=== PATIENT | male | born 1950 | race Caucasian/White ===

== ENCOUNTER 2017-08-08 16:45 | Inpatient (IN) | payer OTHER, MEDICARE ==
[~2017-08-08] VITALS: Ht 172.7 cm; Wt 58.0 kg
[2017-08-08 16:51] VITALS: BP 111/60; PULSE 80; RESP 16; TEMP 99.2; O2SAT 93
[2017-08-08 17:34] LABS: BASOPHIL # 0.2 TH/MM3 (0-0.2); BASOPHIL % 0.8 % (0.0-2.0); EOSINOPHIL # 0.1 TH/MM3 (0-0.4); EOSINOPHIL % 0.4 % (0.0-4.0); HEMATOCRIT 34.2 % (39.0-51.0); HEMOGLOBIN 11.6 GM/DL (13.0-17.0); LYMPHOCYTE # 1.8 TH/MM3 (1.0-4.8); MEAN CELL VOLUME 87.3 FL (80.0-100.0); MEAN CORPUSCULAR HEMOGLOBIN 29.6 PG (27.0-34.0); MEAN CORPUSCULAR HGB CONC 33.9 % (32.0-36.0); MEAN PLATELET VOLUME 7.7 FL (7.0-11.0); MONO % 4.5 % (0.0-8.0); MONOCYTE # 1.3 TH/MM3 (0-0.9); NEUT % 88.3 % (16.0-70.0); PLATELET COUNT 831 TH/MM3 (150-450); RED BLOOD COUNT 3.92 MIL/MM3 (4.50-5.90); WHITE BLOOD COUNT 29.5 TH/MM3 (4.0-11.0)
--- NOTE | 2017-08-08 17:42 | RADRPT ---
EXAM DATE: 08/08/2017 5:24 PM EDT AGE/SEX: 66 years / Male INDICATIONS: Cough, shortness of breath and right sided chest pain. CLINICAL DATA: This is the patient's initial encounter. Patient reports that signs and symptoms have been present for 2 weeks and indicates a pain score of 6/10. MEDICAL/SURGICAL HISTORY: Chronic obstructive pulmonary disease. . Stents. COMPARISON: No prior [place] exams available for comparison. FINDINGS: PA and lateral views of the chest demonstrate the lungs to be symmetrically aerated with a moderate s ize left pleural effusion. Cardiomediastinal contours are unremarkable. Osseous structures are intact . Clips at the GE junction CONCLUSION: Moderate size right pleural effusion Electronically signed by: Bahman Wright MD 08/08/2017 5:40 PM EDT
[2017-08-08 17:50] LABS: ALBUMIN 2.3 GM/DL (3.4-5.0); AST (GOT) 32 U/L (15-37); BICARBONATE 23.6 MEQ/L (21.0-32.0); BLOOD UREA NITROGEN 13 MG/DL (7-18); CALCIUM 8.9 MG/DL (8.5-10.1); CHLORIDE 94 MEQ/L (98-107); CREATININE 0.69 MG/DL (0.60-1.30); GLOMERULAR FILTRATION RATE 115 ML/MIN (>89); GLUCOSE,RANDOM 98 MG/DL (74-106); SODIUM (NA) 128 MEQ/L (136-145)
[2017-08-08 17:52] LABS: ALT (GPT) 24 U/L (12-78)
[2017-08-08 17:55] LABS: ALKALINE PHOSPHATASE 170 U/L (45-117); TOTAL BILIRUBIN ADULT 0.5 MG/DL (0.2-1.0); TOTAL PROTEIN 7.6 GM/DL (6.4-8.2)
[2017-08-08] MEDS ORDERED: cefTRIAXone INJ 2,000 MG in SODIUM CHLORIDE 0.9% INJ 100 ML IV STA (18:25)
[2017-08-08] MEDS ORDERED: AZITHROMYCIN INJ 500 MG in SODIUM CHLOR 0.9% 250 ML INJ 250 ML IV STA (18:25)
--- NOTE | 2017-08-08 18:27 | PD ---
HPI Chief Complaint: Abnormal Results Time Seen by Provider: 18:25 Travel History International Travel<30 days: No Contact w/Intl Traveler<30days: No Traveled to known affect area: No History of Present Illness HPI 66-year-old male with history of CAD, COPD, tobacco dependency, presents emergency department for evaluation. Patient tells me he has been experiencing worsening weakness over the last 3 months. [facility]. He was told that his white count is 29 and he needed to come to the emergency department. He has had significant weight loss. He has had worsening shortness of breath and states that it is difficult to do any significant activity because he becomes short of breath. Patient states he has lost his appetite. He denies any fevers or chills. He does report continuing to smoke tobacco cigarettes. He has no other symptoms to report at this time. [facility] Past Medical History Cardiovascular Problems: Yes COPD: Yes Social History Tobacco Use: Yes Allergies-Medications (Allergen,Severity, Reaction): Coded Allergies: No Known Allergies (Unverified , 08/08/17) Reported Meds & Prescriptions Reported Meds & Active Scripts Active Reported Suboxone Sublingual Film (Buprenorphine-Naloxone Sublingual Film) 8-2 Mg Film 1 Film SL BID Unique ID number required: Omeprazole 40 Mg Cap 40 Mg BID Review of Systems Except as stated in HPI: all other systems reviewed are Neg Physical Exam Narrative GENERAL: Thin, chronically ill appearing patient, in no acute distress w SKIN: Focused skin assessment warm/dry. HEAD: Atraumatic. Normocephalic. EYES: Pupils equal and round. No scleral icterus. No injection or drainage. ENT: No nasal bleeding or discharge. Mucous membranes pink and moist. NECK: Trachea midline. No JVD. CARDIOVASCULAR: Regular rate and rhythm. RESPIRATORY: No accessory muscle use. Diminished, coarse to auscultation. Breath sounds equal bilaterally. GASTROINTESTINAL: Abdomen soft, non-tender, nondistended. Hepatic and splenic margins not palpable. MUSCULOSKELETAL: No obvious deformities. No clubbing. No cyanosis. No edema. NEUROLOGICAL: Awake and alert. No obvious cranial nerve deficits. Motor grossly within normal limits. Normal speech. PSYCHIATRIC: Appropriate mood and affect; insight and judgment normal. Data Data Last Documented VS Vital Signs Date Time Temp Pulse Resp B/P (MAP) Pulse Ox O2 Delivery O2 Flow Rate FiO2 08/08/17 18:37 98.1 66 19 127/61 (83) 95 Room Air Orders Orders Sepsis Workup Initiated (08/08/17 ) Complete Blood Count With Diff (08/08/17 16:53) Comprehensive Metabolic Panel (08/08/17 16:53) Lactic Acid Sepsis Protocol (08/08/17 16:53) Blood Culture (08/08/17 16:53) Iv Access Insert/Monitor (08/08/17 16:53) Oxygen Administration (08/08/17 16:53) Oximetry (08/08/17 16:53) Blood Glucose (08/08/17 16:53) Chest, Pa & Lat (08/08/17 ) Sodium Chlor 0.9% 1000 Ml Inj (Ns 1000 M (08/08/17 18:30) Ct Thorax/ Chest W Iv Contrast (08/08/17 ) Ceftriaxone Inj (Rocephin Inj) (08/08/17 18:25) Azithromycin Inj (Zithromax Inj) (08/08/17 18:25) Iohexol 350 Inj (Omnipaque 350 Inj) (08/08/17 19:05) Labs Laboratory Tests Test 08/08/17 17:05 08/08/17 17:10 White Blood Count 29.5 TH/MM3 Red Blood Count 3.92 MIL/MM3 Hemoglobin 11.6 GM/DL Hematocrit 34.2 % Mean Corpuscular Volume 87.3 FL Mean Corpuscular Hemoglobin 29.6 PG Mean Corpuscular Hemoglobin Concent 33.9 % Red Cell Distribution Width 15.0 % Platelet Count 831 TH/MM3 Mean Platelet Volume 7.7 FL Neutrophils (%) (Auto) 88.3 % Lymphocytes (%) (Auto) 6.0 % Monocytes (%) (Auto) 4.5 % Eosinophils (%) (Auto) 0.4 % Basophils (%) (Auto) 0.8 % Neutrophils # (Auto) 26.0 TH/MM3 Lymphocytes # (Auto) 1.8 TH/MM3 Monocytes # (Auto) 1.3 TH/MM3 Eosinophils # (Auto) 0.1 TH/MM3 Basophils # (Auto) 0.2 TH/MM3 CBC Comment AUTO DIFF Differential Comment AUTO DIFF CONFIRMED Platelet Estimate HIGH Platelet Morphology Comment NORMAL Blood Urea Nitrogen 13 MG/DL Creatinine 0.69 MG/DL Random Glucose 98 MG/DL Total Protein 7.6 GM/DL Albumin 2.3 GM/DL Calcium Level 8.9 MG/DL Alkaline Phosphatase 170 U/L Aspartate Amino Transf (AST/SGOT) 32 U/L Alanine Aminotransferase (ALT/SGPT) 24 U/L Total Bilirubin 0.5 MG/DL Sodium Level 128 MEQ/L Potassium Level 4.0 MEQ/L Chloride Level 94 MEQ/L Carbon Dioxide Level 23.6 MEQ/L Anion Gap 10 MEQ/L Estimat Glomerular Filtration Rate 115 ML/MIN Lactic Acid Level 1.2 mmol/L MDM Medical Decision Making Medical Screen Exam Complete: Yes Emergency Medical Condition: Yes Medical Record Reviewed: Yes Differential Diagnosis Pneumonia versus COPD exacerbation versus electrolyte abnormality versus neoplasm versus sepsis Narrative Course 66-year-old male presents emergency department for evaluation. Patient appears chronically ill. He is then. He has diminished and coarse breath sounds throughout. Sepsis workup was initiated in triage. Laboratory Tests Test 08/08/17 17:05 08/08/17 17:10 White Blood Count 29.5 TH/MM3 Red Blood Count 3.92 MIL/MM3 Hemoglobin 11.6 GM/DL Hematocrit 34.2 % Mean Corpuscular Volume 87.3 FL Mean Corpuscular Hemoglobin 29.6 PG Mean Corpuscular Hemoglobin Concent 33.9 % Red Cell Distribution Width 15.0 % Platelet Count 831 TH/MM3 Mean Platelet Volume 7.7 FL Neutrophils (%) (Auto) 88.3 % Lymphocytes (%) (Auto) 6.0 % Monocytes (%) (Auto) 4.5 % Eosinophils (%) (Auto) 0.4 % Basophils (%) (Auto) 0.8 % Neutrophils # (Auto) 26.0 TH/MM3 Lymphocytes # (Auto) 1.8 TH/MM3 Monocytes # (Auto) 1.3 TH/MM3 Eosinophils # (Auto) 0.1 TH/MM3 Basophils # (Auto) 0.2 TH/MM3 CBC Comment AUTO DIFF Differential Comment AUTO DIFF CONFIRMED Platelet Estimate HIGH Platelet Morphology Comment NORMAL Blood Urea Nitrogen 13 MG/DL Creatinine 0.69 MG/DL Random Glucose 98 MG/DL Total Protein 7.6 GM/DL Albumin 2.3 GM/DL Calcium Level 8.9 MG/DL Alkaline Phosphatase 170 U/L Aspartate Amino Transf (AST/SGOT) 32 U/L Alanine Aminotransferase (ALT/SGPT) 24 U/L Total Bilirubin 0.5 MG/DL Sodium Level 128 MEQ/L Potassium Level 4.0 MEQ/L Chloride Level 94 MEQ/L Carbon Dioxide Level 23.6 MEQ/L Anion Gap 10 MEQ/L Estimat Glomerular Filtration Rate 115 ML/MIN Lactic Acid Level 1.2 mmol/L Last Impressions Chest X-Ray 08/08/17 0000 Signed Impressions: CONCLUSION: Moderate size right pleural effusion Chest CT 08/08/17 0000 Signed Impressions: CONCLUSION: 1. Large right effusion and consolidation. 2. Granulomatous disease is noted as above. Patient has a leukocytosis of 29.5 with a neutrophilia of 26. Chemistry is with mild hyponatremia. Lactic acid is within normal limits of 1.2. Chest x- ray shows a moderate right sized pleural effusion. CT imaging shows large right effusion and consolidation. Granulomatous disease is noted. Patient was given azithromycin and Rocephin. I discussed the patient my attending physician who has reviewed the findings and assessed the patient. he will be admitted to hospitalist service. Plan is discussed with the patient and his at bedside. They are in agreement with this plan of care. Diagnosis Primary Impression: Pleural effusion Additional Impression: Leukocytosis Qualified Codes: D72.829 - Elevated white blood cell count, unspecified Admitting Information Admitting Physician Requests: Admit Condition: Stable ClaytonLupe bartlettstefani MARAVILLA Aug 08, 2017 18:27
[2017-08-08] MEDS ORDERED: OMEP40CA2 PO (18:28)
[2017-08-08] MEDS ORDERED: SUBO8MIS SL (18:28)
[2017-08-08] MEDS ORDERED: SODIUM CHLOR 0.9% 1000 ML INJ 1,000 ML IV ONE (18:30)
[2017-08-08 18:37] VITALS: BP 127/61; PULSE 65; PULSE 66; RESP 19; TEMP 98.1; TEMP 98.5; O2SAT 95
[2017-08-08] MEDS ORDERED: IOHEXOL 350 MG/ML 10 ML VIAL (for RAD DIAG) IVCONTRAST ONE (19:05)
--- NOTE | 2017-08-08 19:39 | RADRPT ---
EXAM DATE: 08/08/2017 7:02 PM EDT AGE/SEX: 66 years / Male INDICATIONS: Short of breath. CLINICAL DATA: This is the patient's initial encounter. Patient reports that signs and symptoms have been present for 1 day and indicates a pain score of 5/10. MEDICAL/SURGICAL HISTORY: None. None. RADIATION DOSE: 6.7 CTDI (mGy) COMPARISON: No prior [place] exams available for comparison. TECHNIQUE: Multiple contiguous axial images were obtained through the chest during bolus infusion of 100 ml Omnipaque 350 (iohexol) nonionic water-soluble contrast as a single exam dose. Images were obtained in suspended respiration using multiple row detector helical technique. Using automated ex posure control and adjustment of the mA and/or kV according to patient size, radiation dose was kept as low as reasonably achievable to obtain optimal diagnostic quality images. FINDINGS: There is calcified mediastinal adenopathy with multiple enlarged partially calcified lymph nodes thro ughout the mediastinum. There are calcified granulomas in the spleen. A large right-sided pleural eff usion is noted, calcified bilateral hilar lymph nodes, and there is consolidation in the right lower lobe. There are scattered calcified granulomas present. Review of lung windows demonstrate a 1.7 cm n odular focus in the left lower lobe likely related to atelectasis. CONCLUSION: 1. Large right effusion and consolidation. 2. Granulomatous disease is noted as above. Electronically signed by: Elvis Shahid MD 08/08/2017 7:38 PM EDT
[2017-08-08] MEDS ORDERED: SENNOSIDES 8.6 MG TAB PO PRN (22:30)
[2017-08-08] MEDS ORDERED: BISACODYL 10 MG SUPP RECTAL PRN (22:30)
[2017-08-08] MEDS ORDERED: RESP: ALBUTEROL 2.5 MG/IPRATROPIUM 0.5 MG NEB (PRN) NEB (22:30)
[2017-08-08] MEDS ORDERED: LACTULOSE SYRUP 20 GM/30 ML CUP PO PRN (22:30)
[2017-08-08] MEDS ORDERED: SODIUM CHLORIDE 0.9% FLUSH 10 ML FLUSH IV FLUSH PRN (22:30)
[2017-08-08] MEDS ORDERED: ACETAMINOPHEN 325 MG TAB PO PRN (22:30)
[2017-08-08] MEDS ORDERED: MAGNESIUM HYDROXIDE SUSP 30 ML CUP PO PRN (22:30)
[2017-08-08] MEDS ORDERED: NALOXONE HCL 0.4 MG/ML AMP IV PUSH PRN (22:30)
[2017-08-08] MEDS ORDERED: MORPHINE SULFATE 4 MG/ML INJ IV PUSH PRN (22:30)
--- NOTE | 2017-08-08 22:41 | HHI.HP ---
HPI Service [facility] Primary Care Physician [facility] Admission Diagnosis Sepsis; PNA Diagnoses: Travel History International Travel<30 Days: No Contact w/Intl Traveler <30 Da: No Traveled to Known Affected Are: No History of Present Illness 66-year-old male with a past medical history significant for hyperlipidemia, coronary artery disease, hepatitis C, fibromyalgia and chronic pain presents to the emergency department for evaluation of shortness of breath. The patient reports she has been short of breath 1 month. He reports he has had subjective fevers/chills and a productive cough for several weeks. He also complains of a 15-20 pound weight loss over the past month secondary to anorexia. He has a complicated past medical history involving a vagotomy and unknown stomach reconstruction/bypass. The patient is a poor historian and cannot tell me further details of his procedures or past medical history. He denies any chest pain. Reports anorexia and nausea. Denies abdominal pain/ diarrhea/vomiting. No lateralizing signs/symptoms. Review of Systems Except as stated in HPI: all other systems reviewed are Neg Past Family Social History Past Medical History Hyperlipidemia Coronary artery disease Hepatitis C Chronic pain Fibromyalgia Past Surgical History Cardiac cath with stent placement 1 Neck fusion Low back surgery Vagotomy Unspecified gastric surgery/bypass Reported Medications Reported Meds & Active Scripts Active Reported Suboxone Sublingual Film (Buprenorphine-Naloxone Sublingual Film) 8-2 Mg Film 1 Film SL BID Unique ID number required: Omeprazole 40 Mg Cap 40 Mg BID Allergies: Coded Allergies: No Known Allergies (Unverified , 08/08/17) Family History Father with CAD Social History Smokes approximately 1 pack per day. Denies alcohol and illicit drugs. Physical Exam Vital Signs Vital Signs Date Time Temp Pulse Resp B/P (MAP) Pulse Ox O2 Delivery O2 Flow Rate FiO2 08/08/17 18:37 98.1 66 19 127/61 (83) 95 Room Air 08/08/17 18:37 98.5 65 19 127/61 (83) 95 Room Air 08/08/17 18:30 Room Air 08/08/17 18:28 19 Room Air 08/08/17 16:51 99.2 80 16 111/60 (96) 93 Physical Exam GENERAL: Thin, male lying in bed SKIN: No rashes, ecchymoses or lesions. Cool and dry. HEAD: Atraumatic. Normocephalic. No temporal or scalp tenderness. EYES: Pupils equal round and reactive. Extraocular motions intact. No scleral icterus. No injection or drainage. ENT: Nose without bleeding, purulent drainage or septal hematoma. Throat without erythema, tonsillar hypertrophy or exudate. Uvula midline. Airway patent. NECK: Trachea midline. No JVD or lymphadenopathy. Supple, nontender, no meningeal signs. CARDIOVASCULAR: Regular rate and rhythm without murmurs, gallops, or rubs. RESPIRATORY: Crackles and decreased breath sounds on the right GASTROINTESTINAL: Abdomen soft, non-tender, nondistended. No hepato-splenomegaly , or palpable masses. No guarding. MUSCULOSKELETAL: Extremities without clubbing, cyanosis, or edema. No joint tenderness, effusion, or edema noted. No calf tenderness. NEUROLOGICAL: Awake and alert. Cranial nerves II through XII intact. Motor and sensory grossly within normal limits. Normal speech. Laboratory Laboratory Tests Test 08/08/17 17:05 08/08/17 17:10 White Blood Count 29.5 Red Blood Count 3.92 Hemoglobin 11.6 Hematocrit 34.2 Mean Corpuscular Volume 87.3 Mean Corpuscular Hemoglobin 29.6 Mean Corpuscular Hemoglobin Concent 33.9 Red Cell Distribution Width 15.0 Platelet Count 831 Mean Platelet Volume 7.7 Neutrophils (%) (Auto) 88.3 Lymphocytes (%) (Auto) 6.0 Monocytes (%) (Auto) 4.5 Eosinophils (%) (Auto) 0.4 Basophils (%) (Auto) 0.8 Neutrophils # (Auto) 26.0 Lymphocytes # (Auto) 1.8 Monocytes # (Auto) 1.3 Eosinophils # (Auto) 0.1 Basophils # (Auto) 0.2 CBC Comment AUTO DIFF Differential Comment AUTO DIFF CONFIRMED Platelet Estimate HIGH Platelet Morphology Comment NORMAL Blood Urea Nitrogen 13 Creatinine 0.69 Random Glucose 98 Total Protein 7.6 Albumin 2.3 Calcium Level 8.9 Alkaline Phosphatase 170 Aspartate Amino Transf (AST/SGOT) 32 Alanine Aminotransferase (ALT/SGPT) 24 Total Bilirubin 0.5 Sodium Level 128 Potassium Level 4.0 Chloride Level 94 Carbon Dioxide Level 23.6 Anion Gap 10 Estimat Glomerular Filtration Rate 115 Lactic Acid Level 1.2 Date/Time Source Procedure Growth Status 08/08/17 18:38 Blood Peripheral Aerobic Blood Culture Pending Received 08/08/17 18:38 Blood Peripheral Anaerobic Blood Culture Pending Received Result Diagram: 08/08/17 1705 08/08/17 1710 [place] VTE Risk Assessment Caprini VTE Risk Assessment: Mod/High Risk (score >= 2) Caprini Risk Assessment Model Point Value = 1 Point Value = 2 Point Value = 3 Point Value = 5 Age 41-60 Minor surgery BMI > 25 kg/m2 Swollen legs Varicose veins or History of unexplained or recurrent spontaneous Oral contraceptives or hormone replacement Sepsis (< 1 month) Serious lung disease, including pneumonia (< 1 month) Abnormal pulmonary function Acute myocardial infarction Congestive heart failure (< 1 month) History of inflammatory bowel disease Medical patient at bed rest Age 61-74 Arthroscopic surgery Major open surgery (> 45 min) Laparoscopic surgery (> 45 min) Malignancy Confined to bed (> 72 hours) Immobilizing plaster cast Central venous access Age >= 75 History of VTE Family history of VTE Factor V Leiden Prothrombin [id number] Lupus anticoagulant Anticardiolipin antibodies Elevated serum homocysteine Heparin-induced thrombocytopenia Other congenital or acquired thrombophilia Stroke (< 1 month) Elective arthroplasty Hip, pelvis, or leg fracture Acute spinal cord injury (< 1 month) Prophylaxis Regimen Total Risk Factor Score Risk Level Prophylaxis Regimen 0-1 Low Early ambulation 2 Moderate Order ONE of the following: *Sequential Compression Device (SCD) *Heparin 5000 units SQ BID 3-4 Higher Order ONE of the following medications: *Heparin 5000 units SQ TID *Enoxaparin/Lovenox 40 mg SQ daily (WT < 150 kg, CrCl > 30 mL/min) *Enoxaparin/Lovenox 30 mg SQ daily (WT < 150 kg, CrCl > 10-29 mL/min) *Enoxaparin/Lovenox 30 mg SQ BID (WT < 150 kg, CrCl > 30 mL/min) AND/OR *Sequential Compression Device (SCD) 5 or more Highest Order ONE of the following medications: *Heparin 5000 units SQ TID (Preferred with Epidurals) *Enoxaparin/Lovenox 40 mg SQ daily (WT < 150 kg, CrCl > 30 mL/min) *Enoxaparin/Lovenox 30 mg SQ daily (WT < 150 kg, CrCl > 10-29 mL/min) *Enoxaparin/Lovenox 30 mg SQ BID (WT < 150 kg, CrCl > 30 mL/min) AND *Sequential Compression Device (SCD) Assessment and Plan Assessment and Plan Assessment/plan: 1. Pneumonia/pleural effusion Patient with large right pleural effusion and consolidation on chest x-ray and chest CT, personally reviewed Rocephin/azithromycin Interventional radiology consulted for thoracentesis Given patient's recent weight loss and significant smoking history, cytology ordered 2. Anorexia/weight loss Unclear etiology Patient with complicated abdominal surgeries for unclear reasons as he is a poor historian, medical records requested from the [place] CT of the abdomen/pelvis pending 3. Hyperlipidemia/coronary artery disease Resume home medications once reconciled 4. Hepatitis C Follow-up as an outpatient 5. Chronic pain On Suboxone at home Morphine for pain FEN N.p.o. Electrolytes: Monitor and replete as needed NS at 70 cc/hour Holding pharmacologic anticoagulation for possible thoracentesis Physician Certification 2 Midnight Certification Type: Admission for Inpatient Services Order for Inpatient Services The services are ordered in accordance with Medicare regulations or non- Medicare payer requirements, as applicable. In the case of services not specified as inpatient-only, they are appropriately provided as inpatient services in accordance with the 2-midnight benchmark. Estimated LOS (days): 2 2 days is the estimated time the patient will need to remain in the hospital, assuming treatment plan goals are met and no additional complications. Post-Hospital Plan: Not yet determined Felicia Madden MD Aug 08, 2017 22:41
[2017-08-08 23:23] VITALS: BP 118/62; PULSE 62; RESP 19; TEMP 97.9; O2SAT 93
[2017-08-08] MEDS ORDERED: OMEP20CA2 PO (23:39)
[2017-08-09] VITALS (13 sets, daily range): BP systolic 104–134; BP diastolic 51–80; PULSE 47–99; RESP 16–18; TEMP 97.4–99.2; O2SAT 91–98
[2017-08-09] MEDS ORDERED: FAMOTIDINE 20 MG TAB PO ONE
[2017-08-09] MEDS: ONDANSETRON ODT 4 MG TAB PO PRN ×2 (00:02→11:03)
[2017-08-09] MEDS: SODIUM CHLOR 0.9% 1000 ML INJ 1,000 ML IV SCH ×2 (00:02→12:21)
[2017-08-09] MEDS: HEPARIN SODIUM - SQ 10,000 UNITS/ML VIAL SQ SCH ×3 (00:02→23:00)
[2017-08-09 00:44] LABS: INTERNATIONAL NORMALIZED RATIO 1.4 RATIO; PROTHROMBIN TIME - PATIENT 14.5 SEC (9.8-11.6)
[2017-08-09 06:25] LABS: AUTOMATED NEUTROPHIL # 16.5 TH/MM3 (1.8-7.7); BASOPHIL # 0.7 TH/MM3 (0-0.2); BASOPHIL % 3.2 % (0.0-2.0); EOSINOPHIL # 0.3 TH/MM3 (0-0.4); EOSINOPHIL % 1.4 % (0.0-4.0); HEMATOCRIT 29.9 % (39.0-51.0); HEMOGLOBIN 9.9 GM/DL (13.0-17.0); LYMPH % 6.9 % (9.0-44.0); LYMPHOCYTE # 1.4 TH/MM3 (1.0-4.8); MEAN CELL VOLUME 88.5 FL (80.0-100.0); MEAN CORPUSCULAR HEMOGLOBIN 29.2 PG (27.0-34.0); MEAN CORPUSCULAR HGB CONC 33.1 % (32.0-36.0); MEAN PLATELET VOLUME 7.8 FL (7.0-11.0); MONO % 6.8 % (0.0-8.0); MONOCYTE # 1.4 TH/MM3 (0-0.9); NEUT % 81.7 % (16.0-70.0); PLATELET COUNT 705 TH/MM3 (150-450); RED BLOOD COUNT 3.38 MIL/MM3 (4.50-5.90); RED CELL DISTRIBUTION WIDTH 14.7 % (11.6-17.2); WHITE BLOOD COUNT 20.2 TH/MM3 (4.0-11.0)
[2017-08-09 07:04] LABS: BICARBONATE 23.9 MEQ/L (21.0-32.0); CALCIUM 7.8 MG/DL (8.5-10.1); CREATININE 0.55 MG/DL (0.60-1.30)
[2017-08-09] MEDS: SODIUM CHLORIDE 0.9% FLUSH 10 ML FLUSH IV FLUSH SCH ×2 (09:00→21:00)
[2017-08-09] MEDS: DOCUSATE SODIUM 50 MG/SENNA 8.6 MG TAB PO SCH ×2 (09:00→21:00)
[2017-08-09] MEDS ORDERED: LIDOCAINE HCL 1% 20 ML VIAL ONE (10:16)
--- NOTE | 2017-08-09 10:30 | RADRPT ---
EXAM DATE: 08/09/2017 10:19 AM EDT AGE/SEX: 66 years / Male INDICATIONS: Post right thoracentesis. CLINICAL DATA: This is the patient's subsequent encounter. Patient reports that signs and symptoms h ave been present for 2 days and indicates a pain score of 2/10. MEDICAL/SURGICAL HISTORY: Cardiovascular disease. Hypercholesterolemia. Coronary artery stent. Cardiac cath. COPD COMPARISON: [facility] – [place], CHEST PA & LAT, 08/08/2017. . FINDINGS: Portable upright expiratory view of the chest demonstrates a normal-sized cardiac silhouette. There i s a persistent right basilar pleural-parenchymal opacity. It has not significantly changed in size fr om yesterday's examination. No pneumothorax is identified following thoracentesis. Bones demonstrate no acute abnormality. CONCLUSION: No pneumothorax following recent right thoracentesis. The complex right effusion and right lower lobe airspace consolidation is stable. Electronically signed by: Haresh Schaffer MD 08/09/2017 10:28 AM EDT
--- NOTE | 2017-08-09 10:37 | PD.RAD ---
Post US Procedure Prog Note Pre Procedure Diagnosis: (1) Pleural effusion Post Procedure Diagnosis: (1) Pleural effusion Procedure Date: Aug 09, 2017 Supervising Radiologist: Haresh Schaffer Anesthesia: Local Plan of Activity Patient to Unit: ROPU Patient Condition: Good See PACS Report for procedural detail/treatment Drainage Procedure Procedure 1 Imaging Guidance: Ultrasound Side: Right Procedure Type: Thoracentesis Drainage: Suction Fluid Removal (CCs): 120 Fluid Description: Cloudy, Yellow Findings: pleural effusion has multiple septations therefore cannot be completely aspirated percutaneously. Aspirated fluid and sent for evaluation. Plan post cxr then return to floor Haresh Schaffer MD Aug 09, 2017 10:36
--- NOTE | 2017-08-09 10:39 | RADRPT ---
EXAM DATE: 08/09/2017 10:14 AM EDT AGE/SEX: 66 years / Male INDICATIONS: Right pleural effusion. CLINICAL DATA: This is the patient's initial encounter. Patient reports that signs and symptoms have been present for 1 day and indicates a pain score of 0/10. MEDICAL/SURGICAL HISTORY: Hypercholesterolemia. Gastroesophageal reflux disease. Hepatitis C. COPD. . Cardiac catheterization with stent placement. Spinal fusion. Stomach surgery. [place] [facility] [place]. . FLUID: Total volume of 120 cc cc of cloudy, yellow fluid was removed. Fluid was sent to lab for ordered studies. . . TECHNIQUE: Ultrasound guidance for thoracentesis. Thoracentesis. The risks, benefits, and alternatives to ultrasound guided thoracentesis were explained to the patien t in lay simple terms, including the risk of bleeding and infection. Written and verbal informed con sent was obtained. Appropriate area for right thoracentesis was marked under ultrasound guidance with the patient in the upright position. Overlying skin was prepped and draped in the usual sterile fashion and with local anesthetic, a dermatotomy was made with an 11 blade scalpel. A 6 [place] thoracentesis catheter was placed in the pleural space and fluid was removed. Catheter was then removed and a sterile dressing applied. There were no immediate complications. The patient tolerated the procedure well and the lef t the ultrasound suite in stable condition. Chest radiograph is to be obtained. FINDINGS: The right pleural effusion is very complex containing multiple septations. Therefore, it isn't possib le to percutaneously aspirate the entire pleural fluid collection. We therefore aspirated a small vol ume of fluid to send for sampling. CONCLUSION: Uncomplicated right thoracentesis. As described above, the pleural effusion is complex containing mul tiple septations preventing complete evacuation. Electronically signed by: Haresh Schaffer MD 08/09/2017 10:38 AM EDT
[2017-08-09 11:07] LABS: GLUCOSE,PLEURAL FLUID LESS THAN 1 MG/DL
[2017-08-09 11:25] LABS: PLEURAL FLUID LYMPHS 1 %; PLEURAL FLUID POLYS (SEGS) 99 %; PLEURAL FLUID RBC 550 /MM3 (0-0); PLEURAL FLUID WBC 41750 /MM3 (0-10)
[2017-08-09 11:37] LABS: TOTAL PROTEIN,PLEURAL FLUID 4.6 GM/DL
--- NOTE | 2017-08-09 13:23 | HHI.PR ---
Subjective Remarks Follow-up community-acquired bacterial pneumonia/right large pleural effusion August 09, 2017-patient seen and examined, status post thoracentesis. Continued to have shortness of breath however denies any chest pain. Positive for cough production. Currently afebrile. by the bedside. Objective Vitals Vital Signs Date Time Temp Pulse Resp B/P (MAP) Pulse Ox O2 Delivery O2 Flow Rate FiO2 08/09/17 12:09 97.9 76 17 104/51 (68) 93 08/09/17 10:30 60 16 113/58 (76) 92 08/09/17 10:15 98.3 58 16 111/51 (71) 91 08/09/17 09:36 98.2 90 18 106/58 (74) 94 08/09/17 08:09 97.7 62 17 111/59 (76) 94 08/09/17 08:00 Room Air 08/09/17 08:00 55 08/09/17 04:00 47 08/09/17 04:00 Room Air 08/09/17 04:00 97.4 99 18 134/80 (98) 98 08/09/17 00:00 97.9 69 17 114/59 (77) 93 08/09/17 00:00 Room Air 08/09/17 00:00 59 08/08/17 23:23 97.9 62 19 118/62 (80) 93 08/08/17 18:37 98.1 66 19 127/61 (83) 95 Room Air 08/08/17 18:37 98.5 65 19 127/61 (83) 95 Room Air 08/08/17 18:30 Room Air 08/08/17 18:28 19 Room Air 08/08/17 16:51 99.2 80 16 111/60 (77) 93 I/O 08/08/17 08/08/17 08/08/17 08/09/17 08/09/17 08/09/17 06:59 14:59 22:59 06:59 14:59 22:59 Intake Total 1350 ml 840 ml Output Total 450 ml Balance 1350 ml 390 ml Intake Oral 240 ml IV Total 1350 ml 600 ml Output Urine Total 450 ml # Bowel Movements 0 Result Diagram: 08/09/17 0450 08/09/17 0450 Imaging Last Impressions Chest X-Ray 08/09/17 0953 Signed Impressions: CONCLUSION: No pneumothorax following recent right thoracentesis. The complex right effusio n and right lower lobe airspace consolidation is stable. Thoracentesis Ultrasound 08/09/17 Signed Impressions: CONCLUSION: Uncomplicated right thoracentesis. As described above, the pleural effusion is complex containing multiple septations preventing complete evacuation. Chest CT 08/08/17 Signed Impressions: CONCLUSION: 1. Large right effusion and consolidation. 2. Granulomatous disease is noted as above. Objective Remarks GENERAL: NAD however cachectic looking man SKIN: Warm and dry. HEAD: Normocephalic. EYES: No scleral icterus. No injection or drainage. NECK: Supple, trachea midline. No JVD or lymphadenopathy. CARDIOVASCULAR: Regular rate and rhythm without murmurs, gallops, or rubs. RESPIRATORY: Breath sounds decrease mostly on the right. No accessory muscle use. GASTROINTESTINAL: Abdomen soft, non-tender, nondistended. MUSCULOSKELETAL: No cyanosis, or edema. BACK: Nontender without obvious deformity. No CVA tenderness. Procedures Thoracentesis A/P Problem List: (1) Pleural effusion on right ICD Code: J90 - Pleural effusion, not elsewhere classified (2) Community acquired bacterial pneumonia ICD Code: J15.9 - Unspecified bacterial pneumonia Assessment and Plan 66-year-old man with Community-acquired bacterial pneumonia CT chest noted with finding of consolidation Currently on azithromycin and Rocephin Check pneumococcal and Legionella urinary antigens Check sputum culture Maintain oxygen saturation above 88%, DuoNeb and Mucinex ID and pulmonary medicine consultation as needed Large right pleural effusion Status post thoracentesis pending cytology report Check tumor marker in the face of patient's weight loss Anorexia/weight loss Unclear etiology Patient with complicated abdominal surgeries for unclear reasons as he is a poor historian, medical records requested from the [place] CT of the abdomen/pelvis pending Check tumor markers including AFP, CA 19 9, CEA, LDH Normochromic normocytic anemia H&H stable and continue to monitor Thrombocytosis Likely 2/2 current infectious process, continue to monitor Hyperlipidemia/coronary artery disease Resume home medications once reconciled Hepatitis C Follow-up as an outpatient Chronic pain On Suboxone at home Morphine for pain Carlos Brooks MD Aug 09, 2017 13:23
[2017-08-09 14:52] LABS: CARCINOEMBRYONIC ANTIGEN 3.5 NG/ML (0.2-5.0)
[2017-08-09 15:29] LABS: CA 19-9 1.3 U/ML (0.0-35.0)
[2017-08-09] MEDS ORDERED: cefTRIAXone INJ 1,000 MG in SODIUM CHLORIDE 0.9% INJ 100 ML IV SCH (17:00)
[2017-08-09] MEDS: AZITHROMYCIN INJ 500 MG in SODIUM CHLOR 0.9% 250 ML INJ 250 ML IV SCH (18:52)
[2017-08-09] MEDS ORDERED: DIATRIZOATE MEGLUM/DIATRIZOATE SOD 9 ML CUP PO ONE (19:15)
[2017-08-09] MEDS: guaiFENesin E.R. 600 MG TAB PO SCH (21:00)
[2017-08-09] MEDS ORDERED: IOHEXOL 350 MG/ML 10 ML VIAL (for RAD DIAG) IVCONTRAST ONE (22:32)
--- NOTE | 2017-08-09 22:44 | RADRPT ---
EXAM DATE: 08/09/2017 10:35 PM EDT AGE/SEX: 66 years / Male INDICATIONS: Weight loss; pleural effusion. CLINICAL DATA: This is the patient's initial encounter. Patient reports that signs and symptoms have been present for 3 days and indicates a pain score of 5/10. MEDICAL/SURGICAL HISTORY: Chronic obstructive pulmonary disease. Hepatitis C. CAD. None. ORAL CONTRAST: Prescribed oral contrast ingested. RADIATION DOSE: 5.1 CTDI (mGy) COMPARISON: CT thorax 08/08/2017 . TECHNIQUE: Multiple contiguous axial images were obtained through the abdomen and pelvis following b olus infusion of 70 ml Omnipaque 350 (iohexol) nonionic water-soluble contrast as a single exam dos e. Prescribed oral contrast ingested. Using automated exposure control and adjustment of the mA and/ or kV according to patient size, the radiation dose was kept as low as reasonably achievable to obtai n optimal diagnostic quality images. FINDINGS: Lower Lungs: A loculated effusion is seen involving the right hemithorax with associated consolidatio n of the right lower lobe. This is unchanged within its visualized aspects from yesterday's study. . Liver: The liver has a homogeneous density without space-occupying lesion. There is no dilation of th e biliary tree. Spleen: Homogeneous density without enlargement. Granulomatous calcifications involving the spleen. Pancreas: Unremarkable without mass or calcification. Kidneys: Normal in size and shape. No evidence of mass or hydronephrosis. Adrenal Glands: Unremarkable. Aorta: The aorta and proximal iliac vessels are grossly unremarkable without aneurysmal dilation. Bowel/Mesentery: The bowel loops are grossly unremarkable. The cecum and sigmoid colon have a normal configuration. Abdominal Wall: Intact. Retroperitoneum: No evidence of adenopathy in the retrocrural, para-aortic, or deep pelvic regions. Bladder: Contours are smooth. Reproductive Organs: Trace amount of free fluid within the pelvis. No abnormal masses or calcificati ons seen. Inguinal: The inguinal region is unremarkable without evidence of adenopathy. Bony Structures: Unremarkable. CONCLUSION: 1. Loculated pleural effusion and associated right lower lobe consolidation are unchanged from yeste rday's exam. 2. Trace amount of free fluid within the pelvis. 3. No acute abnormality. Electronically signed by: Neo Gutierrez MD 08/09/2017 10:43 PM EDT
[2017-08-10] VITALS (7 sets, daily range): BP systolic 107–127; BP diastolic 56–60; PULSE 62–82; RESP 17; TEMP 97.6–99.2; O2SAT 90–96
[2017-08-10 06:25] LABS: BASOPHIL # 0.1 TH/MM3 (0-0.2); BASOPHIL % 0.8 % (0.0-2.0); EOSINOPHIL # 0.1 TH/MM3 (0-0.4); EOSINOPHIL % 0.8 % (0.0-4.0); HEMATOCRIT 28.2 % (39.0-51.0); HEMOGLOBIN 9.4 GM/DL (13.0-17.0); LYMPH % 7.3 % (9.0-44.0); LYMPHOCYTE # 1.2 TH/MM3 (1.0-4.8); MEAN CORPUSCULAR HEMOGLOBIN 29.5 PG (27.0-34.0); MEAN CORPUSCULAR HGB CONC 33.5 % (32.0-36.0); MEAN PLATELET VOLUME 7.7 FL (7.0-11.0); MONO % 8.9 % (0.0-8.0); MONOCYTE # 1.5 TH/MM3 (0-0.9); NEUT % 82.2 % (16.0-70.0); PLATELET COUNT 686 TH/MM3 (150-450); RED CELL DISTRIBUTION WIDTH 14.9 % (11.6-17.2)
[2017-08-10] MEDS: SODIUM CHLOR 0.9% 1000 ML INJ 1,000 ML IV SCH ×2 (06:39→16:16)
[2017-08-10 07:05] LABS: ALBUMIN 1.6 GM/DL (3.4-5.0); ALKALINE PHOSPHATASE 125 U/L (45-117); ALT (GPT) 19 U/L (12-78); AST (GOT) 31 U/L (15-37); BICARBONATE 22.6 MEQ/L (21.0-32.0); BLOOD UREA NITROGEN 7 MG/DL (7-18); CALCIUM 7.8 MG/DL (8.5-10.1); CHLORIDE 101 MEQ/L (98-107); CREATININE 0.53 MG/DL (0.60-1.30); GLOMERULAR FILTRATION RATE 156 ML/MIN (>89); GLUCOSE,RANDOM 88 MG/DL (74-106); SODIUM (NA) 134 MEQ/L (136-145); TOTAL BILIRUBIN ADULT 0.3 MG/DL (0.2-1.0); TOTAL PROTEIN 5.6 GM/DL (6.4-8.2)
[2017-08-10] MEDS: SODIUM CHLORIDE 0.9% FLUSH 10 ML FLUSH IV FLUSH SCH ×2 (08:59→20:14)
[2017-08-10] MEDS: guaiFENesin E.R. 600 MG TAB PO SCH ×2 (09:00→20:14)
[2017-08-10] MEDS: DOCUSATE SODIUM 50 MG/SENNA 8.6 MG TAB PO SCH ×2 (09:00→20:14)
[2017-08-10] MEDS: ONDANSETRON ODT 4 MG TAB PO PRN (09:01)
[2017-08-10] MEDS ORDERED: KETOROLAC TROMETHAMINE 10 MG TAB PO PRN (10:15)
--- NOTE | 2017-08-10 11:07 | HHI.PR ---
Subjective Remarks Follow-up community-acquired bacterial pneumonia/right large pleural effusion August 09, 2017-patient seen and examined, status post thoracentesis. Continued to have shortness of breath however denies any chest pain. Positive for cough production. Currently afebrile. by the bedside. August 11, 2027-patient seen and examined, reports some improvement of shortness of breath and denies any chest pain. States however he does not like to be in hospital. Objective Vitals Vital Signs Date Time Temp Pulse Resp B/P (MAP) Pulse Ox O2 Delivery O2 Flow Rate FiO2 08/10/17 08:09 98.1 63 17 127/60 (82) 95 08/10/17 04:00 99.2 77 17 115/58 (77) 90 08/10/17 00:00 98.4 68 17 109/59 (76) 91 08/09/17 20:00 Room Air 08/09/17 20:00 99.2 72 18 117/56 (76) 94 08/09/17 17:30 94 21 08/09/17 16:00 98.1 68 17 104/54 (71) 92 08/09/17 14:15 94 21 08/09/17 12:09 97.9 76 17 104/51 (68) 93 08/09/17 12:00 75 08/09/17 12:00 75 I/O 08/09/17 08/09/17 08/09/17 08/10/17 08/10/17 08/10/17 06:59 14:59 22:59 06:59 14:59 22:59 Intake Total 840 ml 1360 ml 1560 ml 1120 ml Output Total 450 ml Balance 390 ml 1360 ml 1560 ml 1120 ml Intake Oral 240 ml 360 ml 1210 ml 120 ml IV Total 600 ml 1000 ml 350 ml 1000 ml Output Urine Total 450 ml # Voids 5 2 # Bowel Movements 0 0 0 Result Diagram: 08/10/17 0541 08/10/17 0541 Imaging Last Impressions Chest X-Ray 08/09/17 0953 Signed Impressions: CONCLUSION: No pneumothorax following recent right thoracentesis. The complex right effusio n and right lower lobe airspace consolidation is stable. Thoracentesis Ultrasound 08/09/17 0000 Signed Impressions: CONCLUSION: Uncomplicated right thoracentesis. As described above, the pleural effusion is complex containing multiple septations preventing complete evacuation. Abdomen/Pelvis CT 08/09/17 Signed Impressions: CONCLUSION: 1. Loculated pleural effusion and associated right lower lobe consolidation ar e unchanged from yesterday's exam. 2. Trace amount of free fluid within the pelvis. 3. No acute abnormality. Chest CT 08/08/17 Signed Impressions: CONCLUSION: 1. Large right effusion and consolidation. 2. Granulomatous disease is noted as above. Objective Remarks GENERAL: NAD however cachectic looking man SKIN: Warm and dry. HEAD: Normocephalic. EYES: No scleral icterus. No injection or drainage. NECK: Supple, trachea midline. No JVD or lymphadenopathy. CARDIOVASCULAR: Regular rate and rhythm without murmurs, gallops, or rubs. RESPIRATORY: Breath sounds decrease mostly on the right. No accessory muscle use. GASTROINTESTINAL: Abdomen soft, non-tender, nondistended. MUSCULOSKELETAL: No cyanosis, or edema. BACK: Nontender without obvious deformity. No CVA tenderness. Procedures Thoracentesis A/P Problem List: (1) Pleural effusion on right ICD Code: J90 - Pleural effusion, not elsewhere classified (2) Community acquired bacterial pneumonia ICD Code: J15.9 - Unspecified bacterial pneumonia Assessment and Plan 66-year-old man with Community-acquired bacterial pneumonia CT chest noted with finding of consolidation Currently on azithromycin and Rocephin Pneumococcal and Legionella urinary antigens negative Sputum culture pending Maintain oxygen saturation above 88%, DuoNeb and Mucinex ID consult as needed Large right pleural effusion Status post thoracentesis pending cytology report Consult pulmonary medicine , as pleural effusion has multiple septations therefore cannot be completely aspirated percutaneously Tumor markers negative Anorexia/weight loss Unclear etiology Patient with complicated abdominal surgeries for unclear reasons as he is a poor historian, medical records requested from the [place] CT of the abdomen/pelvis noted Tumor markers including AFP, CA 19 9, CEA, LDH all negative Normochromic normocytic anemia H&H stable and continue to monitor Thrombocytosis Likely 2/2 current infectious process, continue to monitor Hyperlipidemia/coronary artery disease Continue home medications once reconciled Hepatitis C Follow-up as an outpatient Chronic pain On Suboxone at home Morphine for pain Carlos Brooks MD Aug 10, 2017 11:07
[2017-08-10] MEDS: HEPARIN SODIUM - SQ 10,000 UNITS/ML VIAL SQ SCH ×2 (11:42→22:54)
[2017-08-10] MEDS: RESP: ALBUTEROL 2.5 MG/IPRATROPIUM 0.5 MG NEB (SCH) NEB ×2 (16:02→19:41)
[2017-08-10] MEDS: PIPERACIL-TAZO 3.375 GM PREMIX 50 ML IV SCH ×2 (16:16→20:14)
[2017-08-10] MEDS: MORPHINE SULFATE 4 MG/ML INJ IV PUSH PRN ×2 (16:25→20:22)
[2017-08-10] MEDS: AZITHROMYCIN INJ 500 MG in SODIUM CHLOR 0.9% 250 ML INJ 250 ML IV SCH (18:35)
--- NOTE | 2017-08-10 19:15 | MB ---
cc: Kevin Myles MD, V J MD DATE: 08/10/2017 REASON FOR CONSULTATION: Pleural effusion. HISTORY OF PRESENT ILLNESS: This is a 66-year-old white male who has a prior history of coronary artery disease and hepatitis C as well as fibromyalgia and hyperlipidemia who was admitted via the emergency room with progressive shortness of breath. The patient stated he has been short of breath for more than a month. He has been having fevers, chills, cough with expectoration and lost weight, up to 20 pounds over the past month and a half. His appetite has been down and he has had a prior history of abdominal surgery with intestinal bypass. The patient, however, this time was having some tightness in his lower chest and, upon arrival, a CAT scan was done which showed evidence of a right pleural effusion with loculation and there was evidence of consolidation and granulomatous disease in the spleen as well as mediastinal adenopathy with calcifications. The patient states he has had no prior history of tuberculosis and there is no prior history for effusions; however, the patient has been followed at the [facility] and we do not have records from there as yet. Upon admission, however, he underwent a thoracentesis under ultrasound guidance and the results of the fluid are still pending. PAST MEDICAL HISTORY: Significant for hypertension, hyperlipidemia and hepatitis C, history of fibromyalgia and chronic pain and a history for cardiac catheterization and stenting as well as lumbar disk surgery and cervical disk fusion. PAST SURGICAL HISTORY: He has had a vagotomy and possible gastric bypass. HABITS: The patient smoked 1 pack per day for over 30 years until now. Denies significant alcohol intake. He is retired. MEDICATIONS: 1. Suboxone sublingual b.i.d. 2. Omeprazole 40 mg b.i.d. ALLERGIES: NONE LISTED. FAMILY HISTORY: Essentially noncontributory. REVIEW OF SYSTEMS: Patient complains of weight loss. He has loss of appetite. He has cough and chest tightness. He has epigastric distress and nausea. Denies leg or calf muscle pain. He has no urinary symptoms and denies any skin lesions. He has some anxiety with depression. PHYSICAL EXAMINATION: GENERAL: This is an averagely, elderly man who is in the bed, pale, in no acute distress. He is off oxygen. VITAL SIGNS: Blood pressure 120/60, pulse is 68, respirations 16, temperature 98.5. HEENT: Head is normocephalic. Pupils are reactive. Tongue is moist. Nasal mucosa edematous. Throat is mildly injected. NECK: Supple, no bruits or thyroid enlargement. LUNGS: There are decreased breath sounds over the right mid and lower chest with occasional wheezes bilaterally. HEART: The heart sounds are irregular S1 and S2 with no murmur. No S3 gallop. ABDOMEN: Soft and nontender. No organomegaly. Bowel sounds are active. EXTREMITIES: No lesions, no edema. NEUROLOGIC: Reflexes are 1+ with no gross motor deficits. Cranial nerves grossly intact. RECTAL: Deferred. SKIN: No lesions observed. ASSESSMENT: 1. Large loculated right pleural effusion, etiology undetermined, possible empyema and underlying pneumonia. 2. Chronic obstructive pulmonary disease. 3. Hyperlipidemia and coronary artery disease. 4. Weight loss. 5. History of hepatitis C. 6. Chronic back pain. PLAN: The patient had a thoracentesis done, but the results are still pending. He is on antibiotics, which we will continue and switch to Zosyn in place of Rocephin 3.375 grams intravenous every 8 hours and continue Zithromax 500 mg IV daily. Nebulized DuoNeb solution added q.i.d. We will request a thoracic surgical consult to see if he would require a decortication and the patient was informed of the same, but he is requesting to go home. I have stressed to him the importance of staying and getting the chest procedure completed to drain the right loculated effusion entirely and a pulmonary function study will be done at the bedside. Oxygen supplementation at 2 liters will be added as needed and incentive spirometry every 2 hours. Thank you, Dr. Brooks, for this consultation. Kevin Myles MD VBRAYAN/ , 06:42 PM , 07:15 PM
[2017-08-11] VITALS (8 sets, daily range): BP systolic 99–117; BP diastolic 54–62; PULSE 63–81; RESP 17–20; TEMP 97.8–100.5; O2SAT 91–95
[2017-08-11] MEDS: MORPHINE SULFATE 4 MG/ML INJ IV PUSH PRN ×6 (01:07→21:03)
[2017-08-11] MEDS: PIPERACIL-TAZO 3.375 GM PREMIX 50 ML IV SCH ×3 (04:24→21:00)
[2017-08-11 06:13] LABS: BASOPHIL # 0.2 TH/MM3 (0-0.2); EOSINOPHIL # 0.2 TH/MM3 (0-0.4); EOSINOPHIL % 1.3 % (0.0-4.0); HEMOGLOBIN 9.1 GM/DL (13.0-17.0); LYMPHOCYTE # 1.4 TH/MM3 (1.0-4.8); MEAN CELL VOLUME 87.6 FL (80.0-100.0); MEAN CORPUSCULAR HEMOGLOBIN 29.5 PG (27.0-34.0); MEAN CORPUSCULAR HGB CONC 33.6 % (32.0-36.0); MEAN PLATELET VOLUME 7.5 FL (7.0-11.0); MONO % 7.9 % (0.0-8.0); MONOCYTE # 1.3 TH/MM3 (0-0.9); NEUT % 80.8 % (16.0-70.0); PLATELET COUNT 604 TH/MM3 (150-450); RED BLOOD COUNT 3.08 MIL/MM3 (4.50-5.90); RED CELL DISTRIBUTION WIDTH 14.4 % (11.6-17.2)
[2017-08-11 06:41] LABS: ALBUMIN 1.6 GM/DL (3.4-5.0); AST (GOT) 40 U/L (15-37); BICARBONATE 22.9 MEQ/L (21.0-32.0); BLOOD UREA NITROGEN 6 MG/DL (7-18); CALCIUM 7.5 MG/DL (8.5-10.1); CHLORIDE 100 MEQ/L (98-107); CREATININE 0.67 MG/DL (0.60-1.30); GLOMERULAR FILTRATION RATE 119 ML/MIN (>89); GLUCOSE,RANDOM 90 MG/DL (74-106); SODIUM (NA) 134 MEQ/L (136-145)
[2017-08-11 06:43] LABS: ALT (GPT) 23 U/L (12-78)
[2017-08-11 06:44] LABS: ALKALINE PHOSPHATASE 143 U/L (45-117); TOTAL BILIRUBIN ADULT 0.3 MG/DL (0.2-1.0); TOTAL PROTEIN 5.7 GM/DL (6.4-8.2)
[2017-08-11] MEDS: RESP: ALBUTEROL 2.5 MG/IPRATROPIUM 0.5 MG NEB (SCH) NEB ×4 (08:02→19:05)
[2017-08-11] MEDS: SODIUM CHLOR 0.9% 1000 ML INJ 1,000 ML IV SCH (08:43)
[2017-08-11] MEDS: guaiFENesin E.R. 600 MG TAB PO SCH ×2 (08:43→21:04)
[2017-08-11] MEDS: SODIUM CHLORIDE 0.9% FLUSH 10 ML FLUSH IV FLUSH SCH ×2 (08:43→21:03)
[2017-08-11] MEDS: DOCUSATE SODIUM 50 MG/SENNA 8.6 MG TAB PO SCH ×2 (08:43→21:00)
--- NOTE | 2017-08-11 11:35 | HHI.PR ---
Subjective Remarks Follow-up community-acquired bacterial pneumonia/right large pleural effusion August 09, 2017-patient seen and examined, status post thoracentesis. Continued to have shortness of breath however denies any chest pain. Positive for cough production. Currently afebrile. by the bedside. August 11, 2027-patient seen and examined, reports some improvement of shortness of breath and denies any chest pain. States however he does not like to be in hospital. August 11, 2017-patient seen and examined, afebrile, no shortness of breath or chest pain. Upset that he has not been seen yet by [facility] Objective Vitals Vital Signs Date Time Temp Pulse Resp B/P (MAP) Pulse Ox O2 Delivery O2 Flow Rate FiO2 08/11/17 08:09 98.5 69 18 117/57 (77) 95 08/11/17 08:02 92 21 08/11/17 04:00 Room Air 21 08/11/17 04:00 100.3 81 17 116/56 (76) 91 08/11/17 00:00 100.5 70 17 111/56 (74) 94 08/11/17 00:00 Room Air 21 08/10/17 20:00 98.4 82 17 112/56 (74) 93 08/10/17 20:00 Room Air 21 08/10/17 19:43 95 21 08/10/17 16:09 97.7 63 17 107/58 (74) 96 08/10/17 12:09 97.6 62 17 123/58 (79) 95 I/O 08/10/17 08/10/17 08/10/17 08/11/17 08/11/17 08/11/17 07:00 15:00 23:00 07:00 15:00 23:00 Intake Total 1120 ml 1020 ml 342 ml Balance 1120 ml 1020 ml 342 ml Intake Oral 120 ml 720 ml 342 ml IV Total 1000 ml 300 ml # Voids 2 3 3 # Bowel Movements 0 1 2 Result Diagram: 08/11/1746 08/11/17 0546 Objective Remarks GENERAL: NAD however cachectic looking man SKIN: Warm and dry. HEAD: Normocephalic. EYES: No scleral icterus. No injection or drainage. NECK: Supple, trachea midline. No JVD or lymphadenopathy. CARDIOVASCULAR: Regular rate and rhythm without murmurs, gallops, or rubs. RESPIRATORY: Breath sounds decrease mostly on the right. No accessory muscle use. GASTROINTESTINAL: Abdomen soft, non-tender, nondistended. MUSCULOSKELETAL: No cyanosis, or edema. BACK: Nontender without obvious deformity. No CVA tenderness. Procedures Thoracentesis A/P Problem List: (1) Pleural effusion on right ICD Code: J90 - Pleural effusion, not elsewhere classified (2) Community acquired bacterial pneumonia ICD Code: J15.9 - Unspecified bacterial pneumonia Assessment and Plan 66-year-old man with Community-acquired bacterial pneumonia CT chest noted with finding of consolidation Currently on azithromycin and Zosyn Pneumococcal and Legionella urinary antigens negative Sputum culture pending Maintain oxygen saturation above 88%, DuoNeb and Mucinex ID consult as needed Large right pleural effusion Status post thoracentesis pending cytology report Appreciate input from pulmonary medicine , as pleural effusion has multiple septations therefore cannot be completely aspirated percutaneously Cardiothoracic surgery consultation pending for evaluation for possible VATS +/-decortication Continue with Zosyn and vancomycin Pleural fluid culture positive for anaerobic gram-positive cocci, Fusobacterium species Tumor markers negative Anorexia/weight loss Patient with complicated abdominal surgeries for unclear reasons as he is a poor historian, medical records requested from the [facility] of the abdomen/pelvis noted Tumor markers including AFP, CA 19 9, CEA, LDH all negative Normochromic normocytic anemia H&H stable and continue to monitor Thrombocytosis Likely 2/2 current infectious process, continue to monitor Hyperlipidemia/coronary artery disease Continue home medications once reconciled Hepatitis C Follow-up as an outpatient Chronic pain On Suboxone at home Morphine for pain Carlos Brooks MD Aug 11, 2017 11:35
[2017-08-11] MEDS: HEPARIN SODIUM - SQ 10,000 UNITS/ML VIAL SQ SCH ×2 (12:46→23:37)
[2017-08-11] MEDS ORDERED: CEFAZOLIN INJ 500 MG in SODIUM CHLORIDE 0.9% IRR BTL 500 ML IRRIGATION SCH (14:15)
[2017-08-11] MEDS ORDERED: SODIUM CHLORIDE 0.9% FLUSH 10 ML FLUSH IV FLUSH PRN (14:15)
[2017-08-11] MEDS ORDERED: ceFAZolin 2 GM PREMIX 50 ML IV SCH (14:15)
--- NOTE | 2017-08-11 16:13 | MB ---
cc: Tyra ShipmanabrahamTyra MARAVILLA DATE: 08/11/2017 DATE OF : 1950 HISTORY OF PRESENT ILLNESS: A 66-year-old male with history of coronary artery disease, hepatitis C, also fibromyalgia, hyperlipidemia, who presented to the emergency room with progressive shortness of breath over about a month. He has also had some fevers and chills, weight loss of 20 pounds in about [address] scan, which showed a large right pleural effusion with loculation, evidence of some consolidation, single granulomatous disease in the spleen as well as some mediastinal adenopathy. He denies having any recent travel. No tuberculosis. He has been followed by the [place], Dr. Donis of the [facility] team. He underwent thoracentesis where they removed about 120 mL of cloudy yellow fluid. 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 We were consulted for right video-assisted thoracoscopy with decortication. PAST MEDICAL HISTORY: Hypertension, hyperlipidemia, hepatitis C, fibromyalgia, chronic pain, history of prior cardiac catheterization with stenting, lumbar disk surgery, cervical disk fusion. ALLERGIES: NO KNOWN DRUG ALLERGIES.. HOME MEDICATIONS: Suboxone and omeprazole. HABITS: He smokes 1 pack for 30 years. Rare alcohol. , 2 children. Retired from the formerly [employer], also from the . REVIEW OF SYSTEMS: As above in the HPI. 12 systems unremarkable. PHYSICAL EXAMINATION: VITAL SIGNS: Blood pressure 118/60, heart rate of 70, temperature was 100.5, now 98.5. He is on room air. GENERAL: Awake, alert, in no acute distress. HEENT: Head is normocephalic, atraumatic. Pupils equal and reactive. Oral mucosa pink, moist. NECK: Supple. No JVD. CARDIOVASCULAR: Heart sounds S1, S2. Regular rate and rhythm. No rubs, murmurs, or gallops. LUNGS: Diminished in the right mid-lower lobe with a faint expiratory wheeze. ABDOMEN: Soft, nontender. No masses or organomegaly. EXTREMITIES: No cyanosis, clubbing, or edema. LABORATORY DATA: Hemoglobin 9.1, hematocrit of 27, white cell count of 16, platelet count of 604. Sodium 134, potassium 3.6, BUN of 6, creatinine 0.67, albumin 1.6. CA 19-9 is 1.3. CEA is 3.5. INR 1.4. Pleural Fluid: 41,000 WBCs, glucose less than 1. IMPRESSION: This is a 66-year-old male admitted with progressive shortness of breath, weight loss, fevers and chills with status post thoracentesis with positive Fusobacterium species, anaerobic gram-positive cocci in the pleural fluid suggestive of an empyema. The films have been evaluated by Dr. Magalys Montez. PLAN: Right thoracoscopy with decortication on Monday. RENITA Bright MD JRT/JONATHON , 02:31 PM , 04:12 PM
[2017-08-11 16:14] LABS: BILIRUBIN, URINE NEG (NEG); BLOOD, URINE NEG (NEG); GLUCOSE,URINE NEG (NEG); KETONE, URINE NEG (NEG); NITRITE,URINE NEG (NEG); URINE COLOR YELLOW (YELLW/STRAW); URINE LEUKOCYTE ESTERASE TRACE (NEG)
[2017-08-11] MEDS: ONDANSETRON ODT 4 MG TAB PO PRN (17:11)
[2017-08-11] MEDS: AZITHROMYCIN INJ 500 MG in SODIUM CHLOR 0.9% 250 ML INJ 250 ML IV SCH (17:16)
--- NOTE | 2017-08-11 19:26 | HHI.PR ---
Subjective Remarks He is having some fever.On IV Zosyn C/O pains along right chest . Pleural fluid has Fusobacterium. Off O2. Objective Vital Signs Date Time Temp Pulse Resp B/P (MAP) Pulse Ox O2 Delivery O2 Flow Rate FiO2 08/11/17 16:09 97.8 63 17 99/55 (70) 95 08/11/17 15:26 94 21 08/11/17 12:09 98.3 67 17 101/54 (70) 92 08/11/17 08:09 98.5 69 18 117/57 (77) 95 08/11/17 08:02 92 21 08/11/17 04:00 Room Air 21 08/11/17 04:00 100.3 81 17 116/56 (76) 91 08/11/17 00:00 100.5 70 17 111/56 (74) 94 08/11/17 00:00 Room Air 21 08/10/17 20:00 98.4 82 17 112/56 (74) 93 08/10/17 20:00 Room Air 08/10/17 19:43 95 21 I/O 08/10/17 08/10/17 08/10/17 08/11/17 08/11/17 08/11/17 07:00 15:00 23:00 07:00 15:00 23:00 Intake Total 1120 ml 1020 ml 342 ml 720 ml Balance 1120 ml 1020 ml 342 ml 720 ml Intake Oral 120 ml 720 ml 342 ml 720 ml IV Total 1000 ml 300 ml # Voids 2 3 3 3 # Bowel Movements 0 1 2 1 Result Diagram: 08/11/17 0546 08/11/17 0546 Objective Remarks GENERAL: This is an averagely, elderly man who is in the bed, pale, in no acute distress. He is off oxygen. HEENT: Head is normocephalic. Pupils are reactive. Tongue is moist. Nasal mucosa edematous. Throat is mildly injected. NECK: Supple, no bruits or thyroid enlargement. LUNGS: There are decreased breath sounds over the right mid and lower chest with occasional wheezes bilaterally. HEART: The heart sounds are irregular S1 and S2 with no murmur. No S3 gallop. ABDOMEN: Soft and nontender. No organomegaly. Bowel sounds are active. EXTREMITIES: No lesions, no edema. NEUROLOGIC: Reflexes are 1+ with no gross motor deficits. Cranial nerves grossly intact. RECTAL: Deferred. SKIN: No lesions observed. Assessment and Plan Assessment and Plan ASSESSMENT: 1. Large loculated right pleural effusion, etiology undetermined, possible empyema and underlying pneumonia. 2. Chronic obstructive pulmonary disease. 3. Hyperlipidemia and coronary artery disease. 4. Weight loss. 5. History of hepatitis C. 6. Chronic back pain. Plan : 1. Continue antibiotics and add Vanco 2. O2 2 L. 3. Nebs qid , duoneb 4. IS Q2H. 5. Thoracic surgery for decortication 6. CBC,BMP in am Kevin Myles MD Aug 11, 2017 19:26
[2017-08-11] MEDS: VANCOMYCIN INJ 1,000 MG in SODIUM CHLOR 0.9% 250 ML INJ 250 ML IV SCH (21:03)
[2017-08-12] VITALS (8 sets, daily range): BP systolic 101–130; BP diastolic 51–74; PULSE 58–76; RESP 16–20; TEMP 96.6–98.2; O2SAT 93–96
[2017-08-12] MEDS: MORPHINE SULFATE 4 MG/ML INJ IV PUSH PRN ×6 (03:51→20:50)
[2017-08-12] MEDS: PIPERACIL-TAZO 3.375 GM PREMIX 50 ML IV SCH ×3 (05:47→23:06)
[2017-08-12] MEDS: RESP: ALBUTEROL 2.5 MG/IPRATROPIUM 0.5 MG NEB (SCH) NEB ×4 (07:23→19:16)
[2017-08-12] MEDS: DOCUSATE SODIUM 50 MG/SENNA 8.6 MG TAB PO SCH ×2 (09:00→20:49)
[2017-08-12 09:20] LABS: AUTOMATED NEUTROPHIL # 15.5 TH/MM3 (1.8-7.7); BASOPHIL # 0.2 TH/MM3 (0-0.2); EOSINOPHIL # 0.4 TH/MM3 (0-0.4); EOSINOPHIL % 2.1 % (0.0-4.0); HEMATOCRIT 28.4 % (39.0-51.0); HEMOGLOBIN 9.6 GM/DL (13.0-17.0); LYMPH % 5.5 % (9.0-44.0); MEAN CELL VOLUME 87.6 FL (80.0-100.0); MEAN CORPUSCULAR HEMOGLOBIN 29.5 PG (27.0-34.0); MEAN CORPUSCULAR HGB CONC 33.7 % (32.0-36.0); MEAN PLATELET VOLUME 7.5 FL (7.0-11.0); MONO % 6.7 % (0.0-8.0); MONOCYTE # 1.2 TH/MM3 (0-0.9); NEUT % 84.7 % (16.0-70.0); PLATELET COUNT 658 TH/MM3 (150-450); RED BLOOD COUNT 3.24 MIL/MM3 (4.50-5.90); RED CELL DISTRIBUTION WIDTH 14.9 % (11.6-17.2); WHITE BLOOD COUNT 18.3 TH/MM3 (4.0-11.0)
[2017-08-12] MEDS: guaiFENesin E.R. 600 MG TAB PO SCH ×2 (09:31→20:49)
[2017-08-12] MEDS: VANCOMYCIN INJ 1,000 MG in SODIUM CHLOR 0.9% 250 ML INJ 250 ML IV SCH ×2 (09:33→20:49)
[2017-08-12] MEDS: SODIUM CHLORIDE 0.9% FLUSH 10 ML FLUSH IV FLUSH SCH ×2 (09:47→20:53)
[2017-08-12 10:02] LABS: ALBUMIN 1.6 GM/DL (3.4-5.0); AST (GOT) 37 U/L (15-37); BICARBONATE 24.3 MEQ/L (21.0-32.0); BLOOD UREA NITROGEN 5 MG/DL (7-18); CALCIUM 8.1 MG/DL (8.5-10.1); CHLORIDE 104 MEQ/L (98-107); CREATININE 0.58 MG/DL (0.60-1.30); GLOMERULAR FILTRATION RATE 141 ML/MIN (>89); GLUCOSE,RANDOM 72 MG/DL (74-106); SODIUM (NA) 139 MEQ/L (136-145)
[2017-08-12 10:03] LABS: ALT (GPT) 21 U/L (12-78)
[2017-08-12 10:05] LABS: ALKALINE PHOSPHATASE 120 U/L (45-117); TOTAL BILIRUBIN ADULT 0.3 MG/DL (0.2-1.0); TOTAL PROTEIN 5.7 GM/DL (6.4-8.2)
[2017-08-12] MEDS: HEPARIN SODIUM - SQ 10,000 UNITS/ML VIAL SQ SCH ×2 (11:00→23:06)
--- NOTE | 2017-08-12 12:26 | HHI.PR ---
Subjective Remarks Follow-up community-acquired bacterial pneumonia/right large pleural effusion August 09, 2017-patient seen and examined, status post thoracentesis. Continued to have shortness of breath however denies any chest pain. Positive for cough production. Currently afebrile. by the bedside. August 11, 2027-patient seen and examined, reports some improvement of shortness of breath and denies any chest pain. States however he does not like to be in hospital. August 11, 2017-patient seen and examined, afebrile, no shortness of breath or chest pain. Upset that he has not been seen yet by CTS August 12, 2017-patient seen and examined, complains of shortness of breath without any chest pain. Afebrile. Plan for decortication Monday, August 14, 2017 Objective Vitals Vital Signs Date Time Temp Pulse Resp B/P (MAP) Pulse Ox O2 Delivery O2 Flow Rate FiO2 08/12/17 08:09 98.0 58 17 130/66 (87) 94 08/12/17 07:25 93 08/12/17 04:00 97.6 65 20 117/74 (88) 96 08/12/17 00:00 97.5 63 20 102/63 (76) 95 08/12/17 00:00 Room Air 21 08/11/17 20:00 Room Air 21 08/11/17 20:00 97.8 71 20 113/62 (79) 95 08/11/17 16:09 97.8 63 17 99/55 (70) 95 08/11/17 15:26 94 21 I/O 08/11/17 08/11/17 08/11/17 08/12/17 08/12/17 08/12/17 07:00 15:00 23:00 07:00 15:00 23:00 Intake Total 342 ml 1020 ml 480 ml Output Total 575 ml Balance 342 ml 1020 ml -95 ml Intake Oral 342 ml 720 ml 480 ml IV Total 300 ml Output Urine Total 575 ml # Voids 3 3 # Bowel Movements 2 1 Result Diagram: 08/12/17 0815 08/12/17 0813 Objective Remarks GENERAL: NAD however cachectic looking man SKIN: Warm and dry. HEAD: Normocephalic. EYES: No scleral icterus. No injection or drainage. NECK: Supple, trachea midline. No JVD or lymphadenopathy. CARDIOVASCULAR: Regular rate and rhythm without murmurs, gallops, or rubs. RESPIRATORY: Breath sounds decrease mostly on the right. No accessory muscle use. GASTROINTESTINAL: Abdomen soft, non-tender, nondistended. MUSCULOSKELETAL: No cyanosis, or edema. BACK: Nontender without obvious deformity. No CVA tenderness. Procedures Thoracentesis A/P Problem List: (1) Pleural effusion on right ICD Code: J90 - Pleural effusion, not elsewhere classified (2) Community acquired bacterial pneumonia ICD Code: J15.9 - Unspecified bacterial pneumonia Assessment and Plan 66-year-old man with Community-acquired bacterial pneumonia CT chest noted with finding of consolidation Currently on azithromycin and Zosyn Pneumococcal and Legionella urinary antigens negative Sputum culture pending Maintain oxygen saturation above 88%, DuoNeb and Mucinex ID consult as needed Large right pleural effusion Status post thoracentesis pending cytology report Appreciate input from pulmonary medicine , as pleural effusion has multiple septations therefore cannot be completely aspirated percutaneously Cardiothoracic surgery plan for VATS + decortication August 14, 2017 Continue with Zosyn, Vancomycin and vancomycin Pleural fluid culture positive for anaerobic gram-positive cocci, Fusobacterium species Tumor markers negative Anorexia/weight loss Patient with complicated abdominal surgeries for unclear reasons as he is a poor historian, [facility]/pelvis noted Tumor markers including AFP, CA 19 9, CEA, LDH all negative Normochromic normocytic anemia H&H stable and continue to monitor Thrombocytosis Likely 2/2 current infectious process, continue to monitor Hyperlipidemia/coronary artery disease Continue home medications once reconciled Hepatitis C Follow-up as an outpatient Chronic pain On Suboxone at home Morphine for pain Carlos Brooks MD Aug 12, 2017 12:26
--- NOTE | 2017-08-12 12:56 | HHI.PR ---
Subjective Remarks ALERT NO DISTRESS Objective Vital Signs Date Time Temp Pulse Resp B/P (MAP) Pulse Ox O2 Delivery O2 Flow Rate FiO2 08/12/17 08:09 98.0 58 17 130/66 (87) 94 08/12/17 08:00 96 Room Air 21 08/12/17 07:25 93 08/12/17 04:00 97.6 65 20 117/74 (88) 96 08/12/17 00:00 97.5 63 20 102/63 (76) 95 08/12/17 00:00 Room Air 21 08/11/17 20:00 Room Air 21 08/11/17 20:00 97.8 71 20 113/62 (79) 95 08/11/17 16:09 97.8 63 17 99/55 (70) 95 08/11/17 15:26 94 21 I/O 08/11/17 08/11/17 08/11/17 08/12/17 08/12/17 08/12/17 07:00 15:00 23:00 07:00 15:00 23:00 Intake Total 342 ml 1020 ml 480 ml Output Total 575 ml Balance 342 ml 1020 ml -95 ml Intake Oral 342 ml 720 ml 480 ml IV Total 300 ml Output Urine Total 575 ml # Voids 3 3 # Bowel Movements 2 1 Result Diagram: 08/12/17 0815 08/12/17 0813 Objective Remarks GENERAL: SKIN: Warm and dry. HEAD: Atraumatic. Normocephalic. EYES: Pupils equal and round. No scleral icterus. No injection or drainage. ENT: No nasal bleeding or discharge. Mucous membranes pink and moist. NECK: Trachea midline. No JVD. CARDIOVASCULAR: Regular rate and rhythm. RESPIRATORY: No accessory muscle use. decrease breath sounds at basis auscultation. Breath sounds equal bilaterally. GASTROINTESTINAL: Abdomen soft, non-tender, nondistended. Hepatic and splenic margins not palpable. MUSCULOSKELETAL: Extremities without clubbing, cyanosis, or edema. No obvious deformities. NEUROLOGICAL: Awake and alert. No obvious cranial nerve deficits. Motor grossly within normal limits. Five out of 5 muscle strength in the arms and legs. Normal speech. PSYCHIATRIC: Appropriate mood and affect; insight and judgment normal. Assessment and Plan Assessment and Plan imp loculated effusion ?empyema plan bronchodilator therapy antibx thoracic surgery following John Lopez MD 9, 2018 12:56
[2017-08-12] MEDS: ONDANSETRON ODT 4 MG TAB PO PRN (17:08)
[2017-08-12] MEDS: AZITHROMYCIN INJ 500 MG in SODIUM CHLOR 0.9% 250 ML INJ 250 ML IV SCH (17:08)
[2017-08-13] VITALS (8 sets, daily range): BP systolic 110–128; BP diastolic 56–63; PULSE 62–80; RESP 16–18; TEMP 96.7–98.6; O2SAT 92–95
[2017-08-13] MEDS: MORPHINE SULFATE 4 MG/ML INJ IV PUSH PRN ×7 (00:08→23:17)
[2017-08-13] MEDS: PIPERACIL-TAZO 3.375 GM PREMIX 50 ML IV SCH ×3 (04:25→20:12)
[2017-08-13] MEDS: ONDANSETRON ODT 4 MG TAB PO PRN (04:27)
[2017-08-13 07:05] LABS: AUTOMATED NEUTROPHIL # 14.2 TH/MM3 (1.8-7.7); BASOPHIL # 0.2 TH/MM3 (0-0.2); EOSINOPHIL # 0.6 TH/MM3 (0-0.4); EOSINOPHIL % 3.8 % (0.0-4.0); HEMATOCRIT 28.3 % (39.0-51.0); HEMOGLOBIN 9.4 GM/DL (13.0-17.0); LYMPH % 4.2 % (9.0-44.0); LYMPHOCYTE # 0.7 TH/MM3 (1.0-4.8); MEAN CELL VOLUME 87.9 FL (80.0-100.0); MEAN CORPUSCULAR HEMOGLOBIN 29.4 PG (27.0-34.0); MEAN CORPUSCULAR HGB CONC 33.4 % (32.0-36.0); MEAN PLATELET VOLUME 7.5 FL (7.0-11.0); MONOCYTE # 1.2 TH/MM3 (0-0.9); PLATELET COUNT 680 TH/MM3 (150-450); RED BLOOD COUNT 3.21 MIL/MM3 (4.50-5.90); RED CELL DISTRIBUTION WIDTH 14.9 % (11.6-17.2); WHITE BLOOD COUNT 16.9 TH/MM3 (4.0-11.0)
[2017-08-13 07:21] LABS: INTERNATIONAL NORMALIZED RATIO 1.3 RATIO; PROTHROMBIN TIME - PATIENT 13.5 SEC (9.8-11.6)
[2017-08-13] MEDS: RESP: ALBUTEROL 2.5 MG/IPRATROPIUM 0.5 MG NEB (SCH) NEB ×4 (08:07→19:19)
[2017-08-13] MEDS: guaiFENesin E.R. 600 MG TAB PO SCH ×2 (09:03→20:13)
[2017-08-13] MEDS: SODIUM CHLORIDE 0.9% FLUSH 10 ML FLUSH IV FLUSH SCH ×2 (09:03→20:13)
[2017-08-13] MEDS: DOCUSATE SODIUM 50 MG/SENNA 8.6 MG TAB PO SCH ×2 (09:03→20:13)
[2017-08-13] MEDS: VANCOMYCIN INJ 1,000 MG in SODIUM CHLOR 0.9% 250 ML INJ 250 ML IV SCH ×2 (09:03→20:08)
[2017-08-13] MEDS: HEPARIN SODIUM - SQ 10,000 UNITS/ML VIAL SQ SCH ×2 (11:00→20:13)
--- NOTE | 2017-08-13 11:01 | HHI.PR ---
Subjective Remarks Follow-up community-acquired bacterial pneumonia/right large pleural effusion August 09, 2017-patient seen and examined, status post thoracentesis. Continued to have shortness of breath however denies any chest pain. Positive for cough production. Currently afebrile. by the bedside. August 11, 2027-patient seen and examined, reports some improvement of shortness of breath and denies any chest pain. States however he does not like to be in hospital. August 11, 2017-patient seen and examined, afebrile, no shortness of breath or chest pain. Upset that he has not been seen yet by CTS August 12, 2017-patient seen and examined, complains of shortness of breath without any chest pain. Afebrile. Plan for decortication Monday, August 14, 2017 August 13, 2017-patient seen and examined, reports some improvement of shortness of breath today. No other issues overnight. Objective Vitals Vital Signs Date Time Temp Pulse Resp B/P (MAP) Pulse Ox O2 Delivery O2 Flow Rate FiO2 08/13/17 08:09 93 21 08/13/17 08:08 98.6 71 17 124/58 (80) 94 08/13/17 08:00 96 Room Air 21 08/13/17 06:45 16 08/13/17 04:00 96.7 74 16 120/56 (77) 94 08/13/17 00:00 97.1 62 16 114/60 (78) 95 08/12/17 22:10 Room Air 08/12/17 20:00 96.6 71 16 101/51 (68) 93 08/12/17 16:09 98.0 68 17 126/64 (84) 95 08/12/17 15:28 93 21 08/12/17 12:09 98.2 76 17 124/58 (80) 93 I/O 08/12/17 08/12/17 08/12/17 08/13/17 08/13/17 08/13/17 07:00 15:00 23:00 07:00 15:00 23:00 Intake Total 480 ml 410 ml 360 ml Output Total 575 ml 400 ml Balance -95 ml 10 ml 360 ml Intake Oral 480 ml 410 ml 360 ml Output Urine Total 575 ml 400 ml # Voids 2 Result Diagram: 08/13/17 0605 08/12/17 0813 Objective Remarks GENERAL: NAD however cachectic looking man SKIN: Warm and dry. HEAD: Normocephalic. EYES: No scleral icterus. No injection or drainage. NECK: Supple, trachea midline. No JVD or lymphadenopathy. CARDIOVASCULAR: Regular rate and rhythm without murmurs, gallops, or rubs. RESPIRATORY: Breath sounds decrease mostly on the right. No accessory muscle use. GASTROINTESTINAL: Abdomen soft, non-tender, nondistended. MUSCULOSKELETAL: No cyanosis, or edema. BACK: Nontender without obvious deformity. No CVA tenderness. Procedures Thoracentesis A/P Problem List: (1) Pleural effusion on right ICD Code: J90 - Pleural effusion, not elsewhere classified (2) Community acquired bacterial pneumonia ICD Code: J15.9 - Unspecified bacterial pneumonia Assessment and Plan 66-year-old man with Community-acquired bacterial pneumonia CT chest noted with finding of consolidation Currently on azithromycin and Zosyn Pneumococcal and Legionella urinary antigens negative Sputum culture negative Maintain oxygen saturation above 88%, DuoNeb and Mucinex ID consult as needed Large right pleural effusion Status post thoracentesis pending cytology report Appreciate input from pulmonary medicine , as pleural effusion has multiple septations therefore cannot be completely aspirated percutaneously Cardiothoracic surgery plan for VATS + decortication tomorrow August 14, 2017 Continue with Zosyn, Vancomycin and vancomycin Pleural fluid culture positive for anaerobic gram-positive cocci, Fusobacterium species Tumor markers negative Anorexia/weight loss Patient with complicated abdominal surgeries for unclear reasons as he is a poor historian, [facility]/pelvis noted Tumor markers including AFP, CA 19 9, CEA, LDH all negative Normochromic normocytic anemia H&H stable and continue to monitor Thrombocytosis Likely 2/2 current infectious process, continue to monitor Hyperlipidemia/coronary artery disease Continue home medications once reconciled Hepatitis C Follow-up as an outpatient Chronic pain On Suboxone at home Morphine for pain Carlos Brooks MD Aug 13, 2017 11:01
--- NOTE | 2017-08-13 16:52 | HHI.PR ---
Subjective Remarks ALERT NO DISTRESS Objective Vital Signs Date Time Temp Pulse Resp B/P (MAP) Pulse Ox O2 Delivery O2 Flow Rate FiO2 08/13/17 12:08 98.6 75 17 128/63 (84) 94 08/13/17 08:09 93 21 08/13/17 08:08 98.6 71 17 124/58 (80) 94 08/13/17 08:00 96 Room Air 21 08/13/17 06:45 16 08/13/17 04:00 96.7 74 16 120/56 (77) 94 08/13/17 00:00 97.1 62 16 114/60 (78) 95 08/12/17 22:10 Room Air 08/12/17 20:00 96.6 71 16 101/51 (68) 93 I/O 08/12/17 08/12/17 08/12/17 08/13/17 08/13/17 08/13/17 07:00 15:00 23:00 07:00 15:00 23:00 Intake Total 480 ml 410 ml 360 ml Output Total 575 ml 400 ml Balance -95 ml 10 ml 360 ml Intake Oral 480 ml 410 ml 360 ml Output Urine Total 575 ml 400 ml # Voids 2 Result Diagram: 08/13/17 0605 08/12/17 0813 Objective Remarks GENERAL: SKIN: Warm and dry. HEAD: Atraumatic. Normocephalic. EYES: Pupils equal and round. No scleral icterus. No injection or drainage. ENT: No nasal bleeding or discharge. Mucous membranes pink and moist. NECK: Trachea midline. No JVD. CARDIOVASCULAR: Regular rate and rhythm. RESPIRATORY: No accessory muscle use. decrease breath sounds at basis auscultation. Breath sounds equal bilaterally. GASTROINTESTINAL: Abdomen soft, non-tender, nondistended. Hepatic and splenic margins not palpable. MUSCULOSKELETAL: Extremities without clubbing, cyanosis, or edema. No obvious deformities. NEUROLOGICAL: Awake and alert. No obvious cranial nerve deficits. Motor grossly within normal limits. Five out of 5 muscle strength in the arms and legs. Normal speech. PSYCHIATRIC: Appropriate mood and affect; insight and judgment normal. Assessment and Plan Assessment and Plan imp loculated effusion ?empyema plan bronchodilator therapy antibx thoracic surgery following John Lopez MD Aug 13, 2017 16:52
[2017-08-13] MEDS: AZITHROMYCIN INJ 500 MG in SODIUM CHLOR 0.9% 250 ML INJ 250 ML IV SCH (18:00)
[2017-08-14] VITALS (12 sets, daily range): BP systolic 115–136; BP diastolic 56–69; PULSE 52–83; RESP 14–20; TEMP 98.3–98.8; O2SAT 92–96
[2017-08-14] MEDS: PIPERACIL-TAZO 3.375 GM PREMIX 50 ML IV SCH ×3 (03:36→22:36)
[2017-08-14] MEDS: ONDANSETRON ODT 4 MG TAB PO PRN (03:39)
[2017-08-14] MEDS: MORPHINE SULFATE 4 MG/ML INJ IV PUSH PRN ×3 (03:40→10:03)
[2017-08-14] MEDS ORDERED: METOPROLOL TARTRATE 25 MG TAB PO PRN (04:30)
[2017-08-14] MEDS ORDERED: POVIDONE IODINE 5% (ANTISEPSIS KIT) 4 APPLICATIONS EACH NARE PRN (04:30)
[2017-08-14] MEDS ORDERED: CHLORHEXIDINE GLUCONATE 2 % 1 PACK (2 CLOTHS) TOPICAL PRN (04:30)
[2017-08-14] MEDS ORDERED: SODIUM CHLORID 0.9% 500 ML IV PRN (04:30)
[2017-08-14 07:59] LABS: INTERNATIONAL NORMALIZED RATIO 1.3 RATIO; PROTHROMBIN TIME - PATIENT 13.1 SEC (9.8-11.6)
[2017-08-14] MEDS: RESP: ALBUTEROL 2.5 MG/IPRATROPIUM 0.5 MG NEB (SCH) NEB ×3 (08:08→14:55)
[2017-08-14] MEDS: guaiFENesin E.R. 600 MG TAB PO SCH ×2 (08:42→21:25)
[2017-08-14] MEDS: DOCUSATE SODIUM 50 MG/SENNA 8.6 MG TAB PO SCH (08:43)
[2017-08-14] MEDS: VANCOMYCIN INJ 1,000 MG in SODIUM CHLOR 0.9% 250 ML INJ 250 ML IV SCH (08:43)
[2017-08-14] MEDS: SODIUM CHLORIDE 0.9% FLUSH 10 ML FLUSH IV FLUSH SCH ×2 (08:43→21:26)
[2017-08-14] MEDS: HEPARIN SODIUM - SQ 10,000 UNITS/ML VIAL SQ SCH ×2 (11:00→21:27)
[2017-08-14] MEDS: LACTATED RINGER'S 1000 ML IV PRN ×2 (11:18→17:00)
[2017-08-14] MEDS ORDERED: DEXAMETHASONE ONE ×4 (11:30)
[2017-08-14] MEDS ORDERED: SODIUM CHLORIDE ONE ×4 (11:30)
[2017-08-14] MEDS ORDERED: BUPIVACAINE LIPOSOMAL ONE ×4 (11:30)
[2017-08-14] MEDS ORDERED: MORPHINE ONE ×4 (11:30)
[2017-08-14] MEDS ORDERED: DEXAMETHASONE SOD PHOS 4 MG/ML VIAL IV ONE (12:00)
[2017-08-14] MEDS ORDERED: ROCURONIUM INJ 50 MG/5 ML SYRINGE IV PUSH ONE (12:00)
[2017-08-14] MEDS ORDERED: NEOSTIGMINE 5 MG/5 ML SYRINGE IV PUSH ONE (12:00)
[2017-08-14] MEDS ORDERED: LIDOCAINE HCL 1% PF 5 ML SYRINGE OTHER ONE (12:00)
[2017-08-14] MEDS ORDERED: LABETALOL HCL 100 MG/20 ML VIAL IV ONE (12:00)
[2017-08-14] MEDS ORDERED: ONDANSETRON HCL 4 MG/2 ML VIAL IV ONE (12:00)
[2017-08-14] MEDS ORDERED: PROPOFOL 200 MG/20 ML AMP IV ONE (12:00)
[2017-08-14] MEDS ORDERED: GLYCOPYRROLATE 1 MG/5 ML SYRINGE IV PUSH ONE (12:00)
[2017-08-14] MEDS ORDERED: fentaNYL CITRATE 250 MCG/5 ML AMP ONE (12:14)
--- NOTE | 2017-08-14 14:29 | HHI.PR ---
Subjective Remarks Follow-up community-acquired bacterial pneumonia/right large pleural effusion August 09, 2017-patient seen and examined, status post thoracentesis. Continued to have shortness of breath however denies any chest pain. Positive for cough production. Currently afebrile. by the bedside. August 11, 2027-patient seen and examined, reports some improvement of shortness of breath and denies any chest pain. States however he does not like to be in hospital. August 11, 2017-patient seen and examined, afebrile, no shortness of breath or chest pain. Upset that he has not been seen yet by CTS August 12, 2017-patient seen and examined, complains of shortness of breath without any chest pain. Afebrile. Plan for decortication Monday, August 14, 2017 August 13, 2017-patient seen and examined, reports some improvement of shortness of breath today. No other issues overnight. August 14, 2017: Went for surgery by Dr Overton. The patient was seen in PACU. He appears in nad. Has some pain at the surgical site. chest tubes in place with serosanguineous fluid. no fever or chills. Feels tired. Satting well while on NC. Wants to go home soon. Objective Vitals Vital Signs Date Time Temp Pulse Resp B/P (MAP) Pulse Ox O2 Delivery O2 Flow Rate FiO2 08/14/17 12:05 98.5 77 16 120/58 (78) 93 08/14/17 11:02 93 Room Air 08/14/17 08:10 92 21 08/14/17 08:05 98.8 75 16 136/69 (91) 93 08/14/17 04:00 98.8 83 18 130/62 (84) 92 08/14/17 00:00 98.3 77 17 121/58 (79) 94 08/13/17 20:00 Room Air 08/13/17 20:00 97.9 80 18 110/56 (74) 94 08/13/17 19:20 92 21 08/13/17 16:08 98.5 67 16 110/58 (75) 93 I/O 08/13/17 08/13/17 08/13/17 08/14/17 08/14/17 08/14/17 07:00 15:00 23:00 07:00 15:00 23:00 Intake Total 360 ml 930 ml 100 ml 1000 ml Output Total 650 ml Balance 360 ml 930 ml 100 ml 350 ml Intake Oral 360 ml 580 ml IV Total 350 ml 100 ml Other 1000 ml Output Urine Total 350 ml Estimated Blood Loss 300 ml # Voids 2 6 # Bowel Movements 1 Result Diagram: 08/13/17 0605 08/12/17 0813 Imaging Last Impressions Chest X-Ray 08/14/17 Signed Impressions: CONCLUSION: 1. Right sided chest tube placement with evacuation of the effusion. A small p neumothorax is noted. 2. Consolidation involving the right base. Thoracentesis Ultrasound 08/09/17 Signed Impressions: CONCLUSION: Uncomplicated right thoracentesis. As described above, the pleural effusion is complex containing multiple septations preventing complete evacuation. Abdomen/Pelvis CT 08/09/17 Signed Impressions: CONCLUSION: 1. Loculated pleural effusion and associated right lower lobe consolidation ar e unchanged from yesterday's exam. 2. Trace amount of free fluid within the pelvis. 3. No acute abnormality. Chest CT 08/08/17 Signed Impressions: CONCLUSION: 1. Large right effusion and consolidation. 2. Granulomatous disease is noted as above. Objective Remarks GENERAL: 66 yo male appearing older than the stated age, cachectic, chronically ill appearing however not in apparent distress. CARDIOVASCULAR: Regular rate and rhythm without murmurs, gallops, or rubs. RESPIRATORY: Right back mid lateral chest tube in place, draining serosanguineous fluid Breath sounds decrease mostly on the right. No accessory muscle use. GASTROINTESTINAL: Abdomen soft, non-tender, nondistended. MUSCULOSKELETAL: No cyanosis, or edema. BACK: Nontender without obvious deformity. No CVA tenderness. Procedures Thoracentesis A/P Problem List: (1) Pleural effusion on right ICD Code: J90 - Pleural effusion, not elsewhere classified (2) Community acquired bacterial pneumonia ICD Code: J15.9 - Unspecified bacterial pneumonia Assessment and Plan 66-year-old man with Community-acquired bacterial pneumonia CT chest noted with finding of consolidation Currently on azithromycin and Zosyn Pneumococcal and Legionella urinary antigens negative Sputum culture negative S/p thoracentesis Fluid growing Fusobacterium and anaerobic gram positive Maintain oxygen saturation above 88%, DuoNeb and Mucinex ID consulted Large right pleural effusion Status post thoracentesis pending cytology report Appreciate input from pulmonary medicine , as pleural effusion has multiple septations therefore cannot be completely aspirated percutaneously Cardiothoracic surgery plan for VATS + decortication August 14, 2017 Continue with Zosyn, Vancomycin and vancomycin Pleural fluid culture positive for anaerobic gram-positive cocci, Fusobacterium species Tumor markers negative Anorexia/weight loss Patient with complicated abdominal surgeries for unclear reasons as he is a poor historian, [facility]/pelvis noted Tumor markers including AFP, CA 19 9, CEA, LDH all negative Normochromic normocytic anemia H&H stable and continue to monitor Thrombocytosis Likely 2/2 current infectious process, continue to monitor Hyperlipidemia/coronary artery disease Continue home medications once reconciled Hepatitis C Follow-up as an outpatient Chronic pain On Suboxone at home Morphine for pain Went for VATS by Dr Montez 08/14/[address] with serosanguineous fluid. DC when improved and cleared by consultants. Jacinda Garza MD Aug 14, 2017 14:29
[2017-08-14] MEDS ORDERED: MAGNESIUM HYDROXIDE SUSP 30 ML CUP PO PRN (14:30)
[2017-08-14] MEDS ORDERED: SODIUM CHLORIDE 0.9% FLUSH 10 ML FLUSH IV FLUSH PRN (14:30)
[2017-08-14] MEDS ORDERED: RESP: ALBUTEROL 2.5 MG/3 ML NEB (PRN) NEB (14:30)
[2017-08-14] MEDS ORDERED: Post-op Orders (for Pharmacy) OTHER ONE (14:30)
[2017-08-14] MEDS ORDERED: NALOXONE HCL 0.4 MG/ML AMP IV PUSH PRN (14:30)
[2017-08-14] MEDS ORDERED: ACETAMINOPHEN 325 MG TAB PO PRN (14:30)
[2017-08-14] MEDS ORDERED: ONDANSETRON HCL 4 MG/2 ML VIAL IV PUSH PRN (14:30)
--- NOTE | 2017-08-14 14:33 | PD.OP ---
cc: Kevin Myles MD; Magalys Montez MD Operative Report Date of Surgery: Aug 14, 2017 Preoperative Diagnosis: (1) Loculated empyema (2) Pleural effusion on right Postoperative Diagnosis: same Procedure: Right thoracoscopic exploration, drainage of pleural effusion, decortication Anesthesia: Dr. Parham Surgeon: Magalys Montez Scientific Programmer(s): Kalie Szymanski Operation and Findings: After adequate general anesthesia the patient was placed in the left lateral decubitus position and the right chest was prepped and draped in usual manner. A small posterior port incision was performed and electrocautery was used to obtain hemostasis and carry the dissection down through the fascia. A 22G seeker needle was used initially posteriorly and purulent fluid was aspirated. A port was initially placed posteriorly followed by the camera. Visualization was somewhat difficult. Overall, ~600 ml of purulent effusion was drained. Fluid was submitted for cultures and cytology. A second anterior port was positioned at ~6th intercostal space under direct vision. Blunt dissection was used to mobilize the lower lobe and drain as much of the effusion as possible. Exploration of the right hemithorax was significant for inflammation inferiorly and posteriorly with thickened visceral pleura which was peeled from the lung and submitted to Pathology. The right lung was venitlated with some re-expansion of the lower lobe. A 32F straight anterior and 32F right angle posterior chest tubes were positioned and secured with a 0- silk suture. The lung was ventilated and no significant air leaks were found. The subcutaneous tissues of the posterior port was approximated running 2-0 Vicryl suture and the skin was approximated using running 4-0 Monocryl subcuticular stitch. All sponge and history counts were correct at the close the procedure and the patient was transferred to the PACU in stable condition. Magalys Montez MD Aug 14, 2017 14:33
[2017-08-14] MEDS ORDERED: MORPHINE SULFATE 4 MG/ML INJ ONE (14:57)
--- NOTE | 2017-08-14 15:04 | EKG ---
Date Performed: 08/14/2017 Time Performed: 04:00:30 PTAGE: 66 years EKG: Sinus rhythm Nonspecific ST-T changes Abnormal ECG NO PREVIOUS TRACING DOCTOR: Dequan Brar Interpretating Date/Time 08/14/2017 15:01:57
[2017-08-14] MEDS ORDERED: *morphine SULFATE 4 MG/ML PERIprocedure ONLY ONE (15:20)
--- NOTE | 2017-08-14 15:39 | RADRPT ---
EXAM DATE: 08/14/2017 3:31 PM EDT AGE/SEX: 66 years / Male INDICATIONS: Post right thoracotomy. CLINICAL DATA: This is the patient's subsequent encounter. Patient reports that signs and symptoms h ave been present for 1 day and indicates a pain score of 8/10. MEDICAL/SURGICAL HISTORY: Chronic obstructive pulmonary disease. Cardiovascular disease. Hyperc holesterolemia Coronary artery stent. [place]PAR[place]: [facility] [place], [place]. . FINDINGS: A single AP view of the chest demonstrates placement of 2 thoracostomy tubes on the right. One course s posteriorly into the posterior costophrenic sulcus and the second courses cephalad with the tip at the apex. The effusion on the prior study has resolved. A small lateral and subpulmonic pneumothorax is now seen. Consolidation is seen within the right base. Left lung is clear. Heart is at the upper l imits of normal in terms of size. A cervical spinal fusion plate is noted. CONCLUSION: 1. Right sided chest tube placement with evacuation of the effusion. A small pneumothorax is noted. 2. Consolidation involving the right base. Electronically signed by: Neo Gutierrez MD 08/14/2017 3:38 PM EDT
[2017-08-14] MEDS: RESP: ALBUTEROL 2.5 MG/3 ML NEB (SCH) NEB (15:59)
--- NOTE | 2017-08-14 17:02 | HHI.FF ---
Face to Face Verification Diagnosis: (1) Right thoracoscopic exploration, drainage of pleural effusion, decortication (2) Loculated empyema (3) Pleural effusion on right Home Health Nursing Order: Signs/symptoms of disease process Medication education-adverse effect Wound care and dressing changes Nursing assessment with vital signs Instructions: Thoracic Surgery patients Mandatory frequency Assess and evaluation, 2-3 x a week for one week Initial visit 1. Review post chest surgery instructions chest precautions, Activity, Elastic hose, Incision care, Driving, Incentive spirometry, Smoking, [place] , Work and other) 2. Need Betadine to paint incision 3. Medication reconciliation 4. Importance of follow up care/ check on appointments 5. Make calendar record temperature daily 6. When to call Home nurse, review instructions, phone list 7. Incentive Spirometry, demonstration Visit 1- Begin discharge instruction for patient family and/ or caregiver using teach back method- 1. Signs and symptoms of infection 2. Disease characteristics 3. Medicines and side effects 4. Foods and nutrition/ appetite 5. Infection control/ hand washing/ hygiene Visit 2- Continue teaching 1. Discharge instructions- include additional information on smoking cessation , Visit 3- Continue teaching- 1. Cough and deep breathing, incision monitoring. For any questions please call : / [employer] [facility] Cardiothoracic Surgery Incentive spirometry Q1 hr x 10, while awake, also use acapella device hourly whole Chest wall precautions: NO pushing or pulling, ( pt must use chest pillow support chest with all activities and with coughing Daily incision care: ok to shower ( 48hrs after chest tube removed) and then daily, no tub bath. Wash all incisions with liquid dial soap, clean wash cloth to each site, rinse and pat dry. Observe for any signs of infection, such as drainage which is dark yellow, cmcoy, green or foul smelling. Immediately report to the surgeon any drainage from the chest incision, or legs, and for any abnormal drainage from the chest tube sites. Notify surgeon if any temp > 101.5 degrees F. When specialty dressing removed/ or if you do not have one, continue to shower daily as above, then rinse and pat incision dry and paint with betadine daily x 5 days. Allow steri strips to fall off if you have any. Avoid lotions, creams, salves, oils, etc. for the first month For Dr. Montez patients , please obtain PA & Lat CXR in 2 weeks, results to Dr. Montez ( prescription will be given) ( ) (Tele: ) , F/U appointment: as per [place] instructions: PCP in 2 weeks, CV surgeon 2 weeks, Ticket Counter 3-4 weeks For any questions regarding incisions/ dressing / meds / post op care or above Symptoms, Monday 8am-5pm Heart & Vascular Surgery Office ( Dr. Ochoa & Dr. Montez), After Hours / Nights (5pm -8am) Weekends and Holidays Please call [facility] Cardiac [facility] Unit ([facility]) Charge Nurse I have seen patient Jameson Mcdaniel on 08/14/17. My clinical findings support the need for the requested home health care services because: Deconditioned w/ increased weakness I certify that my clinical findings support that this patient is homebound because: Post-op weakness Tyra Shipman Aug 14, 2017 17:02
[2017-08-14] MEDS ORDERED: DO NOT ADM ANY ANTICOAGULANT DRUGS PRN (17:30)
--- NOTE | 2017-08-14 17:50 | HHI.PR ---
Subjective Remarks He is Post Op right Vats thoracotomy and decortication..On IV Zosyn C/O pains along right chest . Pleural fluid has Fusobacterium. Off O2. Objective Vital Signs Date Time Temp Pulse Resp B/P (MAP) Pulse Ox O2 Delivery O2 Flow Rate FiO2 08/14/17 12:05 98.5 77 16 120/58 (78) 93 08/14/17 11:02 93 Room Air 08/14/17 08:10 92 21 08/14/17 08:05 98.8 75 16 136/69 (91) 93 08/14/17 04:00 98.8 83 18 130/62 (84) 92 08/14/17 00:00 98.3 77 17 121/58 (79) 94 08/13/17 20:00 Room Air 08/13/17 20:00 97.9 80 18 110/56 (74) 94 08/13/17 19:20 92 21 I/O 08/13/17 08/13/17 08/13/17 08/14/17 08/14/17 08/14/17 07:00 15:00 23:00 07:00 15:00 23:00 Intake Total 360 ml 930 ml 100 ml 1000 ml Output Total 650 ml Balance 360 ml 930 ml 100 ml 350 ml Intake Oral 360 ml 580 ml IV Total 350 ml 100 ml Other 1000 ml Output Urine Total 350 ml Estimated Blood Loss 300 ml # Voids 2 6 # Bowel Movements 1 Result Diagram: 08/13/17 0605 08/12/17 0813 Objective Remarks GENERAL: This is an averagely, elderly man who is in the bed, pale, in no acute distress. HEENT: Head is normocephalic. Pupils are reactive. Tongue is moist. Nasal mucosa edematous. Throat is clear. NECK: Supple, no bruits or thyroid enlargement. LUNGS: There are decreased breath sounds over the right mid and lower chest with occasional wheezes bilaterally. HEART: The heart sounds are regular S1 and S2 with no murmur. No S3 gallop. ABDOMEN: Soft and nontender. No organomegaly. Bowel sounds are active. EXTREMITIES: No lesions, no edema. NEUROLOGIC: Reflexes are 1+ with no gross motor deficits. Cranial nerves grossly intact. RECTAL: Deferred. SKIN: No lesions observed. Assessment and Plan Assessment and Plan ASSESSMENT: 1. Large loculated right pleural effusion, etiology undetermined, possible empyema and underlying pneumonia. 2. Chronic obstructive pulmonary disease. 3. Hyperlipidemia and coronary artery disease. 4. S/P Decortication right chest 5. History of hepatitis C. 6. Chronic back pain. Plan : 1. Continue antibiotics. 2. O2 2 L.PRN 3. Nebs qid , duoneb 4. IS Q2H. 5. CXR in am. 6. CBC,BMP in am Kevin Myles MD Aug 14, 2017 17:50
[2017-08-14] MEDS: MORPHINE SULFATE 30 MG/30 ML PCA IV SCH (18:29)
[2017-08-14] MEDS ORDERED: VANCOMYCIN INJ 1 GM in SODIUM CHLORIDE 0.9% INJ 250 ML IV SCH (20:00)
[2017-08-14] MEDS: DOCUSATE CALCIUM 240 MG CAP PO SCH (21:00)
[2017-08-14] MEDS: PANTOPRAZOLE SOD 40 MG DELAYED RELEASE TAB PO SCH (21:25)
[2017-08-14] MEDS: VANCOMYCIN 1,000 MG/NS 250 ML IV SCH ×2 (21:26)
[2017-08-14] MEDS: PCA - TOTAL MG MORPHINE DELIVERED PER SHIFT SCH (22:00)
[2017-08-15] VITALS (28 sets, daily range): BP systolic 101–114; BP diastolic 53–97; PULSE 48–70; RESP 17–20; TEMP 97.5–97.8; O2SAT 94–100
[2017-08-15] MEDS: MORPHINE SULFATE 30 MG/30 ML PCA IV SCH ×2 (00:40→11:30)
[2017-08-15] MEDS: RESP: ALBUTEROL 2.5 MG/3 ML NEB (SCH) NEB ×4 (03:51→21:10)
[2017-08-15] MEDS: PCA - TOTAL MG MORPHINE DELIVERED PER SHIFT SCH ×3 (05:00→22:00)
[2017-08-15] MEDS: PIPERACIL-TAZO 3.375 GM PREMIX 50 ML IV SCH (05:01)
[2017-08-15 05:25] LABS: AUTOMATED NEUTROPHIL # 17.2 TH/MM3 (1.8-7.7); BASOPHIL % 0.2 % (0.0-2.0); EOSINOPHIL % 0.1 % (0.0-4.0); HEMATOCRIT 26.2 % (39.0-51.0); HEMOGLOBIN 8.8 GM/DL (13.0-17.0); LYMPH % 4.8 % (9.0-44.0); LYMPHOCYTE # 0.9 TH/MM3 (1.0-4.8); MEAN CELL VOLUME 86.5 FL (80.0-100.0); MEAN CORPUSCULAR HEMOGLOBIN 28.9 PG (27.0-34.0); MEAN CORPUSCULAR HGB CONC 33.4 % (32.0-36.0); MEAN PLATELET VOLUME 7.3 FL (7.0-11.0); MONO % 2.7 % (0.0-8.0); MONOCYTE # 0.5 TH/MM3 (0-0.9); NEUT % 92.2 % (16.0-70.0); PLATELET COUNT 600 TH/MM3 (150-450); RED BLOOD COUNT 3.03 MIL/MM3 (4.50-5.90); RED CELL DISTRIBUTION WIDTH 14.8 % (11.6-17.2); WHITE BLOOD COUNT 18.7 TH/MM3 (4.0-11.0)
[2017-08-15 05:39] LABS: CREATININE 0.61 MG/DL (0.60-1.30)
--- NOTE | 2017-08-15 05:43 | RADRPT ---
EXAM DATE: 08/15/2017 5:26 AM EDT AGE/SEX: 66 years / Male INDICATIONS: Short of breath. CLINICAL DATA: This is the patient's subsequent encounter. Patient reports that signs and symptoms h ave been present for 3 days and indicates a pain score of 0/10. MEDICAL/SURGICAL HISTORY: Chronic obstructive pulmonary disease. Cardiovascular disease. . Hyp ercholesterolemia Coronary artery stent. COMPARISON: [facility] [place], CHEST SINGLE AP, 08/14/2017. . FINDINGS: Single AP view the chest. Right-sided chest tubes remain in place. Persistent patchy right lower lung opacity. Small right pleural effusion is now seen. Small residual right basilar pneumothorax. CONCLUSION: No significant interval change. Small right pleural effusion and small right pneumothorax. Right-side d chest tube remains in place. Electronically signed by: Chace Rome MD 08/15/2017 5:42 AM EDT
[2017-08-15] MEDS: guaiFENesin E.R. 600 MG TAB PO SCH ×2 (08:10→21:28)
[2017-08-15] MEDS: VANCOMYCIN 1,000 MG/NS 250 ML IV SCH ×2 (08:11)
[2017-08-15] MEDS: SODIUM CHLORIDE 0.9% FLUSH 10 ML FLUSH IV FLUSH SCH ×2 (08:12→21:29)
[2017-08-15] MEDS: ONDANSETRON ODT 4 MG TAB PO PRN ×3 (08:14→21:28)
--- NOTE | 2017-08-15 09:05 | HHI.PR ---
Subjective Remarks In bed says he feels tired. Doesn't want to sit in the chair but will try later today. No fever or chills. With some sob. No much chest pain , pain at the chest tube site is controlled by meds. Some nonproductive cough. Objective Vitals Vital Signs Date Time Temp Pulse Resp B/P (MAP) Pulse Ox O2 Delivery O2 Flow Rate FiO2 08/15/17 08:00 66 08/15/17 07:30 96 Nasal Cannula 2.00 08/15/17 07:30 97.5 57 19 112/57 (75) 96 08/15/17 07:15 52 08/15/17 06:00 48 08/15/17 05:00 54 08/15/17 05:00 20 08/15/17 04:00 97.8 49 20 105/56 (72) 98 08/15/17 04:00 50 08/15/17 03:50 96 Nasal Cannula 2.00 08/15/17 03:00 48 08/15/17 02:00 52 08/15/17 01:00 68 08/15/17 00:40 20 08/15/17 00:00 54 08/15/17 00:00 97.7 49 18 101/53 (69) 98 08/14/17 23:00 52 08/14/17 22:00 20 08/14/17 22:00 56 08/14/17 21:00 70 08/14/17 20:00 71 08/14/17 20:00 98.5 63 20 115/56 (75) 96 08/14/17 20:00 Nasal Cannula 2.00 08/14/17 19:00 64 08/14/17 18:29 14 08/14/17 18:00 60 08/14/17 17:30 98.7 66 14 115/64 (81) 96 08/14/17 17:00 97.9 65 16 126/63 (84) 98 Nasal Cannula 2 08/14/17 16:30 66 16 110/57 (74) 100 Nasal Cannula 2 08/14/17 16:15 66 16 110/56 (74) 100 Nasal Cannula 2 08/14/17 16:00 67 16 117/59 (78) 99 Nasal Cannula 2 08/14/17 15:45 70 16 117/62 (80) 96 Nasal Cannula 2 08/14/17 15:30 70 16 107/53 (71) 95 Nasal Cannula 2 08/14/17 15:15 70 16 127/62 (83) 95 Nasal Cannula 2 08/14/17 15:00 70 16 134/80 (98) 96 Nasal Cannula 2 08/14/17 14:45 62 16 114/58 (76) 99 Nasal Cannula 2 08/14/17 14:43 97.4 64 16 108/65 (79) 97 Nasal Cannula 6 08/14/17 12:05 98.5 77 16 120/58 (78) 93 08/14/17 11:02 93 Room Air I/O 08/14/17 08/14/17 08/14/17 08/15/17 08/15/17 08/15/17 07:00 15:00 23:00 07:00 15:00 23:00 Intake Total 100 ml 1000 ml 1000 ml 986 ml 119 ml Output Total 650 ml 690 ml 350 ml Balance 100 ml 350 ml 310 ml 636 ml 119 ml Intake Oral 240 ml IV Total 100 ml 1000 ml 746 ml 119 ml Other 1000 ml Output Urine Total 350 ml 200 ml 250 ml Chest Tube Drainage Total 490 ml 100 ml Estimated Blood Loss 300 ml Result Diagram: 08/15/17 0458 08/15/17 0458 Imaging Last Impressions Chest X-Ray 08/15/17 0500 Signed Impressions: CONCLUSION: No significant interval change. Small right pleural effusion and small right pn eumothorax. Right-sided chest tube remains in place. Thoracentesis Ultrasound 08/09/17 Signed Impressions: CONCLUSION: Uncomplicated right thoracentesis. As described above, the pleural effusion is complex containing multiple septations preventing complete evacuation. Abdomen/Pelvis CT 08/09/17 Signed Impressions: CONCLUSION: 1. Loculated pleural effusion and associated right lower lobe consolidation ar e unchanged from yesterday's exam. 2. Trace amount of free fluid within the pelvis. 3. No acute abnormality. Chest CT 08/08/17 Signed Impressions: CONCLUSION: 1. Large right effusion and consolidation. 2. Granulomatous disease is noted as above. Objective Remarks GENERAL: 66 yo male appearing older than the stated age, cachectic, chronically ill appearing however not in apparent distress. CARDIOVASCULAR: Regular rate and rhythm without murmurs, gallops, or rubs. RESPIRATORY: Right back mid lateral chest tube in place, draining serosanguineous fluid Breath sounds decrease mostly on the right. No accessory muscle use. GASTROINTESTINAL: Abdomen soft, non-tender, nondistended. MUSCULOSKELETAL: No cyanosis, or edema. BACK: Nontender without obvious deformity. No CVA tenderness. Procedures Thoracentesis s/p decortication right chest on 08/14/[address] Montez A/P Problem List: (1) Pleural effusion on right ICD Code: J90 - Pleural effusion, not elsewhere classified (2) Community acquired bacterial pneumonia ICD Code: J15.9 - Unspecified bacterial pneumonia Assessment and Plan 66-year-old man with Community-acquired bacterial pneumonia CT chest noted with finding of consolidation Currently on azithromycin and Zosyn Pneumococcal and Legionella urinary antigens negative Sputum culture negative S/p thoracentesis Fluid growing Fusobacterium and anaerobic gram positive Maintain oxygen saturation above 88%, DuoNeb and Mucinex ID consulted, appreciate recs Large right pleural effusion Status post thoracentesis pending cytology report Appreciate input from pulmonary medicine , as pleural effusion has multiple septations therefore cannot be completely aspirated percutaneously Cardiothoracic surgery plan for VATS + decortication August 14, 2017 Continue with Zosyn, Vancomycin and vancomycin Pleural fluid culture positive for anaerobic gram-positive cocci, Fusobacterium species Tumor markers negative Anorexia/weight loss Patient with complicated abdominal surgeries for unclear reasons as he is a poor historian, [facility]/pelvis noted Tumor markers including AFP, CA 19 9, CEA, LDH all negative Normochromic normocytic anemia H&H stable and continue to monitor Thrombocytosis Likely 2/2 current infectious process, continue to monitor Hyperlipidemia/coronary artery disease Continue home medications once reconciled Hepatitis C Follow-up as an outpatient Chronic pain On Suboxone at home Morphine for pain Went for VATS by Dr Montez 08/14/[address] with serosanguineous fluid. DC when improved and cleared by consultants. Discussed with the patient, nurse Jacinda Garza MD Aug 15, 2017 09:05
--- NOTE | 2017-08-15 10:13 | PD.CAR.PN ---
CVT Progress Note Subjective/Hospital Course: A 66-year-old male with history of coronary artery disease, hepatitis C, also fibromyalgia, hyperlipidemia, who presented to the emergency room with progressive shortness of breath over about a month. He has also had some fevers and chills, weight loss of 20 pounds in about [address] a [address] scan, which showed a large right pleural effusion with loculation, evidence of some consolidation, single granulomatous disease in the spleen as well as some mediastinal adenopathy. He denies having any recent travel. No tuberculosis. He has been followed by the [place], Dr. Donis of the [facility] team. He underwent thoracentesis where they removed about 120 mL of cloudy yellow fluid. 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 We were consulted for right video-assisted thoracoscopy with decortication. PAST MEDICAL HISTORY: Hypertension, hyperlipidemia, hepatitis C, fibromyalgia, chronic pain, history of prior cardiac catheterization with stenting, lumbar disk surgery, cervical disk fusion. surgery: 08/14 Right thoracoscopic exploration, drainage of pleural effusion, decortication 08/15 pain controlled with director broadcast cytology and cultures pending consult PT/ OOB leave chest tube in Objective: GENERAL: A&O x 3 SKIN: Warm and dry. incisions intact right postero lateral chest wall HEAD: Normocephalic. EYES: No scleral icterus. No injection or drainage. NECK: Supple, trachea midline. No JVD or lymphadenopathy. CARDIOVASCULAR: Regular rate and rhythm without murmurs, gallops, or rubs. RESPIRATORY: Breath sounds equal bilaterally. No accessory muscle use. coarse breath sounds right lower lobe / chest tube to wall suction/ no air leak drained 290cc/ 12 hrs GASTROINTESTINAL: Abdomen soft, non-tender, nondistended. MUSCULOSKELETAL: No cyanosis, or edema. BACK: Nontender without obvious deformity. No CVA tenderness. Vital Signs Date Time Temp Pulse Resp B/P (MAP) Pulse Ox O2 Delivery O2 Flow Rate FiO2 08/15/17 09:20 98 Nasal Cannula 2.00 08/15/17 09:00 59 08/15/17 08:00 66 08/15/17 07:30 96 Nasal Cannula 2.00 08/15/17 07:30 97.5 57 19 112/57 (75) 96 08/15/17 07:15 52 08/15/17 06:00 48 08/15/17 05:00 54 08/15/17 05:00 20 08/15/17 04:00 97.8 49 20 105/56 (72) 98 08/15/17 04:00 50 08/15/17 03:50 96 Nasal Cannula 2.00 08/15/17 03:00 48 08/15/17 02:00 52 08/15/17 01:00 68 08/15/17 00:40 20 08/15/17 00:00 54 08/15/17 00:00 97.7 49 18 101/53 (69) 98 08/14/17 23:00 52 08/14/17 22:00 20 08/14/17 22:00 56 08/14/17 21:00 70 08/14/17 20:00 71 08/14/17 20:00 98.5 63 20 115/56 (75) 96 08/14/17 20:00 Nasal Cannula 2.00 08/14/17 19:00 64 08/14/17 18:29 14 08/14/17 18:00 60 08/14/17 17:30 98.7 66 14 115/64 (81) 96 08/14/17 17:00 97.9 65 16 126/63 (84) 98 Nasal Cannula 2 08/14/17 16:30 66 16 110/57 (74) 100 Nasal Cannula 2 08/14/17 16:15 66 16 110/56 (74) 100 Nasal Cannula 2 08/14/17 16:00 67 16 117/59 (78) 99 Nasal Cannula 2 08/14/17 15:45 70 16 117/62 (80) 96 Nasal Cannula 2 08/14/17 15:30 70 16 107/53 (71) 95 Nasal Cannula 2 08/14/17 15:15 70 16 127/62 (83) 95 Nasal Cannula 2 08/14/17 15:00 70 16 134/80 (98) 96 Nasal Cannula 2 08/14/17 14:45 62 16 114/58 (76) 99 Nasal Cannula 2 08/14/17 14:43 97.4 64 16 108/65 (79) 97 Nasal Cannula 6 08/14/17 12:05 98.5 77 16 120/58 (78) 93 08/14/17 11:02 93 Room Air Labs: Laboratory Tests Test 08/15/17 04:58 White Blood Count 18.7 TH/MM3 (4.0-11.0) Red Blood Count 3.03 MIL/MM3 (4.50-5.90) Hemoglobin 8.8 GM/DL (13.0-17.0) Hematocrit 26.2 % (39.0-51.0) Mean Corpuscular Volume 86.5 FL (80.0-100.0) Mean Corpuscular Hemoglobin 28.9 PG (27.0-34.0) Mean Corpuscular Hemoglobin Concent 33.4 % (32.0-36.0) Red Cell Distribution Width 14.8 % (11.6-17.2) Platelet Count 600 TH/MM3 (150-450) Mean Platelet Volume 7.3 FL (7.0-11.0) Neutrophils (%) (Auto) 92.2 % (16.0-70.0) Lymphocytes (%) (Auto) 4.8 % (9.0-44.0) Monocytes (%) (Auto) 2.7 % (0.0-8.0) Eosinophils (%) (Auto) 0.1 % (0.0-4.0) Basophils (%) (Auto) 0.2 % (0.0-2.0) Neutrophils # (Auto) 17.2 TH/MM3 (1.8-7.7) Lymphocytes # (Auto) 0.9 TH/MM3 (1.0-4.8) Monocytes # (Auto) 0.5 TH/MM3 (0-0.9) Eosinophils # (Auto) 0.0 TH/MM3 (0-0.4) Basophils # (Auto) 0.0 TH/MM3 (0-0.2) CBC Comment DIFF FINAL Differential Comment Blood Urea Nitrogen 7 MG/DL (7-18) Creatinine 0.61 MG/DL (0.60-1.30) Random Glucose 149 MG/DL (74-106) Calcium Level 8.0 MG/DL (8.5-10.1) Sodium Level 136 MEQ/L (136-145) Potassium Level 3.6 MEQ/L (3.5-5.1) Chloride Level 101 MEQ/L (98-107) Carbon Dioxide Level 26.0 MEQ/L (21.0-32.0) Anion Gap 9 MEQ/L (5-15) Estimat Glomerular Filtration Rate 133 ML/MIN (>89) Result Diagram: 08/15/17 0458 08/15/17 0458 Telemetry: NSR (1) Pleural effusion (2) Loculated empyema (3) Right thoracoscopic exploration, drainage of pleural effusion, decortication Plan: await cultures and cytology ID consulted leave chest tube in CristianOB Tyra Shipman Aug 15, 2017 10:13
[2017-08-15] MEDS: HEPARIN SODIUM - SQ 10,000 UNITS/ML VIAL SQ SCH ×2 (11:23→23:00)
--- NOTE | 2017-08-15 11:46 | MB ---
cc: Ruddy Cast MD DATE: 08/15/2017 REQUESTING PHYSICIAN: Dr. Garza REASON FOR CONSULTATION: Recommendation, patient with sepsis. Status post thoracentesis. HISTORY OF PRESENT ILLNESS: This is a 66-year-old white male who presented to the emergency department on 08/08/2017 with weakness and abnormal lab work. The patient had lab work at the [facility] and his white count was elevated at 29,000. He was complaining of worsening shortness of breath over the past 6 weeks. The patient underwent evaluation and was found to have a moderate sized right pleural effusion along with consolidation and the white cell count in the emergency department was 29.5. He underwent thoracentesis and the pleural fluid culture from 08/09/2017 Fusobacterium species and anaerobic gram-positive cocci. Sputum culture had normal christin. The patient underwent video-assisted thoracoscopy and decortication on the right lung on 08/14/2017. New cultures were taken. The pleural fluid revealed 41,750 white cells with 99% neutrophils and a glucose level less than 1. His white blood cell count remains elevated. The patient reports to me that he moved from [place] approximately 7 weeks ago and approximately a week and a half after moving he started to experience some pain in his right lateral chest radiating up to his right shoulder area. He tells me that he moved everything in the house by himself when he moved. He continued to have the chest pain. He reports also that he was developing poor appetite and he had some green mucousy sputum production. Approximately 2 days before he was admitted, he reports that he was sleeping in his recliner and his and grandson mentioned to him that he had slept for about 36 hours, but he does not recall the actual length of time that he was asleep. He denies passing out. He had a temperature of 100.5 degrees on 08/11/2017. He does not recall having fevers before admission. The patient has spent most of his time indoors and does not do outdoor activities such as gardening. He has a history of seizures which were attributable to baclofen that was stopped earlier this year. He has not had any seizures over the past few months since the baclofen was discontinued. The patient was afebrile on admission. PAST MEDICAL HISTORY: 1. Coronary artery disease. 2. Hepatitis C. 3. Fibromyalgia. 4. History of neck fusion. 5. History of low back surgery. 6. Vagotomy. 7. History of cardiac catheterization with stent placement x 1. 8. Unspecified gastric surgery. 9. 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 ALLERGIES: BACLOFEN. MEDICATIONS: 1. Vancomycin. 2. Surfak. 3. Protonix. 4. Albuterol nebulizers. 5. Morphine sulfate p.r.n. 6. Piperacillin/tazobactam. 7. Mucinex. 8. Subcutaneous heparin. SOCIAL HISTORY: The patient smokes a pack of cigarettes a day. Denies alcohol. Denies illicit drugs. He resides with his and grandson. FAMILY HISTORY: Mother has dementia and diabetes mellitus type 2. The patient's father of a myocardial infarction at age 59. REVIEW OF SYSTEMS: CONSTITUTIONAL: Denies fever or chills. HEAD, EARS, EYES, NOSE AND THROAT: Denies headache, denies visual blurring or diplopia. Denies difficulty swallowing. Denies soreness of the throat. CARDIOVASCULAR: Denies palpitation. RESPIRATORY: Positive for shortness of breath and occasional cough. GASTROINTESTINAL: Denies nausea, vomiting, abdominal pain or diarrhea. MUSCULOSKELETAL: Positive for lateral right chest pain. ENDOCRINE: Denies polyuria or polydipsia. INTEGUMENTARY: Denies skin rash or itching. NEUROLOGIC: Denies problems with coordination. PSYCHIATRIC: Denies mood changes. PHYSICAL EXAMINATION: GENERAL: This is a slender male who is in no acute distress. He is awake and alert and oriented. VITAL SIGNS: Temperature 97.5, BP 112/57, respirations 19, heart rate 70. HEENT: Head atraumatic. Pupils reactive to light without icterus. No conjunctival erythema. Oropharynx, moist mucosa. No thrush. The patient wears partial dentures. NECK: Supple without adenopathy. LUNGS: Rhonchi at the right lung base. HEART: Regular S1 and S2, with distant sounds. No audible murmur. ABDOMEN: Bowel sounds present, soft, no tenderness appreciated. RECTAL: Not performed. EXTREMITIES: No clubbing, cyanosis or edema. SKIN: No diffuse rash. NEUROLOGIC: No gross focal finding. PSYCHIATRIC: The patient is calm and cooperative and affect appears normal. LABORATORY DATA: WBC 18.7, platelets 600, 92% neutrophils, 4% lymphocytes, hemoglobin 8.8. Creatinine 0.61, BUN 7, sodium 136. Estimated GFR 149, AST 37, ALT 21, alkaline phosphatase 120, albumin 1.6. IMPRESSION: 1. Empyema of the right lung. Previous culture on 08/09/2017 revealed Fusobacterium species and anaerobic gram-positive cocci. The patient is status post decortication by video-assisted thoracoscopy. 2. Leukocytosis. RECOMMENDATIONS: 1. Discontinue piperacillin/tazobactam. 2. Begin Unasyn. 3. Monitor the new pleural fluid culture. 4. Monitor white blood cell count. 5. Monitor clinical status. It is anticipated that the patient will require outpatient IV antibiotics on discharge. Thank you for this consultation. The patient's progress will be monitored and further recommendations will be given upon followup and based on new cultures. Ruddy Cast MD FFD/DL , 11:06 AM , 11:45 AM
[2017-08-15] MEDS: AMPICILLIN-SULBACTAM INJ 3 GM in SODIUM CHLORIDE 0.9% INJ 100 ML IV SCH ×3 (12:11→23:49)
--- NOTE | 2017-08-15 17:26 | HHI.PR ---
Subjective Remarks He is Post Op right Vats thoracotomy and decortication..On IV Unasyn C/O pains along right chest . Seems better today.No fever. Pleural fluid has Fusobacterium. Off O2. Objective Vital Signs Date Time Temp Pulse Resp B/P (MAP) Pulse Ox O2 Delivery O2 Flow Rate FiO2 08/15/17 17:00 60 08/15/17 16:00 50 08/15/17 15:59 94 Nasal Cannula 2.00 08/15/17 15:00 97.5 57 18 114/59 (77) 97 08/15/17 15:00 97 Nasal Cannula 2.00 08/15/17 15:00 50 08/15/17 14:00 61 08/15/17 14:00 16 08/15/17 13:00 54 08/15/17 12:00 60 08/15/17 11:55 19 08/15/17 11:30 19 08/15/17 11:00 99 Nasal Cannula 2.00 08/15/17 11:00 97.5 60 20 113/54 (73) 99 08/15/17 11:00 53 08/15/17 10:00 70 08/15/17 09:20 98 Nasal Cannula 2.00 08/15/17 09:00 59 08/15/17 08:00 66 08/15/17 07:30 96 Nasal Cannula 2.00 08/15/17 07:30 97.5 57 19 112/57 (75) 96 08/15/17 07:15 52 08/15/17 06:00 48 08/15/17 05:00 54 08/15/17 05:00 20 08/15/17 04:00 97.8 49 20 105/56 (72) 98 08/15/17 04:00 50 08/15/17 03:50 96 Nasal Cannula 2.00 08/15/17 03:00 48 08/15/17 02:00 52 08/15/17 01:00 68 08/15/17 00:40 20 08/15/17 00:00 54 08/15/17 00:00 97.7 49 18 101/53 (69) 98 08/14/17 23:00 52 08/14/17 22:00 20 08/14/17 22:00 56 08/14/17 21:00 70 08/14/17 20:00 71 08/14/17 20:00 98.5 63 20 115/56 (75) 96 08/14/17 20:00 Nasal Cannula 2.00 08/14/17 19:00 64 08/14/17 18:29 14 08/14/17 18:00 60 08/14/17 17:30 98.7 66 14 115/64 (81) 96 I/O 08/14/17 08/14/17 08/14/17 08/15/17 08/15/17 08/15/17 07:00 15:00 23:00 07:00 15:00 23:00 Intake Total 100 ml 1000 ml 1000 ml 986 ml 369 ml 280 ml Output Total 650 ml 690 ml 350 ml 622 ml Balance 100 ml 350 ml 310 ml 636 ml 369 ml -342 ml Intake Oral 240 ml IV Total 100 ml 1000 ml 746 ml 369 ml 280 ml Other 1000 ml Output Urine Total 350 ml 200 ml 250 ml 500 ml Chest Tube Drainage Total 490 ml 100 ml 122 ml Estimated Blood Loss 300 ml Result Diagram: 08/15/1745708/15/17457 Objective Remarks GENERAL: This is an averagely, elderly man who is in the bed, pale, in no acute distress. HEENT: Head is normocephalic. Pupils are reactive. Tongue is moist. Nasal mucosa edematous. Throat is clear. NECK: Supple, no bruits or thyroid enlargement. LUNGS: There are decreased breath sounds over the right mid and lower chest with wheezes bilaterally. HEART: The heart sounds are regular S1 and S2 with no murmur. No S3 gallop. ABDOMEN: Soft and nontender. No organomegaly. Bowel sounds are active. EXTREMITIES: No lesions, no edema. NEUROLOGIC: Reflexes are 1+ with no gross motor deficits. Cranial nerves grossly intact. RECTAL: Deferred. SKIN: No lesions observed. Assessment and Plan Assessment and Plan ASSESSMENT: 1. Large loculated right pleural effusion, etiology undetermined, possible empyema and underlying pneumonia. 2. Chronic obstructive pulmonary disease. 3. Hyperlipidemia and coronary artery disease. 4. S/P Decortication right chest 5. History of hepatitis C. 6. Chronic back pain. Plan : 1. Continue antibiotics.per ID 2. O2 2 L.PRN 3. Nebs qid , duoneb 4. IS Q2H. bedside 5. CXR, CBC,BMP in am. 6. Symbicort 160/4.5 mcg , 2puffs BID Kevin Myles MD Aug 15, 2017 17:26
[2017-08-15] MEDS: PANTOPRAZOLE SOD 40 MG DELAYED RELEASE TAB PO SCH (21:00)
[2017-08-15] MEDS: DOCUSATE CALCIUM 240 MG CAP PO SCH ×2 (21:00→21:28)
[2017-08-16] VITALS (27 sets, daily range): BP systolic 115–150; BP diastolic 60–71; PULSE 47–89; RESP 16–18; TEMP 97.7–98; O2SAT 93–98
[2017-08-16] MEDS: MORPHINE SULFATE 30 MG/30 ML PCA IV SCH ×2 (03:35→22:18)
[2017-08-16 05:37] LABS: AUTOMATED NEUTROPHIL # 10.1 TH/MM3 (1.8-7.7); BASOPHIL # 0.1 TH/MM3 (0-0.2); BASOPHIL % 0.6 % (0.0-2.0); EOSINOPHIL # 0.5 TH/MM3 (0-0.4); EOSINOPHIL % 3.7 % (0.0-4.0); HEMATOCRIT 25.5 % (39.0-51.0); HEMOGLOBIN 8.6 GM/DL (13.0-17.0); LYMPHOCYTE # 1.1 TH/MM3 (1.0-4.8); MEAN CELL VOLUME 87.4 FL (80.0-100.0); MEAN CORPUSCULAR HEMOGLOBIN 29.5 PG (27.0-34.0); MEAN CORPUSCULAR HGB CONC 33.7 % (32.0-36.0); MEAN PLATELET VOLUME 7.4 FL (7.0-11.0); MONO % 5.8 % (0.0-8.0); MONOCYTE # 0.7 TH/MM3 (0-0.9); NEUT % 80.9 % (16.0-70.0); PLATELET COUNT 572 TH/MM3 (150-450); RED BLOOD COUNT 2.92 MIL/MM3 (4.50-5.90); WHITE BLOOD COUNT 12.5 TH/MM3 (4.0-11.0)
[2017-08-16 05:50] LABS: BICARBONATE 27.1 MEQ/L (21.0-32.0); CALCIUM 7.8 MG/DL (8.5-10.1); CREATININE 0.58 MG/DL (0.60-1.30); MAGNESIUM 2.3 MG/DL (1.5-2.5)
[2017-08-16] MEDS: AMPICILLIN-SULBACTAM INJ 3 GM in SODIUM CHLORIDE 0.9% INJ 100 ML IV SCH ×3 (05:58→17:02)
[2017-08-16] MEDS: PCA - TOTAL MG MORPHINE DELIVERED PER SHIFT SCH ×3 (06:00→22:00)
[2017-08-16] MEDS: RESP: ALBUTEROL 2.5 MG/3 ML NEB (SCH) NEB (07:38)
--- NOTE | 2017-08-16 08:46 | HHI.PR ---
Subjective Remarks The patient is in the chair at this time he says he wants to. He is frustrated with staying in the hospital. Says he feels he is seen the present. Feels depressed. Seen by psychiatry discussed with Dr. Crenshaw. There is no chest pain at this time. Feels some shortness of breath however he is saturating well while on room air. Chest tubes improved placed still with drainage. No nausea vomiting no diarrhea or constipation he is eating fairly well. Objective Vitals Vital Signs Date Time Temp Pulse Resp B/P (MAP) Pulse Ox O2 Delivery O2 Flow Rate FiO2 08/16/17 08:00 89 08/16/17 07:48 93 08/16/17 07:00 59 08/16/17 07:00 97.7 49 16 148/67 (94) 96 08/16/17 06:12 49 08/16/17 06:00 19 08/16/17 05:50 57 08/16/17 04:15 47 08/16/17 03:42 98.0 47 18 115/60 (78) 96 08/16/17 03:42 73 08/16/17 03:35 19 08/16/17 02:46 50 08/16/17 01:42 74 08/16/17 00:54 51 08/15/17 23:15 98 Nasal Cannula 08/15/17 23:15 97.7 53 17 113/59 (77) 98 08/15/17 23:15 52 08/15/17 22:08 50 08/15/17 22:00 20 08/15/17 21:30 51 08/15/17 20:01 50 08/15/17 19:20 100 Nasal Cannula 2.00 08/15/17 19:20 97.7 53 18 104/97 (99) 100 08/15/17 19:20 56 08/15/17 18:00 55 08/15/17 17:00 60 08/15/17 16:00 50 08/15/17 15:59 94 Nasal Cannula 2.00 08/15/17 15:00 97.5 57 18 114/59 (77) 97 08/15/17 15:00 97 Nasal Cannula 2.00 08/15/17 15:00 50 08/15/17 14:00 61 08/15/17 14:00 16 08/15/17 13:00 54 6/12/18 12:00 60 08/15/17 11:55 19 08/15/17 11:30 19 08/15/17 11:00 99 Nasal Cannula 2.00 08/15/17 11:00 97.5 60 20 113/54 (73) 99 08/15/17 11:00 53 08/15/17 10:00 70 08/15/17 09:20 98 Nasal Cannula 2.00 08/15/17 09:00 59 I/O 08/15/17 08/15/17 08/15/17 08/16/17 08/16/17 08/16/17 07:00 15:00 23:00 07:00 15:00 23:00 Intake Total 986 ml 369 ml 280 ml 600 ml Output Total 350 ml 622 ml 505 ml Balance 636 ml 369 ml -342 ml 95 ml Intake Oral 240 ml 600 ml IV Total 746 ml 369 ml 280 ml Output Urine Total 250 ml 500 ml 325 ml Chest Tube Drainage Total 100 ml 122 ml 180 ml # Bowel Movements 0 Result Diagram: 08/16/17 0501 08/16/17 0501 Imaging Last Impressions Chest X-Ray 08/15/17 0500 Signed Impressions: CONCLUSION: No significant interval change. Small right pleural effusion and small right pn eumothorax. Right-sided chest tube remains in place. Thoracentesis Ultrasound 08/09/17 Signed Impressions: CONCLUSION: Uncomplicated right thoracentesis. As described above, the pleural effusion is complex containing multiple septations preventing complete evacuation. Abdomen/Pelvis CT 08/09/17 Signed Impressions: CONCLUSION: 1. Loculated pleural effusion and associated right lower lobe consolidation ar e unchanged from yesterday's exam. 2. Trace amount of free fluid within the pelvis. 3. No acute abnormality. Chest CT 08/08/17 Signed Impressions: CONCLUSION: 1. Large right effusion and consolidation. 2. Granulomatous disease is noted as above. Objective Remarks GENERAL: 66 yo male appearing older than the stated age, cachectic, chronically ill appearing however not in apparent distress. He appears sad and frustrated. CARDIOVASCULAR: Regular rate and rhythm without murmurs, gallops, or rubs. RESPIRATORY: Right back mid lateral chest tube in place, draining serosanguineous fluid Breath sounds decrease mostly on the right. No accessory muscle use. GASTROINTESTINAL: Abdomen soft, non-tender, nondistended. MUSCULOSKELETAL: No cyanosis, or edema. BACK: Nontender without obvious deformity. No CVA tenderness. Procedures Thoracentesis s/p decortication right chest on 08/14/[address] Montez A/P Problem List: (1) Pleural effusion on right ICD Code: J90 - Pleural effusion, not elsewhere classified (2) Community acquired bacterial pneumonia ICD Code: J15.9 - Unspecified bacterial pneumonia Assessment and Plan 66-year-old man with Community-acquired bacterial pneumonia CT chest noted with finding of consolidation Currently on azithromycin and Zosyn Pneumococcal and Legionella urinary antigens negative Sputum culture negative S/p thoracentesis Fluid growing Fusobacterium and anaerobic gram positive Maintain oxygen saturation above 88%, DuoNeb and Mucinex ID consulted, appreciate recs Large right pleural effusion Status post thoracentesis pending cytology report Appreciate input from pulmonary medicine , as pleural effusion has multiple septations therefore cannot be completely aspirated percutaneously Cardiothoracic surgery plan for VATS + decortication August 14, 2017 Continue with Zosyn, Vancomycin and vancomycin Pleural fluid culture positive for anaerobic gram-positive cocci, Fusobacterium species Tumor markers negative Anorexia/weight loss Patient with complicated abdominal surgeries for unclear reasons as he is a poor historian, [facility]/pelvis noted Tumor markers including AFP, CA 19 9, CEA, LDH all negative Normochromic normocytic anemia H&H stable and continue to monitor Thrombocytosis Likely 2/2 current infectious process, continue to monitor Hyperlipidemia/coronary artery disease Continue home medications once reconciled Hepatitis C Follow-up as an outpatient Chronic pain On Suboxone at home Morphine for pain Depression /anxiety: Consult psychiatry. Start Ativan 0.5 mg po q8hrs prn. Dicussed with Dr Crenshaw. Went for VATS by Dr Montez 08/14/[address] with serosanguineous fluid. Also consult palliative care for goals of care DC when improved and cleared by consultants. Discussed with the patient, nurse Jacinda Graza MD Aug 16, 2017 08:46
[2017-08-16] MEDS: guaiFENesin E.R. 600 MG TAB PO SCH ×2 (08:56→22:13)
[2017-08-16] MEDS: SODIUM CHLORIDE 0.9% FLUSH 10 ML FLUSH IV FLUSH SCH ×2 (08:56→22:12)
[2017-08-16] MEDS ORDERED: GLUCAGON 1 MG/ML VIAL OTHER PRN (10:15)
[2017-08-16] MEDS ORDERED: DEXTROSE 50% IN WATER 50 ML VIAL(D50) IV PUSH PRN (10:15)
[2017-08-16] MEDS: POLYETHYLENE GLYCOL 17 GM PKG PO SCH (10:30)
[2017-08-16] MEDS ORDERED: POTASSIUM CHLORIDE 10 MEQ CONTROLLED RELEASE TAB PO ONE (10:30)
[2017-08-16] MEDS: DOCUSATE SODIUM 100 MG CAP PO SCH ×2 (10:52→21:00)
[2017-08-16] MEDS: HEPARIN SODIUM - SQ 10,000 UNITS/ML VIAL SQ SCH ×2 (10:55→22:14)
--- NOTE | 2017-08-16 11:59 | HHI.IDPN ---
Note Infectious Disease Note Patient feels very anxious. Notes mild right chest pain. Pleural fluid culture pending. White blood cell count lower. Afebrile. 66-year-old white male who presented to the emergency department on 08/08/2017 with weakness and abnormal lab work. The patient had lab work at the [facility] and his white count was elevated at 29,000. He was complaining of worsening shortness of breath over the past 6 weeks. The patient was afebrile on admission. PAST MEDICAL HISTORY: 1. Coronary artery disease. 2. Hepatitis C. 3. Fibromyalgia. 4. History of neck fusion. 5. History of low back surgery. 6. Vagotomy. 7. History of cardiac catheterization with stent placement x 1. 8. Unspecified gastric surgery. 9. 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 ALLERGIES: BACLOFEN. MEDICATIONS: Current Medications Medications (Trade) Dose Ordered Sig/Alejandro Route PRN Reason Start Time Stop Time Status Last Admin Dose Admin Albuterol/ Ipratropium (Duoneb Neb) 1 ampule Q4HR NEB PRN NEB SOB/Wheezing 08/08/17 22:30 08/14/17 04:03 Acetaminophen (Tylenol) 650 mg Q4H PRN PO TEMP > 100.4 08/08/17 22:30 Ondansetron HCl (Zofran Odt) 4 mg Q6H PRN PO NAUSEA/VOMITING 08/08/17 22:45 08/15/17 21:28 Heparin Sodium (Porcine) (Heparin Inj) 5,000 units Q12H SQ 08/08/17 23:00 08/16/17 10:55 Naloxone HCl (Narcan Inj) 0.4 mg UNSCH PRN IV PUSH SEE LABEL COMMENTS 08/08/17 22:30 Bisacodyl (Dulcolax Supp) 10 mg DAILY PRN RECTAL SEVERE CONSITIPATION 08/08/17 22:30 Lactulose (Lactulose Liq) 30 ml DAILY PRN PO SEVERE CONSITIPATION 08/08/17 22:30 Guaifenesin (Mucinex Er) 600 mg BID PO 08/09/17 21:00 08/16/17 08:56 Cefazolin Sodium 500 mg/Sodium Chloride 505 ml @ 0 mls/hr STRESS ANALYST IRRIGATION 08/11/17 14:15 08/18/17 14:14 Cefazolin Sodium/ Dextrose 50 ml @ 150 mls/hr STRESS ANALYST IV 08/11/17 14:15 08/18/17 14:14 Lactated Ringer's 1,000 ml @ 30 mls/hr Q24H PRN IV SEE LABEL COMMENTS 08/14/17 04:30 08/17/17 04:29 08/14/17 17:00 Sodium Chloride 500 ml @ 30 mls/hr [id number] PRN IV SEE LABEL COMMENTS 08/14/17 04:30 08/17/17 04:29 08/15/17 08:15 Metoprolol Tartrate (Lopressor) 25 mg STRESS ANALYST PRN PO SEE LABEL COMMENTS 08/14/17 04:30 08/17/17 04:29 Povidone Iodine (Betadine 5% Antisepsis Kit) 1 applic STRESS ANALYST PRN EACH NARE SEE LABEL COMMENTS 08/14/17 04:30 08/17/17 04:29 Chlorhexidine Gluconate (Chlorhexidine 2% Cloth) 3 pack STRESS ANALYST PRN TOPICAL SEE LABEL COMMENTS 08/14/17 04:30 08/17/17 04:29 Albuterol Sulfate (Albuterol Neb) 2.5 mg Q6HR NEB NEB 08/14/17 16:00 08/16/17 07:38 Albuterol Sulfate (Albuterol Neb) 2.5 mg Q2HR NEB PRN NEB WHEEZING 08/14/17 14:30 Sodium Chloride (NS Flush) 2 ml BID IV FLUSH 08/14/17 21:00 08/16/17 08:56 Sodium Chloride (NS Flush) 2 ml UNSCH PRN IV FLUSH FLUSH AFTER USING IV ACCESS 08/14/17 14:30 Pantoprazole Sodium (Protonix) 40 mg HS PO 08/14/17 21:00 08/14/17 21:25 Magnesium Hydroxide (Milk Of Magnesia Liq) 30 ml DAILY PRN PO MILD CONSTIPATION 08/14/17 14:30 08/16/17 10:52 Acetaminophen (Tylenol) 650 mg Q4H PRN PO TEMPERATURE > 101 F 08/14/17 14:30 Naloxone HCl (Narcan Inj) 0.4 mg UNSCH PRN IV PUSH RESPIRATORY RATE LESS THAN 10 08/14/17 14:30 Morphine Sulfate (Morphine 1 Mg/ ml ARCHITECT MARINE) 30 mg UNSCH IV 08/14/17 14:30 08/16/17 03:35 ARCHITECT MARINE Dosage Infused (Pha) 1 Q8HR .XX 08/14/17 22:00 08/16/17 06:00 Ampicillin Sodium/ Sulbactam Sodium 3 gm/Sodium Chloride 100 ml @ 200 mls/hr Q6H IV 08/15/17 12:00 08/16/17 05:58 Dextrose (D50w (Vial) Inj) 50 ml UNSCH PRN IV PUSH HYPOGLYCEMIA-SEE COMMENTS 08/16/17 10:15 Glucagon (Glucagon Inj) 1 mg UNSCH PRN OTHER HYPOGLYCEMIA-SEE COMMENTS 08/16/17 10:15 Docusate Sodium (Colace) 100 mg BID PO 08/16/17 10:30 08/16/17 10:52 Polyethylene Glycol (Miralax) 17 gm DAILY PO 08/16/17 10:30 SOCIAL HISTORY: The patient smokes a pack of cigarettes a day. Denies alcohol. Denies illicit drugs. He resides with his and grandson. PHYSICAL EXAMINATION: GENERAL: Alert. HEENT: Head atraumatic. Pupils reactive to light without icterus. No conjunctival erythema. Oropharynx, moist mucosa. NECK: Supple without adenopathy. LUNGS: Rhonchi at the right lung base. HEART: Regular S1 and S2, with distant sounds. No audible murmur. ABDOMEN: Bowel sounds present, soft, no tenderness. EXTREMITIES: No clubbing, cyanosis or edema. SKIN: No diffuse rash. NEUROLOGIC: No gross focal finding. PSYCHIATRIC: Calm but anxious and tearful. IMPRESSION: 1. Empyema of the right lung. Previous culture on 08/09/2017 revealed Fusobacterium species and anaerobic gram-positive cocci. The patient is status post decortication by video-assisted thoracoscopy. New culture pending. 2. Leukocytosis. RECOMMENDATIONS: 1. Continue Unasyn. 2. Monitor the new pleural fluid culture. 3. Monitor white blood cell count. 4. Monitor clinical status. Discussed plan with patient. Anticipate 6 weeks of IV antibiotics. Psychiatry to address mood issues. Discussed with Dr Garza. Ruddy Cast MD Aug 16, 2017 11:59
--- NOTE | 2017-08-16 13:37 | PD.PSY.CON ---
Provisional Diagnosis Admission Date Aug 08, 2017 at 20:10 [place] I. Adjustment disorder with depressed mood and anxiety [place] II. Deferred History of Present Illness Service Psychiatry Consult Requested By Medicine Reason for Consult Symptoms of depression and anxiety Primary Care Physician [facility] HPI The patient is 66-year-old man, domiciled his in [facility], he has 2 kids, he is a , 100% service-connected, with psychiatric history of depression and PTSD, 1 previous psychiatric hospitalization 20 years ago, he is noted medications, he denies previous suicidal attempts, with an medical history of hepatitis C, chronic pain, hypertension, fibromyalgia, who was hospitalized due to Community-acquired bacterial pneumonia. Large right pleural effusion. Anorexia/weight loss, Normochromic normocytic anemia, Thrombocytosis. Consulted to psychiatry due to symptomatology of depression and anxiety. Psychiatric evaluation the patient is calm, cooperative, the patient is accompanied by his . The patient reports that he has been feeling quite depressed and anxious in the last days, he states that he feels abandoned by medical team, he feels that is very difficult to communicate with the team, "I am frustrated, I do know what is going on, I feel that I am going to here in this detention". He reports that he has been feeling quite worthless, helpless and hopeless, even though he denies suicidal ideation, homicidal ideation. He denies visual and auditory hallucinations. He reports having periods of confusion, but at this moment the patient is fully oriented 3, without attention deficit, without fluctuation of consciousness. The patient also reports having difficulty sleeping, feeling very anxious during the day, and also with decreased appetite. The patient expressed that he is not used to lose the control of himself completely "and others taken decisions for me". He requests to be discharged and continue his IV antibiotic as an outpatient. He denies the use of illegal drugs or alcohol. I have communicated directly with Dr. Garza was plainly that the patient has being quite catastrophic, that his medical situation has been explained in multiple locations to him but the patient seems to not understand and continue to be fixed and being discharged and in denial. Review of Systems Constitutional: DENIES: Diaphoretic episodes, Fatigue, Fever, Weight gain, Weight loss, Chills, Dizziness, Change in appetite, Night Sweats Endocrine: DENIES: Heat/cold intolerance, Polydipsia, Polyuria, Polyphagia Eyes: DENIES: Blurred vision, Diplopia, Eye inflammation, Eye pain, Vision loss , Photosensitivity, Double Vision Ears, nose, mouth, throat: DENIES: Tinnitus, Hearing loss, Vertigo, Nasal discharge, Oral lesions, Throat pain, Hoarseness, Ear Pain, Running Nose, Epistaxis, Sinus Pain, Toothache, Odynophagia Respiratory: DENIES: Apneas, Cough, Snoring, Wheezing, Hemoptysis, Sputum production, Shortness of breath Cardiovascular: DENIES: Chest pain, Palpitations, Syncope, Dyspnea on Exertion , PND, Lower Extremity Edema, Orthopnea, Claudication Gastrointestinal: DENIES: Abdominal pain, Black stools, Bloody stools, Constipation, Diarrhea, Nausea, Vomiting, Difficulty Swallowing, Anorexia Genitourinary: DENIES: Sexual dysfunction, Urinary frequency, Urinary incontinence, Urgency, Hematuria, Dysuria, Nocturia, Penile Discharge, Testicular Pain, Testicular Swelling Musculoskeletal: DENIES: Joint pain, Muscle aches, Stiffness, Joint Swelling, Back pain, Neck pain Integumentary: DENIES: Abnormal pigmentation, Nail changes, Pruritus, Rash Hematologic/lymphatic: DENIES: Bruising, Lymphadenopathy Immunologic/allergic: DENIES: Eczema, Urticaria Neurologic: DENIES: Abnormal gait, Headache, Localized weakness, Paresthesias, Seizures, Speech Problems, Tremor, Poor Balance Psychiatric: COMPLAINS OF: Anxiety, Depression, DENIES: Confusion, Mood changes , Hallucinations, Agitation, Suicidal Ideation, Homicidal Ideation, Delusions Past Family Social History Coded Allergies: baclofen (Verified Allergy, Unknown, Seizures, 08/14/17) Reported Medications Omeprazole (Omeprazole) 20 Mg Cap, 20 MG PO BID 08/08/17 Buprenorphine-Naloxone Sublingual Film (Suboxone Sublingual Film) 8-2 Mg Film, 1 FILM SL BID, FILM Unique ID number required: 08/08/17 Current Medications Medications (Trade) Dose Ordered Sig/Alejandro Route Start Time Stop Time Status Last Admin (Duoneb Neb) 1 ampule Q4HR NEB PRN NEB 08/08/17 22:30 08/14/17 04:03 (Tylenol) 650 mg Q4H PRN PO 08/08/17 22:30 (Zofran Odt) 4 mg Q6H PRN PO 08/08/17 22:45 08/15/17 21:28 (Heparin Inj) 5,000 units Q12H SQ 08/08/17 23:00 08/16/17 10:55 (Narcan Inj) 0.4 mg UNSCH PRN IV PUSH 08/08/17 22:30 (Dulcolax Supp) 10 mg DAILY PRN RECTAL 08/08/17 22:30 (Lactulose Liq) 30 ml DAILY PRN PO 08/08/17 22:30 (Mucinex Er) 600 mg BID PO 08/09/17 21:00 08/16/17 08:56 Cefazolin Sodium 500 mg/Sodium Chloride 505 ml @ 0 mls/hr PART TIME RECEPTIONIST IRRIGATION 08/11/17 14:15 08/18/17 14:14 Cefazolin Sodium/ Dextrose 50 ml @ 150 mls/hr PART TIME RECEPTIONIST IV 08/11/17 14:15 08/18/17 14:14 Lactated Ringer's 1,000 ml @ 30 mls/hr Q24H PRN IV 08/14/17 04:30 08/17/17 04:29 08/14/17 17:00 Sodium Chloride 500 ml @ 30 mls/hr [id number] PRN IV 08/14/17 04:30 08/17/17 04:29 08/15/17 08:15 (Lopressor) 25 mg PART TIME RECEPTIONIST PRN PO 08/14/17 04:30 08/17/17 04:29 (Betadine 5% Antisepsis Kit) 1 applic PART TIME RECEPTIONIST PRN EACH NARE 08/14/17 04:30 08/17/17 04:29 (Chlorhexidine 2% Cloth) 3 pack PART TIME RECEPTIONIST PRN TOPICAL 08/14/17 04:30 08/17/17 04:29 (Albuterol Neb) 2.5 mg Q6HR NEB NEB 08/14/17 16:00 08/16/17 07:38 (Albuterol Neb) 2.5 mg Q2HR NEB PRN NEB 08/14/17 14:30 (NS Flush) 2 ml BID IV FLUSH 08/14/17 21:00 08/16/17 08:56 (NS Flush) 2 ml UNSCH PRN IV FLUSH 08/14/17 14:30 (Protonix) 40 mg HS PO 08/14/17 21:00 08/14/17 21:25 (Milk Of Magnesia Liq) 30 ml DAILY PRN PO 08/14/17 14:30 08/16/17 10:52 (Tylenol) 650 mg Q4H PRN PO 08/14/17 14:30 (Narcan Inj) 0.4 mg UNSCH PRN IV PUSH 08/14/17 14:30 (Morphine 1 Mg/ ml RECENTERER) 30 mg UNSCH IV 08/14/17 14:30 08/16/17 03:35 RECENTERER Dosage Infused (Pha) 1 Q8HR .XX 08/14/17 22:00 08/16/17 06:00 Ampicillin Sodium/ Sulbactam Sodium 3 gm/Sodium Chloride 100 ml @ 200 mls/hr Q6H IV 08/15/17 12:00 08/16/17 11:56 (D50w (Vial) Inj) 50 ml UNSCH PRN IV PUSH 08/16/17 10:15 (Glucagon Inj) 1 mg UNSCH PRN OTHER 08/16/17 10:15 (Colace) 100 mg BID PO 08/16/17 10:30 08/16/17 10:52 (Miralax) 17 gm DAILY PO 08/16/17 10:30 Family Psych History No family psychiatric he Social History Patient was born and raised in [place], he lives in [facility] with his , he is a , disabled, 100% service connected Patient's Strengths (min. 2) Family support Physical Exam No tremors, no EPS, no withdrawal symptoms, no stiffness Vital Signs Vital Signs Date Time Temp Pulse Resp B/P (MAP) Pulse Ox O2 Delivery O2 Flow Rate FiO2 08/16/17 12:00 55 08/16/17 11:00 97.7 17 146/70 (95) 98 08/15/17 23:15 Nasal Cannula 08/15/17 19:20 2.00 08/15/17 15:59 I/O 08/16/17 08/16/17 08/17/17 08:00 16:00 00:00 Intake Total 600 ml 346 ml Output Total 505 ml Balance 95 ml 346 ml Lab Results Test 08/16/17 05:01 White Blood Count 12.5 TH/MM3 Red Blood Count 2.92 MIL/MM3 Hemoglobin 8.6 GM/DL Hematocrit 25.5 % Mean Corpuscular Volume 87.4 FL Mean Corpuscular Hemoglobin 29.5 PG Mean Corpuscular Hemoglobin Concent 33.7 % Red Cell Distribution Width 15.0 % Platelet Count 572 TH/MM3 Mean Platelet Volume 7.4 FL Neutrophils (%) (Auto) 80.9 % Lymphocytes (%) (Auto) 9.0 % Monocytes (%) (Auto) 5.8 % Eosinophils (%) (Auto) 3.7 % Basophils (%) (Auto) 0.6 % Neutrophils # (Auto) 10.1 TH/MM3 Lymphocytes # (Auto) 1.1 TH/MM3 Monocytes # (Auto) 0.7 TH/MM3 Eosinophils # (Auto) 0.5 TH/MM3 Basophils # (Auto) 0.1 TH/MM3 CBC Comment DIFF FINAL Differential Comment Blood Urea Nitrogen 8 MG/DL Creatinine 0.58 MG/DL Random Glucose 88 MG/DL Calcium Level 7.8 MG/DL Magnesium Level 2.3 MG/DL Sodium Level 139 MEQ/L Potassium Level 3.4 MEQ/L Chloride Level 104 MEQ/L Carbon Dioxide Level 27.1 MEQ/L Anion Gap 8 MEQ/L Estimat Glomerular Filtration Rate 141 ML/MIN Date/Time Source Procedure Growth Status 08/08/17 18:38 Blood Peripheral Aerobic Blood Culture - Final NO GROWTH IN 5 DAYS Complete 08/08/17 18:38 Blood Peripheral Anaerobic Blood Culture - Final NO GROWTH IN 5 DAYS Complete 08/14/17 14:55 Fluid Pleural Fluid Fungal Smear - Final NO FUNGAL ELEMENTS SEEN. Resulted 08/14/17 14:55 Fluid Pleural Fluid Fungal Culture Pending Resulted 08/09/17 18:00 Sputum Expectorated Sputum Gram Stain - Final Complete 08/09/17 18:00 Sputum Expectorated Sputum Sputum Culture - Final HEAVY GROWTH NORMAL RESPIRATORY MANDI Complete 08/09/17 18:00 Urine Clean Catch Legionella Antigen - Final PRESUMPTIVE NEGATIVE FOR LEGIONELLA P... Complete 08/09/17 18:00 Urine Clean Catch Streptococcus pneumoniae Antigen (M - Final PRESUMPTIVE NEGATIVE FOR STREPTOCOCCU... Complete Mental Status Examination Appearance: Appropriate Consciousness: Alert Orientation: x4 Motor Activity: Normal gait Speech: Unremarkable Language: Adequate Fund of Knowledge: Adequate Attention and Concentration: Adequate Memory: Unremarkable Mood: Angry, Sad Affect: Irritable Thought Process & Associations: Intact Thought Content: Appropriate Hallucination Type: None Delusion Type: None Suicidal Ideation: No Suicidal Plan: No Suicidal Intention: No Homicidal Ideation: No Homicidal Plan: No Homicidal Intention: No Insight: Fair Judgment: Impulsive Assessment & Plan Problem List: (1) Adjustment disorder with mixed anxiety and depressed mood ICD Codes: F43.23 - Adjustment disorder with mixed anxiety and depressed mood Assessment & Plan: On psychiatric evaluation today the patient reports symptoms of depression and anxiety in the context of acute hospitalization, uneffective communication with primary medical team, increased sense of self control loss. He reports to feel very overwhelmed, anxious, with hopelessness, helplessness, worthlessness, sense of frustration, poor sleep and appetite, he denies suicidal and homicidal ideation, he denies visual and auditory hallucinations. Multiple protective factors for suicidality and depression identified. The patient is oriented 3, logical, coherent and relevant. During my evaluation the patient is to be quite pessimistic and catastrophic. He is open to psychotherapy also to psychotropic management. I will start Remeron 15 mg at bedtime to help with depression, insomnia, poor appetite. Support, motivation and psychoeducation provided. He does not meet criteria for psychiatric admission. I will follow-up. Assessment & Plan Estimated LOS: Darren Simpson MD Aug 16, 2017 13:37
[2017-08-16] MEDS: LORazepam 0.5 MG TAB PO PRN (13:55)
--- NOTE | 2017-08-16 14:21 | PD.CAR.PN ---
CVT Progress Note Subjective/Hospital Course: A 66-year-old male with history of coronary artery disease, hepatitis C, also fibromyalgia, hyperlipidemia, who presented to the emergency room with progressive shortness of breath over about a month. He has also had some fevers and chills, weight loss of 20 pounds in about [address] a [address] scan, which showed a large right pleural effusion with loculation, evidence of some consolidation, single granulomatous disease in the spleen as well as some mediastinal adenopathy. He denies having any recent travel. No tuberculosis. He has been followed by the [place], Dr. Donis of the [facility] team. He underwent thoracentesis where they removed about 120 mL of cloudy yellow fluid. 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 We were consulted for right video-assisted thoracoscopy with decortication. PAST MEDICAL HISTORY: Hypertension, hyperlipidemia, hepatitis C, fibromyalgia, chronic pain, history of prior cardiac catheterization with stenting, lumbar disk surgery, cervical disk fusion. surgery: 08/14 Right thoracoscopic exploration, drainage of pleural effusion, decortication 08/15 pain controlled with bundle tier cytology and cultures pending consult PT/ OOB leave chest tube in 08/16 pt very depressed today / psych consulted no growth in recent pleural fluid from 08/14 prior fluid : Fusobacterium on antibiotics leave chest tube in / to wall suction Objective: GENERAL: A&O x 3 SKIN: Warm and dry. incision intact right posteo lateral chest wall HEAD: Normocephalic. EYES: No scleral icterus. No injection or drainage. NECK: Supple, trachea midline. No JVD or lymphadenopathy. CARDIOVASCULAR: Regular rate and rhythm without murmurs, gallops, or rubs. RESPIRATORY: Breath sounds equal bilaterally. No accessory muscle use. diminished right lower lobe, drained 180cc/ 12 hrs , serous GASTROINTESTINAL: Abdomen soft, non-tender, nondistended. MUSCULOSKELETAL: No cyanosis, or edema. BACK: Nontender without obvious deformity. No CVA tenderness. Vital Signs Date Time Temp Pulse Resp B/P (MAP) Pulse Ox O2 Delivery O2 Flow Rate FiO2 08/16/17 14:00 72 08/16/17 13:57 17 08/16/17 13:00 52 08/16/17 12:00 55 08/16/17 11:52 62 08/16/17 11:00 97.7 56 17 146/70 (95) 98 08/16/17 10:00 58 08/16/17 09:00 51 08/16/17 08:00 89 08/16/17 07:48 93 08/16/17 07:00 59 08/16/17 07:00 97.7 49 16 148/67 (94) 96 08/16/17 06:12 49 08/16/17 06:00 19 08/16/17 05:50 57 08/16/17 04:15 47 08/16/17 03:42 98.0 47 18 115/60 (78) 96 08/16/17 03:42 73 08/16/17 03:35 19 08/16/17 02:46 50 08/16/17 01:42 74 08/16/17 00:54 51 08/15/17 23:15 98 Nasal Cannula 08/15/17 23:15 97.7 53 17 113/59 (77) 98 08/15/17 23:15 52 08/15/17 22:08 50 08/15/17 22:00 20 08/15/17 21:30 51 08/15/17 20:01 50 08/15/17 19:20 100 Nasal Cannula 2.00 08/15/17 19:20 97.7 53 18 104/97 (99) 100 08/15/17 19:20 56 08/15/17 18:00 55 08/15/17 17:00 60 08/15/17 16:00 50 08/15/17 15:59 94 Nasal Cannula 2.00 08/15/17 15:00 97.5 57 18 114/59 (77) 97 08/15/17 15:00 97 Nasal Cannula 2.00 08/15/17 15:00 50 Labs: Laboratory Tests Test 08/16/17 05:01 White Blood Count 12.5 TH/MM3 (4.0-11.0) Red Blood Count 2.92 MIL/MM3 (4.50-5.90) Hemoglobin 8.6 GM/DL (13.0-17.0) Hematocrit 25.5 % (39.0-51.0) Mean Corpuscular Volume 87.4 FL (80.0-100.0) Mean Corpuscular Hemoglobin 29.5 PG (27.0-34.0) Mean Corpuscular Hemoglobin Concent 33.7 % (32.0-36.0) Red Cell Distribution Width 15.0 % (11.6-17.2) Platelet Count 572 TH/MM3 (150-450) Mean Platelet Volume 7.4 FL (7.0-11.0) Neutrophils (%) (Auto) 80.9 % (16.0-70.0) Lymphocytes (%) (Auto) 9.0 % (9.0-44.0) Monocytes (%) (Auto) 5.8 % (0.0-8.0) Eosinophils (%) (Auto) 3.7 % (0.0-4.0) Basophils (%) (Auto) 0.6 % (0.0-2.0) Neutrophils # (Auto) 10.1 TH/MM3 (1.8-7.7) Lymphocytes # (Auto) 1.1 TH/MM3 (1.0-4.8) Monocytes # (Auto) 0.7 TH/MM3 (0-0.9) Eosinophils # (Auto) 0.5 TH/MM3 (0-0.4) Basophils # (Auto) 0.1 TH/MM3 (0-0.2) CBC Comment DIFF FINAL Differential Comment Blood Urea Nitrogen 8 MG/DL (7-18) Creatinine 0.58 MG/DL (0.60-1.30) Random Glucose 88 MG/DL (74-106) Calcium Level 7.8 MG/DL (8.5-10.1) Magnesium Level 2.3 MG/DL (1.5-2.5) Sodium Level 139 MEQ/L (136-145) Potassium Level 3.4 MEQ/L (3.5-5.1) Chloride Level 104 MEQ/L (98-107) Carbon Dioxide Level 27.1 MEQ/L (21.0-32.0) Anion Gap 8 MEQ/L (5-15) Estimat Glomerular Filtration Rate 141 ML/MIN (>89) Result Diagram: 08/16/17 0501 08/16/17 0501 (1) Pleural effusion (2) Loculated empyema (3) Right thoracoscopic exploration, drainage of pleural effusion, decortication Plan: no growth to date in current cultures cytology pending ID following leave chest tube in / leave to wall suction OOB (4) Adjustment disorder with mixed anxiety and depressed mood Plan: psych consulted Ramonita,Tyra R. MALLET CUTTER Aug 16, 2017 14:21
--- NOTE | 2017-08-16 14:35 | PD.CONS ---
Consult Service Palliative Care . Consult Requested By Dr. Garza . Primary Care Physician [facility] . Reason for Consultation a. To assist with evaluation and management of symptoms including: pain, depression b. To assist medical decision maker(s) with: better understanding of current medical conditions; weighing benefits/burdens of medical treatment options; making medical treatment decisions. . HPI History of Present Illness Mr. Mcdaniel is a 66-year-old male with hyperlipidemia, CAD, Hep C, chronic pain and fibromyalgia who presented to [facility] ED on 08/08/2017 for evaluation of shortness of breath with minimal exertion. He was advised to go to the ED by the NM after having lab work done earlier in the day which showed his WBC was 29. Patient reported his short of breath began approximately 1 month earlier with subjective fevers/chills and a productive cough. He also complained of a 15-20 pound weight loss over the past 30 days secondary to anorexia. Patient has a complicated past medical history involving a vagotomy and unknown stomach reconstruction/bypass. Diagnostic data while in the ED: * Vital signs: Pulse 80, respiration 16, BP 111/60, oxygen saturation 93% on room air and temperature of 99.2 * WBC: 29.5, hemoglobin 11.6, hematocrit 34.2, platelets 831, neutrophils 88.3% * Sodium: 128, potassium 4.0, chloride 94, glucose 98, calcium 8.9 * BUN: 13, creatinine 0.69, GFR 115 lactic acid: 1.2 * Total bilirubin: 0.5, AST 32, ALT 24 * Alkaline phosphatase: 170 * Total protein: 7.6, albumin 2.3 * Chest x-ray revealed a moderate sized right pleural effusion * CT chest showed calcified mediastinal adenopathy with multiple enlarged partially calcified lymph nodes throughout the mediastinum; there are calcified granulomas in the spleen; a large right-sided pleural effusion is noted; calcified bilateral hilar lymph nodes; consolidation in the right lower lobe. There were scattered calcified granulomas present. Review of lung windows demonstrate a 1.7 cm nodular focus in the left lower lobe likely related to atelectasis. Patient received azithromycin and Rocephin while in the ED. He was admitted to the hospitalist services with a large loculated right pleural effusion, etiology undetermined, possible empyema and underlying pneumonia. Pulmonology and cardiothoracic surgery were consulted. Patient was taken to IR for thoracentesis on 08/09/17; approximately 120 mL's of cloudy, yellow fluid no was removed and sent for evaluation. Cytology was negative for malignant cells; pleural fluid culture was positive for anaerobic gram-positive cocci, Fusobacterium species suggestive of an empyema. Films were evaluated by Dr. Overton and made recommendations for a right thoracoscopy with decortication. Pneumococcal and Legionella urinary antigens negative; sputum culture negative; tumor marker were within normal limits - AFP: 2.4; CEA: 3.5; CA 19-9: 1.3 Patient was taken to the OR on 08/14/2017 for a right thorascopic exploration, drainage of pleural effusion and decortication with Dr. Overton. Approximately 600 mL's of purulent effusion was drained; fluid was submitted for cultures and cytology-results pending. The pleural fluid showed 41,750 WBC with 99% neutrophils and a glucose level <1; ongoing leukocytosis. Infectious disease was consulted to assist in management of patient with sepsis status post thoracentesis. Zosyn was discontinued, and the patient was started on Unasyn. Patient will likely require outpatient IV antibiotics upon discharge. Most recent chest x-ray on 08/15/2017 showing no significant interval change. Small right pleural effusion and small right pneumothorax. Right-sided chest tube remains in place. Palliative Care was consulted to assist with symptom management and to discuss with the patient the benefits and burdens of his current illnesses and the options regarding future care. Patient verbalizing aggressive goals at the time of examination. He states he feels "depressed, helpless and hopeless." However he does not wish to ; he "just want to go home" where he plans on completing the recommended course of IV antibiotics. Psychiatry was consulted and started the patient on Remeron 15 mg at bedtime to help with depression, insomnia and poor appetite. . Function/Cognitive Trajectory Patient reports multiple, complicated hospitalizations in the past 2 years with a 60 pound reported weight loss in the past 6 months. . Review of Systems Constitutional: COMPLAINS OF: Fever (Subjectively reported), Weight loss (15- 20 pound weight loss reported over the past month secondary to anorexia; 60 pound weight loss over the past 6 months reported.), Chills, Change in appetite (poor appetite), Pain (Chronic pain syndrome; fibromyalgia), Generalized weakness (3 months) Respiratory: COMPLAINS OF: Cough, Shortness of breath (1 month) Cardiovascular: DENIES: Chest pain Gastrointestinal: COMPLAINS OF: Nausea, Anorexia, DENIES: Abdominal pain, Diarrhea, Vomiting Musculoskeletal: COMPLAINS OF: Neck pain Psychiatric: COMPLAINS OF: Depression, DENIES: Suicidal Ideation, Homicidal Ideation Past Family Social History Coded Allergies: baclofen (Verified Allergy, Unknown, Seizures, 08/14/17) Past Medical History Hyperlipidemia Coronary artery disease Hepatitis C Chronic pain Fibromyalgia . Past Surgical History Cardiac cath status post stent placement 1 Lumbar disk surgery Cervical disk fusion Vagotomy Unspecified gastric surgery/bypass . Reported Medications Suboxone Sublingual Film (Buprenorphine-Naloxone Sublingual Film) 8-2 Mg Film 1 Film SL BID Omeprazole 40 Mg Cap 40 Mg BID . Current Medications Medications (Trade) Dose Ordered Sig/Alejandro Route Start Time Stop Time Status Last Admin (Duoneb Neb) 1 ampule Q4HR NEB PRN NEB 08/08/17 22:30 08/14/17 04:03 (Tylenol) 650 mg Q4H PRN PO 08/08/17 22:30 (Zofran Odt) 4 mg Q6H PRN PO 08/08/17 22:45 08/15/17 21:28 (Heparin Inj) 5,000 units Q12H SQ 08/08/17 23:00 08/16/17 10:55 (Narcan Inj) 0.4 mg UNSCH PRN IV PUSH 08/08/17 22:30 (Dulcolax Supp) 10 mg DAILY PRN RECTAL 08/08/17 22:30 (Lactulose Liq) 30 ml DAILY PRN PO 08/08/17 22:30 (Mucinex Er) 600 mg BID PO 08/09/17 21:00 08/16/17 08:56 Cefazolin Sodium 500 mg/Sodium Chloride 505 ml @ 0 mls/hr TIME ANALYSIS CLERK IRRIGATION 08/11/17 14:15 08/18/17 14:14 Cefazolin Sodium/ Dextrose 50 ml @ 150 mls/hr TIME ANALYSIS CLERK IV 08/11/17 14:15 08/18/17 14:14 Lactated Ringer's 1,000 ml @ 30 mls/hr Q24H PRN IV 08/14/17 04:30 08/17/17 04:29 08/14/17 17:00 Sodium Chloride 500 ml @ 30 mls/hr [id number] PRN IV 08/14/17 04:30 08/17/17 04:29 08/15/17 08:15 (Lopressor) 25 mg TIME ANALYSIS CLERK PRN PO 08/14/17 04:30 08/17/17 04:29 (Betadine 5% Antisepsis Kit) 1 applic TIME ANALYSIS CLERK PRN EACH NARE 08/14/17 04:30 08/17/17 04:29 (Chlorhexidine 2% Cloth) 3 pack TIME ANALYSIS CLERK PRN TOPICAL 08/14/17 04:30 08/17/17 04:29 (Albuterol Neb) 2.5 mg Q6HR NEB NEB 08/14/17 16:00 08/16/17 07:38 (Albuterol Neb) 2.5 mg Q2HR NEB PRN NEB 08/14/17 14:30 (NS Flush) 2 ml BID IV FLUSH 08/14/17 21:00 08/16/17 08:56 (NS Flush) 2 ml UNSCH PRN IV FLUSH 08/14/17 14:30 (Protonix) 40 mg HS PO 08/14/17 21:00 08/14/17 21:25 (Milk Of Magnesia Liq) 30 ml DAILY PRN PO 08/14/17 14:30 08/16/17 10:52 (Tylenol) 650 mg Q4H PRN PO 08/14/17 14:30 (Narcan Inj) 0.4 mg UNSCH PRN IV PUSH 08/14/17 14:30 (Morphine 1 Mg/ ml DIAGRAM CLERK) 30 mg UNSCH IV 08/14/17 14:30 08/16/17 03:35 DIAGRAM CLERK Dosage Infused (Pha) 1 Q8HR .XX 08/14/17 22:00 08/16/17 06:00 Ampicillin Sodium/ Sulbactam Sodium 3 gm/Sodium Chloride 100 ml @ 200 mls/hr Q6H IV 08/15/17 12:00 08/16/17 11:56 (D50w (Vial) Inj) 50 ml UNSCH PRN IV PUSH 08/16/17 10:15 (Glucagon Inj) 1 mg UNSCH PRN OTHER 08/16/17 10:15 (Colace) 100 mg BID PO 08/16/17 10:30 08/16/17 10:52 (Miralax) 17 gm DAILY PO 08/16/17 10:30 (Remeron) 15 mg HS PO 08/16/17 21:00 Family History Patient's father secondary to an DC at the age of 59; patient's mother with dementia and diabetes Substance Use Tobacco: Smokes 1 PPD Alcohol: Patient denies Prescription med abuse: None unknown Illicits: Patient denies . Psychosocial History Patient is originally from [place] where he lived most of his life. He has been to his (Sindhu) for approximately 43 years. Together they have 2 daughters (Zita and Jennifer). The patient states he has always dreamed of moving to [place] and was finally able to move to [place] approximately 7 weeks ago. He currently reside with his and daughter (Jennifer) as well as his 17 year old grandson (Jameson). Patient is an [employer] , 100% service-connected , with a psychiatric history of depression and PTSD. . Spiritual/Cultural Factors Pending further conversations . Health Care Surrogate: Copy in medical record Date completed: 08/16/2017 . Health Care Surrogate(s): Patient has designated his daughter, Leonor Mcdaniel, as his healthcare surrogate decision maker. . Documented care wishes: Copies of the healthcare surrogate designation form completed on 08/16/2017 were placed in the patient's paper chart and faxed to HIM to be scanned into the EMR. Patient was given the original document. Living will form was left for the patient to review. . Today's verbally stated goals: Patient wants to be discharge home stating he "feels like he is in prison here"; however is goals remain aggressive and he would like to complete extended antibiotic therapy outpatient as recommended. . Family/friends goals: No family or friends were present at the time of exam. Patient requested that his family not be called unless absolutely necessary. . Ethical and Legal Issues No known ethical or legal issues at this time. . Physical Exam Vital Signs Date Time Temp Pulse Resp B/P (MAP) Pulse Ox O2 Delivery O2 Flow Rate FiO2 08/16/17 12:00 55 08/16/17 11:52 62 08/16/17 11:00 97.7 56 17 146/70 (95) 98 08/16/17 10:00 58 08/16/17 09:00 51 08/16/17 08:00 89 08/16/17 07:48 93 08/16/17 07:00 59 08/16/17 07:00 97.7 49 16 148/67 (94) 96 08/16/17 06:12 49 08/16/17 06:00 19 08/16/17 05:50 57 08/16/17 04:15 47 08/16/17 03:42 98.0 47 18 115/60 (78) 96 08/16/17 03:42 73 08/16/17 03:35 19 08/16/17 02:46 50 08/16/17 01:42 74 08/16/17 00:54 51 08/15/17 23:15 98 Nasal Cannula 08/15/17 23:15 97.7 53 17 113/59 (77) 98 08/15/17 23:15 52 08/15/17 22:08 50 08/15/17 22:00 20 08/15/17 21:30 51 08/15/17 20:01 50 08/15/17 19:20 100 Nasal Cannula 2.00 08/15/17 19:20 97.7 53 18 104/97 (99) 100 08/15/17 19:20 56 08/15/17 18:00 55 08/15/17 17:00 60 08/15/17 16:00 50 08/15/17 15:59 94 Nasal Cannula 2.00 08/15/17 15:00 97.5 57 18 114/59 (77) 97 08/15/17 15:00 97 Nasal Cannula 2.00 08/15/17 15:00 50 08/15/17 14:00 61 08/15/17 14:00 16 08/16/17 08/17/17 18:59 06:59 Intake Total 346 ml Balance 346 ml IV Total 346 ml Exam CONSTITUTIONAL/GENERAL: This is an adequately nourished patient, in no apparent distress. TUBES/LINES/DRAINS: SKIN: No jaundice, rashes, or lesions. Ecchymoses on upper extremities. No wounds seen anteriorly. Skin temperature appropriate. Not diaphoretic. HEAD: Atraumatic. Normocephalic. EYES: Pupils equal and round and reactive. Extraocular motions intact. No scleral icterus. No injection or drainage. Fundi not examined. ENT: Hearing grossly normal. Nose without bleeding or purulent drainage. Throat without visible erythema, exudates, masses, or lesions. NECK: Trachea midline. Supple, nontender. No palpable thyroid enlargement or nodularity. CARDIOVASCULAR: Regular rate and rhythm without murmurs, gallops, or rubs. No JVD. Peripheral pulses symmetric. RESPIRATORY/CHEST: Symmetric, unlabored respirations. Clear to auscultation. Breath sounds equal bilaterally. No wheezes, rales, or rhonchi. GASTROINTESTINAL: Abdomen soft, non-tender, nondistended. No hepato-splenomegaly , or palpable masses. No guarding. Bowel sounds present. GENITOURINARY: Without palpable bladder distension. Siegel catheter in place. MUSCULOSKELETAL: Extremities without clubbing, cyanosis, or edema. No joint tenderness or effusion noted. No calf tenderness. No mottling or clubbing. LYMPHATICS: No palpable cervical or supraclavicular adenopathy. NEUROLOGICAL: Awake and alert. Motor and sensory grossly within normal limits. Follows commands. Cognitively sharp. Moves all extremities. PSYCHIATRIC: No obvious anxiety/depression. no apparent hallucinations or other psychotic thought process. Diagnostic Tests Laboratory Laboratory Tests Test 08/14/17 07:30 08/15/17 04:58 08/16/17 05:01 Prothrombin Time 13.1 SEC (9.8-11.6) Prothromb Time International Ratio 1.3 RATIO White Blood Count 18.7 TH/MM3 (4.0-11.0) 12.5 TH/MM3 (4.0-11.0) Red Blood Count 3.03 MIL/MM3 (4.50-5.90) 2.92 MIL/MM3 (4.50-5.90) Hemoglobin 8.8 GM/DL (13.0-17.0) 8.6 GM/DL (13.0-17.0) Hematocrit 26.2 % (39.0-51.0) 25.5 % (39.0-51.0) Mean Corpuscular Volume 86.5 FL (80.0-100.0) 87.4 FL (80.0-100.0) Mean Corpuscular Hemoglobin 28.9 PG (27.0-34.0) 29.5 PG (27.0-34.0) Mean Corpuscular Hemoglobin Concent 33.4 % (32.0-36.0) 33.7 % (32.0-36.0) Red Cell Distribution Width 14.8 % (11.6-17.2) 15.0 % (11.6-17.2) Platelet Count 600 TH/MM3 (150-450) 572 TH/MM3 (150-450) Mean Platelet Volume 7.3 FL (7.0-11.0) 7.4 FL (7.0-11.0) Neutrophils (%) (Auto) 92.2 % (16.0-70.0) 80.9 % (16.0-70.0) Lymphocytes (%) (Auto) 4.8 % (9.0-44.0) 9.0 % (9.0-44.0) Monocytes (%) (Auto) 2.7 % (0.0-8.0) 5.8 % (0.0-8.0) Eosinophils (%) (Auto) 0.1 % (0.0-4.0) 3.7 % (0.0-4.0) Basophils (%) (Auto) 0.2 % (0.0-2.0) 0.6 % (0.0-2.0) Neutrophils # (Auto) 17.2 TH/MM3 (1.8-7.7) 10.1 TH/MM3 (1.8-7.7) Lymphocytes # (Auto) 0.9 TH/MM3 (1.0-4.8) 1.1 TH/MM3 (1.0-4.8) Monocytes # (Auto) 0.5 TH/MM3 (0-0.9) 0.7 TH/MM3 (0-0.9) Eosinophils # (Auto) 0.0 TH/MM3 (0-0.4) 0.5 TH/MM3 (0-0.4) Basophils # (Auto) 0.0 TH/MM3 (0-0.2) 0.1 TH/MM3 (0-0.2) CBC Comment DIFF FINAL DIFF FINAL Differential Comment Blood Urea Nitrogen 7 MG/DL (7-18) 8 MG/DL (7-18) Creatinine 0.61 MG/DL (0.60-1.30) 0.58 MG/DL (0.60-1.30) Random Glucose 149 MG/DL (74-106) 88 MG/DL (74-106) Calcium Level 8.0 MG/DL (8.5-10.1) 7.8 MG/DL (8.5-10.1) Sodium Level 136 MEQ/L (136-145) 139 MEQ/L (136-145) Potassium Level 3.6 MEQ/L (3.5-5.1) 3.4 MEQ/L (3.5-5.1) Chloride Level 101 MEQ/L (98-107) 104 MEQ/L (98-107) Carbon Dioxide Level 26.0 MEQ/L (21.0-32.0) 27.1 MEQ/L (21.0-32.0) Anion Gap 9 MEQ/L (5-15) 8 MEQ/L (5-15) Estimat Glomerular Filtration Rate 133 ML/MIN (>89) 141 ML/MIN (>89) Magnesium Level 2.3 MG/DL (1.5-2.5) . Result Diagram: 08/16/17 0501 08/16/17 0501 Microbiology Microbiology Date/Time Source Procedure Growth Status 08/14/17 14:55 Fluid Pleural Fluid Fungal Smear - Final NO FUNGAL ELEMENTS SEEN. Resulted 08/14/17 14:55 Fluid Pleural Fluid Fungal Culture Pending Resulted 08/14/17 14:55 Fluid Pleural Fluid Acid Fast Stain Pending Received 08/14/17 14:55 Fluid Pleural Fluid Mycobacterial Culture Pending Received 08/14/17 14:55 Fluid Pleural Fluid Gram Stain - Final Resulted 08/14/17 14:55 Fluid Pleural Fluid Body Fluid Culture - Preliminary NO GROWTH IN 48 HOURS. Resulted 08/14/17 14:55 Fluid Pleural Fluid Fungal Smear - Final NO FUNGAL ELEMENTS SEEN. Resulted 08/14/17 14:55 Fluid Pleural Fluid Fungal Culture Pending Resulted 08/14/17 14:55 Fluid Pleural Fluid Acid Fast Stain Pending Worksheet 08/14/17 14:55 Fluid Pleural Fluid Mycobacterial Culture Pending Worksheet 08/14/17 14:55 Fluid Prostatic Fluid Gram Stain - Final Resulted 08/14/17 14:55 Fluid Prostatic Fluid Body Fluid Culture - Preliminary NO GROWTH IN 48 HOURS. Resulted . Imaging Last 72 hours Impressions Chest X-Ray 08/15/17 0500 Signed Impressions: CONCLUSION: No significant interval change. Small right pleural effusion and small right pn eumothorax. Right-sided chest tube remains in place. Chest X-Ray 6/11/18 0000 Signed Impressions: CONCLUSION: 1. Right sided chest tube placement with evacuation of the effusion. A small p neumothorax is noted. 2. Consolidation involving the right base. . Procedures 08/14/17: VATS decortication with chest tube placement . Patient/Family Conference Present at Family Conference: Spoke with patient at bedside. . Family Conference Location: Bedside Issues Discussed: * Palliative care role, purpose, approach * Additional medical, psychosocial, and spiritual history * Patients general health, functional status, and cognitive changes in the months leading up to the current hospitalization * Patient/family understanding of the current medical problems * Patient/family understanding of prognosis * Patients goals of care as best understood from advance directives and/or conversations and/or values * Current medical treatment options and benefits/burdens of those options * Likely scenarios comparing ongoing aggressive care with a transition to comfort measures only * Questions answered to the best of my ability * Palliative care contact information provided . Assessment and Plan Disease Oriented Problem List: (1) PTSD (post-traumatic stress disorder) (2) Hyperlipidemia (3) Coronary artery disease (4) Fibromyalgia (5) Hepatitis C (6) Leukocytosis (7) Pleural effusion (8) Community acquired bacterial pneumonia (9) Loculated empyema (10) Right thoracoscopic exploration, drainage of pleural effusion, decortication (11) Adjustment disorder with mixed anxiety and depressed mood Symptom Scale: (1) Depression 0-10 Scale: Unable to quantify (2) Pain 0-10 Scale: Unable to quantify Pertinent Non-Medical Issues Psychosocial: Patient is originally from [place] where he lived most of his life. He has been to his (Sindhu) for approximately 43 years. Together they have 2 daughters (Zita and Jennifer). The patient states he has always dreamed of moving to [place] and was finally able to move to [place] approximately 7 weeks ago. He currently reside with his and daughter (Jennifer) as well as his 17 year old grandson (Jameson). Patient is an [employer] , 100% service-connected, with a psychiatric history of depression and PTSD Spiritual: Pending further conversations Legal: Patient completed a health care surrogate designation form that designates his daughter, Zita Mcdaniel, as the [facility] decision maker. Ethical issues impacting care: No known ethical issues impacting care at this time. . Important Contacts zahra Granados/[facility]: [phone] (Patient does not want his daughter called unless it is absolutely necessary) Sindhu Mcdaniel, : [phone] . Prognosis Patient is a 66 year male with a complex medical history. He states he has had multiple hospitalizations in the past 2 years and reports a 60lb weight loss in the past 6 months. He is currently hospitalized sepsis and pneumonia s/p thorascopic exploration with decortication. Patient will require outpatient antibiotics for approximately 6 weeks. . Code Status: Full Code Plan * FULL CODE * Decision-making: Patient currently shows good insight and judgment related to his medical conditions. He completed a healthcare surrogate designation form on 08/16/2017 designating his daughter (Zita Mcdaniel) as his [facility] decision-maker. * Patient prefers to update his family on his medical condition at this time. * Goals: Patient wants to be discharge home stating he "feels like he is in prison here"; however is goals remain aggressive and he would like to complete extended antibiotic therapy outpatient as recommended. * Discussed patient with Dr. Graza and RN, [place] * Palliative care contact information provided to the patient. * Symptom management: == Pain: Multifactoral. Status post VATS decortication on 08/14/2017; right- sided chest tube remains in place. Additional factors may include sepsis, pneumonia, invasive lines, depression, chronic pain syndromes, fibromyalgia. Patient is currently on DIAGRAM CLERK pump. Prior review of EMR , patient taking Suboxone prior to admission negative of opioid dependency. Suspected history of drug dependency may complicated ability for Palliative care to adequately manage pain. Opioid dependency is beyond the scope of practice for palliative care. == Depression: Patient has a known history of depression and PTSD; one previous psychiatric hospitalization 20 years ago. Patient stating he feels "depressed, helpless and hopeless." Psychiatry was consulted for recommendations. Per Dr. Duvall's note, " the patient is to be quite pessimistic and catastrophic. He is open to psychotherapy also to psychotropic management. I will start Remeron 15 mg at bedtime to help with depression, insomnia, poor appetite. Support , motivation and psychoeducation provided. He does not meet criteria for psychiatric admission." Psychiatry will continue to follow * Palliative care will continue to follow patient throughout hospitalization to establish trust, assist with symptom management and clarification of medical treatment goals. . Time Spent Total Floor Time (mins): 84 (2:24pm -) Face to Face Time (mins): 25 (2:24pm-3:48pm) >50% Counseling/Coord of Care: Yes (Time to include review of medical notes, examination/discussion with patient and collaboration with medical team) Thank you for the opportunity to participate in the care of Mr. Mcdaniel. . Attestation To help prompt me to consider important information that might be impacting today's encounter and assessment, information from prior notes written by myself or my colleagues may have been "brought forward" into today's note. My signature on this note, however, is an attestation that I personally performed the exam, history, and/or decision-making noted today, and, unless otherwise indicated, the interactions with patient, family, and staff as well as the review of records all occurred today. I also attest that the listed assessment and stated plan reflect my best clinical judgment today based on the combination of historical information, prior notes, and today's exam/ interactions. When time spent is documented, it refers only to time spent today by the signer, or if indicated, combined time spent today by collaborating physician/nurse practitioner. . Caitie Ma Aug 16, 2017 14:33
--- NOTE | 2017-08-16 19:00 | HHI.PR ---
Subjective Remarks He is Post Op right Vats thoracotomy and decortication..On IV Unasyn Wants to go home.. 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 Off O2. Objective Vital Signs Date Time Temp Pulse Resp B/P (MAP) Pulse Ox O2 Delivery O2 Flow Rate FiO2 08/16/17 18:00 53 08/16/17 17:00 64 08/16/17 16:00 51 08/16/17 15:30 98.0 58 17 141/65 (90) 94 08/16/17 15:00 62 08/16/17 14:00 72 08/16/17 13:57 17 08/16/17 13:00 52 08/16/17 12:00 55 08/16/17 11:52 62 08/16/17 11:00 97.7 56 17 146/70 (95) 98 08/16/17 10:00 58 08/16/17 09:00 51 08/16/17 08:00 89 08/16/17 07:48 93 08/16/17 07:00 59 08/16/17 07:00 97.7 49 16 148/67 (94) 96 08/16/17 06:12 49 08/16/17 06:00 19 08/16/17 05:50 57 08/16/17 04:15 47 08/16/17 03:42 98.0 47 18 115/60 (78) 96 08/16/17 03:42 73 08/16/17 03:35 19 08/16/17 02:46 50 08/16/17 01:42 74 08/16/17 00:54 51 08/15/17 23:15 98 Nasal Cannula 08/15/17 23:15 97.7 53 17 113/59 (77) 98 08/15/17 23:15 52 08/15/17 22:08 50 08/15/17 22:00 20 08/15/17 21:30 51 08/15/17 20:01 50 08/15/17 19:20 100 Nasal Cannula 2.00 08/15/17 19:20 97.7 53 18 104/97 (99) 100 08/15/17 19:20 56 I/O 08/15/17 08/15/17 08/15/17 08/16/17 08/16/1718 07:00 15:00 23:00 07:00 15:00 23:00 Intake Total 986 ml 369 ml 280 ml 600 ml 346 ml 939 ml Output Total 350 ml 622 ml 505 ml 800 ml Balance 636 ml 369 ml -342 ml 95 ml 346 ml 139 ml Intake Oral 240 ml 600 ml 840 ml IV Total 746 ml 369 ml 280 ml 346 ml 99 ml Output Urine Total 250 ml 500 ml 325 ml 650 ml Chest Tube Drainage Total 100 ml 122 ml 180 ml 150 ml # Bowel Movements 0 Result Diagram: 08/16/17 0501 08/16/17 0501 Objective Remarks GENERAL: This is an averagely, elderly man who is in the bed, pale, in no acute distress. HEENT: Head is normocephalic. Pupils are reactive. Tongue is moist. Nasal mucosa edematous. Throat is clear. NECK: Supple, no bruits or thyroid enlargement. LUNGS: There are decreased breath sounds over the right mid and lower chest . Occ Crackles. HEART: The heart sounds are regular S1 and S2 with no murmur. No S3 gallop. ABDOMEN: Soft and nontender. No organomegaly. Bowel sounds are active. EXTREMITIES: No lesions, no edema. NEUROLOGIC: Reflexes are 1+ with no gross motor deficits. RECTAL: Deferred. SKIN: No lesions observed. Assessment and Plan Assessment and Plan ASSESSMENT: 1. Large loculated right pleural effusion, etiology undetermined, possible empyema and underlying pneumonia. 2. Chronic obstructive pulmonary disease. 3. Hyperlipidemia and coronary artery disease. 4. S/P Decortication right chest 5. History of hepatitis C. 6. Chronic back pain. Plan : 1. Continue antibiotics.per ID 2. O2 2 L.PRN 3. Nebs qid , duoneb 4. IS Q2H. bedside 5. CBC,BMP in am. 6. Symbicort 160/4.5 mcg , 2puffs BID 7. Chest tube to drain. Kevin Myles MD Aug 16, 2017 19:00
[2017-08-16] MEDS: PANTOPRAZOLE SOD 40 MG DELAYED RELEASE TAB PO SCH (21:00)
[2017-08-16] MEDS: MIRTAZAPINE 15 MG TAB PO SCH (21:00)
[2017-08-17] VITALS (28 sets, daily range): BP systolic 121–162; BP diastolic 58–77; PULSE 54–83; RESP 16–22; TEMP 97.8–100.2; O2SAT 93–96
[2017-08-17] MEDS: AMPICILLIN-SULBACTAM INJ 3 GM in SODIUM CHLORIDE 0.9% INJ 100 ML IV SCH ×5 (02:37→23:50)
[2017-08-17] MEDS: RESP: ALBUTEROL 2.5 MG/3 ML NEB (SCH) NEB ×4 (03:38→21:23)
[2017-08-17 04:58] LABS: AUTOMATED NEUTROPHIL # 6.7 TH/MM3 (1.8-7.7); BASOPHIL # 0.1 TH/MM3 (0-0.2); BASOPHIL % 1.1 % (0.0-2.0); EOSINOPHIL # 0.9 TH/MM3 (0-0.4); EOSINOPHIL % 8.8 % (0.0-4.0); HEMATOCRIT 26.1 % (39.0-51.0); HEMOGLOBIN 8.8 GM/DL (13.0-17.0); LYMPH % 14.2 % (9.0-44.0); LYMPHOCYTE # 1.4 TH/MM3 (1.0-4.8); MEAN CELL VOLUME 86.1 FL (80.0-100.0); MEAN CORPUSCULAR HGB CONC 33.7 % (32.0-36.0); MEAN PLATELET VOLUME 7.2 FL (7.0-11.0); MONO % 7.3 % (0.0-8.0); MONOCYTE # 0.7 TH/MM3 (0-0.9); NEUT % 68.6 % (16.0-70.0); PLATELET COUNT 627 TH/MM3 (150-450); RED BLOOD COUNT 3.03 MIL/MM3 (4.50-5.90); RED CELL DISTRIBUTION WIDTH 15.2 % (11.6-17.2); WHITE BLOOD COUNT 9.7 TH/MM3 (4.0-11.0)
[2017-08-17 05:26] LABS: BICARBONATE 29.3 MEQ/L (21.0-32.0); CALCIUM 7.6 MG/DL (8.5-10.1); CREATININE 0.49 MG/DL (0.60-1.30)
[2017-08-17] MEDS: PCA - TOTAL MG MORPHINE DELIVERED PER SHIFT SCH ×3 (06:00→22:00)
[2017-08-17] MEDS: SODIUM CHLORIDE 0.9% FLUSH 10 ML FLUSH IV FLUSH SCH ×2 (08:37→21:00)
[2017-08-17] MEDS: DOCUSATE SODIUM 100 MG CAP PO SCH ×2 (08:38→20:57)
[2017-08-17] MEDS: POLYETHYLENE GLYCOL 17 GM PKG PO SCH (08:38)
[2017-08-17] MEDS: guaiFENesin E.R. 600 MG TAB PO SCH ×2 (08:38→20:56)
--- NOTE | 2017-08-17 10:19 | HHI.PR ---
Subjective Remarks He is in the chair says she wants to do some more physical therapy as he wants to improve. He is still using SEARCH OPTIMIZATION ANALYST pump does not have pain at this time, will transition to p.o. medications and by IV for breakthrough pain when is using SEARCH OPTIMIZATION ANALYST pump. No nausea vomiting no diarrhea constipation. No much cough. No fever or chills overnight. Still feels very weak. Objective Vitals Vital Signs Date Time Temp Pulse Resp B/P (MAP) Pulse Ox O2 Delivery O2 Flow Rate FiO2 08/17/17 10:00 93 Nasal Cannula 21 08/17/17 08:30 97.9 70 18 162/74 (103) 95 08/17/17 06:37 59 08/17/17 06:00 16 08/17/17 05:00 54 08/17/17 04:00 56 08/17/17 04:00 97.9 56 16 128/75 (92) 94 08/17/17 03:00 62 08/17/17 02:00 56 08/17/17 01:00 56 08/17/17 00:00 56 08/17/17 00:00 97.8 56 16 125/63 (83) 93 08/16/17 23:00 55 08/16/17 22:18 16 08/16/17 22:00 54 08/16/17 22:00 16 08/16/17 21:00 54 08/16/17 20:00 50 08/16/17 20:00 97.8 57 16 150/71 (97) 95 08/16/17 19:00 65 08/16/17 18:00 53 08/16/17 17:00 64 08/16/17 16:00 51 08/16/17 15:30 98.0 58 17 141/65 (90) 94 08/16/17 15:00 62 08/16/17 14:00 72 08/16/17 13:57 17 08/16/17 13:00 52 08/16/17 12:00 55 08/16/17 11:52 62 08/16/17 11:00 97.7 56 17 146/70 (95) 98 I/O 08/16/17 08/16/17 08/16/17 08/17/17 08/17/17 08/17/17 07:00 15:00 23:00 07:00 15:00 23:00 Intake Total 600 ml 346 ml 939 ml 240 ml Output Total 505 ml 800 ml 1160 ml Balance 95 ml 346 ml 139 ml -920 ml Intake Oral 600 ml 840 ml 240 ml IV Total 346 ml 99 ml Output Urine Total 325 ml 650 ml 1000 ml Stool Total 0 ml Chest Tube Drainage Total 180 ml 150 ml 160 ml # Bowel Movements 0 Result Diagram: 08/17/17 0420 08/17/17 0420 Imaging Last Impressions Chest X-Ray 08/15/17 0500 Signed Impressions: CONCLUSION: No significant interval change. Small right pleural effusion and small right pn eumothorax. Right-sided chest tube remains in place. Thoracentesis Ultrasound 08/09/17 0000 Signed Impressions: CONCLUSION: Uncomplicated right thoracentesis. As described above, the pleural effusion is complex containing multiple septations preventing complete evacuation. Abdomen/Pelvis CT 08/09/17 Signed Impressions: CONCLUSION: 1. Loculated pleural effusion and associated right lower lobe consolidation ar e unchanged from yesterday's exam. 2. Trace amount of free fluid within the pelvis. 3. No acute abnormality. Chest CT 08/08/17 0000 Signed Impressions: CONCLUSION: 1. Large right effusion and consolidation. 2. Granulomatous disease is noted as above. Objective Remarks GENERAL: 66 yo male appearing older than the stated age, cachectic, chronically ill appearing however not in apparent distress. He appears sad and frustrated. CARDIOVASCULAR: Regular rate and rhythm without murmurs, gallops, or rubs. RESPIRATORY: Right back mid lateral chest tube in place, draining serosanguineous fluid Breath sounds decrease mostly on the right. No accessory muscle use. GASTROINTESTINAL: Abdomen soft, non-tender, nondistended. MUSCULOSKELETAL: No cyanosis, or edema. BACK: Nontender without obvious deformity. No CVA tenderness. Procedures Thoracentesis s/p decortication right chest on 08/14/[address] Montez A/P Problem List: (1) Pleural effusion on right ICD Code: J90 - Pleural effusion, not elsewhere classified (2) Community acquired bacterial pneumonia ICD Code: J15.9 - Unspecified bacterial pneumonia Assessment and Plan 66-year-old man with Community-acquired bacterial pneumonia CT chest noted with finding of consolidation Currently on azithromycin and Zosyn Pneumococcal and Legionella urinary antigens negative Sputum culture negative S/p thoracentesis Fluid growing Fusobacterium and anaerobic gram positive Maintain oxygen saturation above 88%, DuoNeb and Mucinex ID consulted, appreciate recs Large right pleural effusion Status post thoracentesis pending cytology report Appreciate input from pulmonary medicine , as pleural effusion has multiple septations therefore cannot be completely aspirated percutaneously Cardiothoracic surgery plan for VATS + decortication August 14, 2017 Continue with Zosyn, Vancomycin and vancomycin Pleural fluid culture positive for anaerobic gram-positive cocci, Fusobacterium species Tumor markers negative Anorexia/weight loss Patient with complicated abdominal surgeries for unclear reasons as he is a poor historian, medical records requested from the [place] [facility] of the abdomen/pelvis noted Tumor markers including AFP, CA 19 9, CEA, LDH all negative Normochromic normocytic anemia H&H stable and continue to monitor Thrombocytosis Likely 2/2 current infectious process, continue to monitor Hyperlipidemia/coronary artery disease Continue home medications once reconciled Hepatitis C Follow-up as an outpatient Chronic pain On Suboxone at home Morphine for pain Depression /anxiety: Consult psychiatry. Start Ativan 0.5 mg po q8hrs prn. Went for VATS by Dr Montez 08/14/[address] with serosanguineous fluid. Also consult palliative care for goals of care DC when improved and cleared by consultants. Discussed with the patient, nurse Jacinda Garza MD Aug 17, 2017 10:19
[2017-08-17] MEDS ORDERED: POTASSIUM CHLORIDE 10 MEQ CONTROLLED RELEASE TAB PO ONE (10:30)
[2017-08-17] MEDS: HEPARIN SODIUM - SQ 10,000 UNITS/ML VIAL SQ SCH ×2 (11:36→23:00)
--- NOTE | 2017-08-17 12:27 | HHI.FF ---
Infusion Therapy Location of Infusion Therapy: Home [facility] Care IV Infusion Order Patient Information Patient Weight 67 kg Diagnosis: (1) Loculated empyema Coded Allergies: baclofen (Verified Allergy, Unknown, Seizures, 08/14/17) Administer Medication Unasyn 3 grams IV Q6H Stop Treatment: Sep 20, 2017 Additional Information Venous access: PICC Line Additional Instructions [x] Peripheral flush and dressing changes per protocol [x] Implanted port and central furnace reliner: * Implanted port: 10 ml Normal Saline followed by 5 ml Heparin 100 units/ml Heparin flush after each use and monthly to maintain. [] May leave port accessed during therapy. [] May leave peripheral site accessed for duration of therapy. [x] If patient has SOB or respiratory distress, check oxygen saturation. If less than 90% or clinical signs of respiratory distress, administer oxygen at 2 L/min. via nasal cannula and notify physician. [x] Anaphylaxis/Reaction orders: * Stop infusion. * Keep IV line open with saline flush. * Notify physician. * Monitor vital signs every 15 minutes until symptoms resolve. * Check Oxygen saturation; Oxygen at 2 L/min. via nasal cannula if less than 90% or clinical signs of respiratory distress. * Administer diphenhydramine (Benadryl) 25 mg IV STAT, (unless patient has received as pre-med). May repeat once, if necessary. * Solu-Cortef 250 mg IVP over 30-60 seconds, use 100 mg vials for each dissolution. * Epinephrine (1mg/1 ml) 0.3 mg subcutaneously or IVP now with any signs of respiratory distress. * Check with physician for new additional pre-med orders if patient is re- challenged or re-treated. [x] May remove PICC line when treatment complete, after confirming with Physician. [x] If the patient is admitted to the hospital, the ED, or transferred via [facility] , complete transfer form including medication reconciliation order sheet. Laboratory Tests Weekly Labs: BMP, CBC w/diff Additional Information Follow up with ID Dr Crocker one week after discharge. Ruddy Cast MD Aug 17, 2017 12:27
[2017-08-17] MEDS ORDERED: POTASSIUM CHLORIDE 20 MEQ CONTROLLED RELEASE TAB PO ONE (12:30)
[2017-08-17] MEDS ORDERED: FUROSEMIDE 40 MG/4 ML VIAL IV PUSH ONE (12:30)
--- NOTE | 2017-08-17 12:34 | HHI.IDPN ---
Note Infectious Disease Note Patient feels better. Gets mild right chest pain with deep inspiration. Pleural fluid surgical culture repeat has no growth. White blood cell count is normal. Afebrile. 66-year-old white male who presented to the emergency department on 08/08/2017 with weakness and abnormal lab work. The patient had lab work at the [facility] and his white count was elevated at 29,000. He was complaining of worsening shortness of breath over the past 6 weeks. The patient was afebrile on admission. PAST MEDICAL HISTORY: 1. Coronary artery disease. 2. Hepatitis C. 3. Fibromyalgia. 4. History of neck fusion. 5. History of low back surgery. 6. Vagotomy. 7. History of cardiac catheterization with stent placement x 1. 8. Unspecified gastric surgery. 9. 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 ALLERGIES: BACLOFEN. MEDICATIONS: Current Medications Medications (Trade) Dose Ordered Sig/Alejandro Route PRN Reason Start Time Stop Time Status Last Admin Dose Admin Albuterol/ Ipratropium (Duoneb Neb) 1 ampule Q4HR NEB PRN NEB SOB/Wheezing 08/08/17 22:30 08/14/17 04:03 Acetaminophen (Tylenol) 650 mg Q4H PRN PO TEMP > 100.4 08/08/17 22:30 Ondansetron HCl (Zofran Odt) 4 mg Q6H PRN PO NAUSEA/VOMITING 08/08/17 22:45 08/15/17 21:28 Heparin Sodium (Porcine) (Heparin Inj) 5,000 units Q12H SQ 08/08/17 23:00 08/17/17 11:36 Naloxone HCl (Narcan Inj) 0.4 mg UNSCH PRN IV PUSH SEE LABEL COMMENTS 08/08/17 22:30 Bisacodyl (Dulcolax Supp) 10 mg DAILY PRN RECTAL SEVERE CONSITIPATION 08/08/17 22:30 Lactulose (Lactulose Liq) 30 ml DAILY PRN PO SEVERE CONSITIPATION 08/08/17 22:30 Guaifenesin (Mucinex Er) 600 mg BID PO 08/09/17 21:00 08/17/17 08:38 Cefazolin Sodium 500 mg/Sodium Chloride 505 ml @ 0 mls/hr WHEEL MOLDER IRRIGATION 08/11/17 14:15 08/18/17 14:14 Cefazolin Sodium/ Dextrose 50 ml @ 150 mls/hr WHEEL MOLDER IV 08/11/17 14:15 08/18/17 14:14 Albuterol Sulfate (Albuterol Neb) 2.5 mg Q6HR NEB NEB 08/14/17 16:00 08/17/17 09:59 Albuterol Sulfate (Albuterol Neb) 2.5 mg Q2HR NEB PRN NEB WHEEZING 08/14/17 14:30 Sodium Chloride (NS Flush) 2 ml BID IV FLUSH 08/14/17 21:00 08/17/17 08:37 Sodium Chloride (NS Flush) 2 ml UNSCH PRN IV FLUSH FLUSH AFTER USING IV ACCESS 08/14/17 14:30 Pantoprazole Sodium (Protonix) 40 mg HS PO 08/14/17 21:00 08/14/17 21:25 Magnesium Hydroxide (Milk Of Magnesia Liq) 30 ml DAILY PRN PO MILD CONSTIPATION 08/14/17 14:30 08/16/17 10:52 Acetaminophen (Tylenol) 650 mg Q4H PRN PO TEMPERATURE > 101 F 08/14/17 14:30 Naloxone HCl (Narcan Inj) 0.4 mg UNSCH PRN IV PUSH RESPIRATORY RATE LESS THAN 10 08/14/17 14:30 Morphine Sulfate (Morphine 1 Mg/ ml TRANSLATOR AND INTERPRETER) 30 mg UNSCH IV 08/14/17 14:30 08/16/17 22:18 TRANSLATOR AND INTERPRETER Dosage Infused (Pha) 1 Q8HR .XX 08/14/17 22:00 08/17/17 06:00 Ampicillin Sodium/ Sulbactam Sodium 3 gm/Sodium Chloride 100 ml @ 200 mls/hr Q6H IV 08/15/17 12:00 08/17/17 06:00 Dextrose (D50w (Vial) Inj) 50 ml UNSCH PRN IV PUSH HYPOGLYCEMIA-SEE COMMENTS 08/16/17 10:15 Glucagon (Glucagon Inj) 1 mg UNSCH PRN OTHER HYPOGLYCEMIA-SEE COMMENTS 08/16/17 10:15 Docusate Sodium (Colace) 100 mg BID PO 08/16/17 10:30 08/17/17 08:38 Polyethylene Glycol (Miralax) 17 gm DAILY PO 08/16/17 10:30 Mirtazapine (Remeron) 15 mg HS PO 08/16/17 21:00 Lorazepam (Ativan) 0.5 mg Q8H PRN PO anxiety 08/16/17 13:45 08/16/17 13:55 Furosemide (Lasix Inj) 40 mg ONCE ONCE IV PUSH 08/17/17 12:30 08/17/17 12:31 Potassium Chloride (KCl) 20 meq ONCE ONCE PO 08/17/17 12:30 08/17/17 12:31 SOCIAL HISTORY: The patient smokes a pack of cigarettes a day. Denies alcohol. Denies illicit drugs. He resides with his and grandson. OBJECTIVE: Vital Signs Date Time Temp Pulse Resp B/P (MAP) Pulse Ox O2 Delivery O2 Flow Rate FiO2 08/17/17 11:42 98.0 73 18 129/63 (85) 93 08/17/17 10:00 93 Nasal Cannula 21 08/17/17 08:30 97.9 70 18 162/74 (103) 95 08/17/17 06:37 59 08/17/17 06:00 16 08/17/17 05:00 54 08/17/17 04:00 56 08/17/17 04:00 97.9 56 16 128/75 (92) 94 08/17/17 03:00 62 08/17/17 02:00 56 08/17/17 01:00 56 08/17/17 00:00 56 08/17/17 00:00 97.8 56 16 125/63 (83) 93 08/16/17 23:00 55 08/16/17 22:18 16 08/16/17 22:00 54 08/16/17 22:00 16 08/16/17 21:00 54 08/16/17 20:00 50 08/16/17 20:00 97.8 57 16 150/71 (97) 95 08/16/17 19:00 65 08/16/17 18:00 53 08/16/17 17:00 64 08/16/17 16:00 51 08/16/17 15:30 98.0 58 17 141/65 (90) 94 08/16/17 15:00 62 08/16/17 14:00 72 08/16/17 13:57 17 08/16/17 13:00 52 Laboratory Tests Test 08/16/17 05:01 08/17/17 04:20 White Blood Count 12.5 TH/MM3 9.7 TH/MM3 Red Blood Count 2.92 MIL/MM3 3.03 MIL/MM3 Hemoglobin 8.6 GM/DL 8.8 GM/DL Hematocrit 25.5 % 26.1 % Mean Corpuscular Volume 87.4 FL 86.1 FL Mean Corpuscular Hemoglobin 29.5 PG 29.0 PG Mean Corpuscular Hemoglobin Concent 33.7 % 33.7 % Red Cell Distribution Width 15.0 % 15.2 % Platelet Count 572 TH/MM3 627 TH/MM3 Mean Platelet Volume 7.4 FL 7.2 FL Neutrophils (%) (Auto) 80.9 % 68.6 % Lymphocytes (%) (Auto) 9.0 % 14.2 % Monocytes (%) (Auto) 5.8 % 7.3 % Eosinophils (%) (Auto) 3.7 % 8.8 % Basophils (%) (Auto) 0.6 % 1.1 % Neutrophils # (Auto) 10.1 TH/MM3 6.7 TH/MM3 Lymphocytes # (Auto) 1.1 TH/MM3 1.4 TH/MM3 Monocytes # (Auto) 0.7 TH/MM3 0.7 TH/MM3 Eosinophils # (Auto) 0.5 TH/MM3 0.9 TH/MM3 Basophils # (Auto) 0.1 TH/MM3 0.1 TH/MM3 CBC Comment DIFF FINAL DIFF FINAL Differential Comment Laboratory Tests Test 08/16/17 05:01 08/17/17 04:20 Blood Urea Nitrogen 8 MG/DL 7 MG/DL Creatinine 0.58 MG/DL 0.49 MG/DL Random Glucose 88 MG/DL 78 MG/DL Calcium Level 7.8 MG/DL 7.6 MG/DL Magnesium Level 2.3 MG/DL Sodium Level 139 MEQ/L 141 MEQ/L Potassium Level 3.4 MEQ/L 3.5 MEQ/L Chloride Level 104 MEQ/L 105 MEQ/L Carbon Dioxide Level 27.1 MEQ/L 29.3 MEQ/L Anion Gap 8 MEQ/L 7 MEQ/L Estimat Glomerular Filtration Rate 141 ML/MIN 171 ML/MIN Microbiology Date/Time Source Procedure Growth Status 08/14/17 14:55 Fluid Pleural Fluid Fungal Smear - Final NO FUNGAL ELEMENTS SEEN. Resulted 08/14/17 14:55 Fluid Pleural Fluid Fungal Culture Pending Resulted 08/14/17 14:55 Fluid Pleural Fluid Acid Fast Stain - Final NO ACID FAST BACILLI SEEN Resulted 08/14/17 14:55 Fluid Pleural Fluid Mycobacterial Culture Pending Resulted 08/14/17 14:55 Fluid Pleural Fluid Gram Stain - Final Complete 08/14/17 14:55 Fluid Pleural Fluid Body Fluid Culture - Final NO GROWTH IN 72 HRS.--AEROBICALLY OR ... Complete 08/14/17 14:55 Fluid Pleural Fluid Fungal Smear - Final NO FUNGAL ELEMENTS SEEN. Resulted 08/14/17 14:55 Fluid Pleural Fluid Fungal Culture Pending Resulted 08/14/17 14:55 Fluid Pleural Fluid Acid Fast Stain - Final NO ACID FAST BACILLI SEEN Resulted 08/14/17 14:55 Fluid Pleural Fluid Mycobacterial Culture Pending Resulted 08/14/17 14:55 Fluid Prostatic Fluid Gram Stain - Final Complete 08/14/17 14:55 Fluid Prostatic Fluid Body Fluid Culture - Final NO GROWTH IN 72 HRS.--AEROBICALLY OR ... Complete IMAGING: Chest X-Ray 08/15/17 0500 Signed Impressions: CONCLUSION: No significant interval change. Small right pleural effusion and small right pn eumothorax. Right-sided chest tube remains in place. Thoracentesis Ultrasound 08/09/17 0000 Signed Impressions: CONCLUSION: Uncomplicated right thoracentesis. As described above, the pleural effusion is complex containing multiple septations preventing complete evacuation. Abdomen/Pelvis CT 08/09/17 Signed Impressions: CONCLUSION: 1. Loculated pleural effusion and associated right lower lobe consolidation ar e unchanged from yesterday's exam. 2. Trace amount of free fluid within the pelvis. 3. No acute abnormality. Chest CT 08/08/17 Signed Impressions: CONCLUSION: 1. Large right effusion and consolidation. 2. Granulomatous disease is noted as above. PHYSICAL EXAMINATION: GENERAL: Alert. HEENT: Head atraumatic. Pupils reactive to light without icterus. No conjunctival erythema. Oropharynx, moist mucosa. NECK: Supple without adenopathy. LUNGS: Rhonchi at the right lung base. CHEST: Chest tube in place has serous drainage. HEART: Regular S1 and S2, with distant sounds. No audible murmur. ABDOMEN: Bowel sounds present, soft, no tenderness. EXTREMITIES: No clubbing, cyanosis or edema. SKIN: No diffuse rash. NEUROLOGIC: No gross focal finding. PSYCHIATRIC: Calm, mellow and cooperative. IMPRESSION: 1. Empyema of the right lung. Previous culture on 08/09/2017 revealed Fusobacterium species and anaerobic gram-positive cocci. The patient is status post decortication by video-assisted thoracoscopy. New culture pending. 2. Leukocytosis. Improved. RECOMMENDATIONS: 1. Continue Unasyn. 2. Monitor clinical status. Plan on 6 weeks of IV antibiotics for discharge when cleared by Cardiothoracic surgery. PIC line ordered. Ruddy Cast MD Aug 17, 2017 12:34
--- NOTE | 2017-08-17 12:51 | HHI.PYPN ---
Subjective Remarks I have seen this patient today for psychiatric reevaluation. Case also discussed with nursing charge a medical student Rosa. On psychiatric evaluation the patient seems to have a brighter affect today, and to be in a better spirit than yesterday. He says that he is more comfortable the medical doctor spent some time with pain explaining him the situation, even though he is not happy with staying in the hospital. He reports better sleep last night, continues to be irritable, mullins, but he denies suicidal and homicidal ideation , visual and auditory hallucinations. Is fully oriented 3. No agitation or aggressive behavior. Review of Systems Psychiatric: COMPLAINS OF: Mood changes Except as stated in HPI: all other systems reviewed are Neg Mental Status Examination Appearance: Appropriate Consciousness: Alert Orientation: x4 Motor Activity: Normal gait Speech: Unremarkable Language: Adequate Fund of Knowledge: Adequate Attention and Concentration: Adequate Memory: Unremarkable Mood: Angry, Sad Affect: Irritable Thought Process & Associations: Intact Thought Content: Appropriate Hallucination Type: None Delusion Type: None Suicidal Ideation: No Suicidal Plan: No Suicidal Intention: No Homicidal Ideation: No Homicidal Plan: No Homicidal Intention: No Insight: Fair Judgment: Impulsive Results Labs Test 08/17/17 04:20 White Blood Count 9.7 TH/MM3 Red Blood Count 3.03 MIL/MM3 Hemoglobin 8.8 GM/DL Hematocrit 26.1 % Mean Corpuscular Volume 86.1 FL Mean Corpuscular Hemoglobin 29.0 PG Mean Corpuscular Hemoglobin Concent 33.7 % Red Cell Distribution Width 15.2 % Platelet Count 627 TH/MM3 Mean Platelet Volume 7.2 FL Neutrophils (%) (Auto) 68.6 % Lymphocytes (%) (Auto) 14.2 % Monocytes (%) (Auto) 7.3 % Eosinophils (%) (Auto) 8.8 % Basophils (%) (Auto) 1.1 % Neutrophils # (Auto) 6.7 TH/MM3 Lymphocytes # (Auto) 1.4 TH/MM3 Monocytes # (Auto) 0.7 TH/MM3 Eosinophils # (Auto) 0.9 TH/MM3 Basophils # (Auto) 0.1 TH/MM3 CBC Comment DIFF FINAL Differential Comment Blood Urea Nitrogen 7 MG/DL Creatinine 0.49 MG/DL Random Glucose 78 MG/DL Calcium Level 7.6 MG/DL Sodium Level 141 MEQ/L Potassium Level 3.5 MEQ/L Chloride Level 105 MEQ/L Carbon Dioxide Level 29.3 MEQ/L Anion Gap 7 MEQ/L Estimat Glomerular Filtration Rate 171 ML/MIN Date/Time Source Procedure Growth Status 08/08/17 18:38 Blood Peripheral Aerobic Blood Culture - Final NO GROWTH IN 5 DAYS Complete 08/08/17 18:38 Blood Peripheral Anaerobic Blood Culture - Final NO GROWTH IN 5 DAYS Complete 08/14/17 14:55 Fluid Pleural Fluid Fungal Smear - Final NO FUNGAL ELEMENTS SEEN. Resulted 08/14/17 14:55 Fluid Pleural Fluid Fungal Culture Pending Resulted 08/09/17 18:00 Sputum Expectorated Sputum Gram Stain - Final Complete 08/09/17 18:00 Sputum Expectorated Sputum Sputum Culture - Final HEAVY GROWTH NORMAL RESPIRATORY MANDI Complete 08/09/17 18:00 Urine Clean Catch Legionella Antigen - Final PRESUMPTIVE NEGATIVE FOR LEGIONELLA P... Complete 08/09/17 18:00 Urine Clean Catch Streptococcus pneumoniae Antigen (M - Final PRESUMPTIVE NEGATIVE FOR STREPTOCOCCU... Complete Vitals/IOs Vital Signs Date Time Temp Pulse Resp B/P (MAP) Pulse Ox O2 Delivery O2 Flow Rate FiO2 08/17/17 11:42 98.0 73 18 129/63 (85) 93 08/17/17 10:00 Nasal Cannula 21 08/15/17 19:20 2.00 Intake and Output 08/17/17 08/17/17 08/18/17 08:00 16:00 00:00 Intake Total 240 ml Output Total 1160 ml Balance -920 ml Assessment & Plan Problem List: (1) Adjustment disorder with mixed anxiety and depressed mood ICD Codes: F43.23 - Adjustment disorder with mixed anxiety and depressed mood Assessment & Plan: The patient was visited today for reevaluation, seems to be in a better mood today, reported better sleep last night. Continue Remeron 15 mg. Brief supportive psychotherapy provided. Assessment & Plan Estimated LOS: days Justification for Cont. Inpt. No indication for psychiatric admission at this moment. Darren Crenshaw MD Aug 17, 2017 12:51
--- NOTE | 2017-08-17 12:55 | HHI.PR ---
Subjective Remarks He is Post Op right Vats thoracotomy and decortication..On IV Unasyn Wants to go home.. Feels better today. No fever.Chest tube has less drainage. Pleural fluid has Fusobacterium. Off O2. Objective Vital Signs Date Time Temp Pulse Resp B/P (MAP) Pulse Ox O2 Delivery O2 Flow Rate FiO2 08/17/17 11:42 98.0 73 18 129/63 (85) 93 08/17/17 10:00 93 Nasal Cannula 21 08/17/17 08:30 97.9 70 18 162/74 (103) 95 08/17/17 06:37 59 08/17/17 06:00 16 08/17/17 05:00 54 08/17/17 04:00 56 08/17/17 04:00 97.9 56 16 128/75 (92) 94 08/17/17 03:00 62 08/17/17 02:00 56 08/17/17 01:00 56 08/17/17 00:00 56 08/17/17 00:00 97.8 56 16 125/63 (83) 93 08/16/17 23:00 55 08/16/17 22:18 16 08/16/17 22:00 54 08/16/17 22:00 16 08/16/17 21:00 54 08/16/17 20:00 50 08/16/17 20:00 97.8 57 16 150/71 (97) 95 08/16/17 19:00 65 08/16/17 18:00 53 08/16/17 17:00 64 08/16/17 16:00 51 08/16/17 15:30 98.0 58 17 141/65 (90) 94 08/16/17 15:00 62 08/16/17 14:00 72 08/16/17 13:57 17 08/16/17 13:00 52 I/O 08/16/17 08/16/17 08/16/17 08/17/17 08/17/17 08/17/17 07:00 15:00 23:00 07:00 15:00 23:00 Intake Total 600 ml 346 ml 939 ml 240 ml Output Total 505 ml 800 ml 1160 ml Balance 95 ml 346 ml 139 ml -920 ml Intake Oral 600 ml 840 ml 240 ml IV Total 346 ml 99 ml Output Urine Total 325 ml 650 ml 1000 ml Stool Total 0 ml Chest Tube Drainage Total 180 ml 150 ml 160 ml # Bowel Movements 0 Result Diagram: 08/17/1741908/17/17419 Objective Remarks GENERAL: This is an averagely, elderly man who is in the bed, pale, in no acute distress. HEENT: Head is normocephalic. Pupils are reactive. Tongue is moist. Nasal mucosa edematous. Throat is clear. NECK: Supple, no bruits or thyroid enlargement. LUNGS: There are decreased breath sounds over the right mid and lower chest . Few Crackles. HEART: The heart sounds are regular S1 and S2 with no murmur. No S3 gallop. ABDOMEN: Soft and nontender. No organomegaly. Bowel sounds are active. EXTREMITIES: No lesions, no edema. NEUROLOGIC: Reflexes are 1+ with no gross motor deficits. RECTAL: Deferred. SKIN: No lesions observed. Assessment and Plan Assessment and Plan ASSESSMENT: 1. Large loculated right pleural effusion, etiology undetermined, possible empyema and underlying pneumonia. 2. Chronic obstructive pulmonary disease. 3. Hyperlipidemia and coronary artery disease. 4. S/P Decortication right chest 5. History of hepatitis C. 6. Chronic back pain. Plan : 1. Continue antibiotics.per ID 2. D/C O2 3. Nebs qid , duoneb 4. IS Q2H. bedside 5. CXR ,BMP in am. 6. Symbicort 160/4.5 mcg , 2puffs BID 7. Chest tube to water seal in am. Kevin Myles MD Aug 17, 2017 12:55
--- NOTE | 2017-08-17 14:13 | HHI.HCPN ---
Reason for visit a. To assist with evaluation and management of symptoms including: pain, depression b. To assist medical decision maker(s) with: better understanding of current medical conditions; weighing benefits/burdens of medical treatment options; making medical treatment decisions. . Subjective/Interval History Pt's goals of care is to go home with IV antibiotics. Patient reaffirms he does not want to , and his goals are not comfort measures only. He endorses pain 6/10 of his lower back, shoulders, and hips. He says it is constant. He is vague states "I just feel enough pain, where I don't want to do anything, or get up to go to the store." He did not elaborate any more in terms of assoicated symptoms. As outpatient he states before he gets here, he states he takes suboxone 8 mg BID. He states he is compliant, and he does not take any other opiates with that. He denies any discomfort with nausea or vomiting, as currently he is taking morphine LPN INSTRUCTOR. Family/friend interactions no family present. Advance Directives Health Care Surrogate: Copy in medical record Advance Directive Specifics Date completed: 08/16/2017 . Health Care Surrogate(s): Patient has designated his daughter, Leonor Mcdaniel, as his healthcare surrogate decision maker. . Documented care wishes: Copies of the healthcare surrogate designation form completed on 08/16/2017 were placed in the patient's paper chart and faxed to HIM to be scanned into the EMR. Patient was given the original document. Living will form was left for the patient to review. . Objective Vital Signs Date Time Temp Pulse Resp B/P (MAP) Pulse Ox O2 Delivery O2 Flow Rate FiO2 08/17/17 13:01 72 08/17/17 12:00 72 08/17/17 11:42 98.0 73 18 129/63 (85) 93 08/17/17 11:00 70 08/17/17 10:00 93 Nasal Cannula 21 08/17/17 10:00 60 08/17/17 09:00 68 08/17/17 08:30 97.9 70 18 162/74 (103) 95 08/17/17 08:00 66 08/17/17 07:00 58 08/17/17 06:37 59 08/17/17 06:00 16 08/17/17 05:00 54 08/17/17 04:00 56 08/17/17 04:00 97.9 56 16 128/75 (92) 94 08/17/17 03:00 62 08/17/17 02:00 56 08/17/17 01:00 56 08/17/17 00:00 56 08/17/17 00:00 97.8 56 16 125/63 (83) 93 08/16/17 23:00 55 08/16/17 22:18 16 08/16/17 22:00 54 08/16/17 22:00 16 08/16/17 21:00 54 08/16/17 20:00 50 08/16/17 20:00 97.8 57 16 150/71 (97) 95 08/16/17 19:00 65 08/16/17 18:00 53 08/16/17 17:00 64 08/16/17 16:00 51 08/16/17 15:30 98.0 58 17 141/65 (90) 94 08/16/17 15:00 62 08/16/17 14:00 72 08/16/17 13:57 17 Intake & Output 08/17/17 08/17/17 07:00 19:00 Intake Total 240 ml Output Total 1160 ml Balance -920 ml Intake Oral 240 ml Output Urine Total 1000 ml Stool Total 0 ml Chest Tube Drainage Total 160 ml Physical Exam CONSTITUTIONAL/GENERAL: This is an adequately nourished patient, in no apparent distress. TUBES/LINES/DRAINS: SKIN: No jaundice, rashes, or lesions. Ecchymoses on upper extremities. No wounds seen anteriorly. Skin temperature appropriate. Not diaphoretic. HEAD: Atraumatic. Normocephalic. EYES: Pupils equal and round and reactive. Extraocular motions intact. No scleral icterus. No injection or drainage. Fundi not examined. ENT: Hearing grossly normal. Nose without bleeding or purulent drainage. Throat without visible erythema, exudates, masses, or lesions. NECK: Trachea midline. Supple, nontender. No palpable thyroid enlargement or nodularity. CARDIOVASCULAR: Regular rate and rhythm without murmurs, gallops, or rubs. No JVD. Peripheral pulses symmetric. RESPIRATORY/CHEST: Symmetric, unlabored respirations. Clear to auscultation. Breath sounds equal bilaterally. No wheezes, rales, or rhonchi. GASTROINTESTINAL: Abdomen soft, non-tender, nondistended. No hepato-splenomegaly , or palpable masses. No guarding. Bowel sounds present. GENITOURINARY: Without palpable bladder distension. Siegel catheter in place. MUSCULOSKELETAL: Extremities without clubbing, cyanosis, or edema. No joint tenderness or effusion noted. No calf tenderness. No mottling or clubbing. LYMPHATICS: No palpable cervical or supraclavicular adenopathy. NEUROLOGICAL: Awake and alert. Motor and sensory grossly within normal limits. Follows commands. Cognitively sharp. Moves all extremities. PSYCHIATRIC: No obvious anxiety/depression. no apparent hallucinations or other psychotic thought process. Diagnostic Tests Laboratory Laboratory Tests Test 08/15/17 04:58 08/16/17 05:01 08/17/17 04:20 White Blood Count 18.7 TH/MM3 (4.0-11.0) 12.5 TH/MM3 (4.0-11.0) 9.7 TH/MM3 (4.0-11.0) Red Blood Count 3.03 MIL/MM3 (4.50-5.90) 2.92 MIL/MM3 (4.50-5.90) 3.03 MIL/MM3 (4.50-5.90) Hemoglobin 8.8 GM/DL (13.0-17.0) 8.6 GM/DL (13.0-17.0) 8.8 GM/DL (13.0-17.0) Hematocrit 26.2 % (39.0-51.0) 25.5 % (39.0-51.0) 26.1 % (39.0-51.0) Mean Corpuscular Volume 86.5 FL (80.0-100.0) 87.4 FL (80.0-100.0) 86.1 FL (80.0-100.0) Mean Corpuscular Hemoglobin 28.9 PG (27.0-34.0) 29.5 PG (27.0-34.0) 29.0 PG (27.0-34.0) Mean Corpuscular Hemoglobin Concent 33.4 % (32.0-36.0) 33.7 % (32.0-36.0) 33.7 % (32.0-36.0) Red Cell Distribution Width 14.8 % (11.6-17.2) 15.0 % (11.6-17.2) 15.2 % (11.6-17.2) Platelet Count 600 TH/MM3 (150-450) 572 TH/MM3 (150-450) 627 TH/MM3 (150-450) Mean Platelet Volume 7.3 FL (7.0-11.0) 7.4 FL (7.0-11.0) 7.2 FL (7.0-11.0) Neutrophils (%) (Auto) 92.2 % (16.0-70.0) 80.9 % (16.0-70.0) 68.6 % (16.0-70.0) Lymphocytes (%) (Auto) 4.8 % (9.0-44.0) 9.0 % (9.0-44.0) 14.2 % (9.0-44.0) Monocytes (%) (Auto) 2.7 % (0.0-8.0) 5.8 % (0.0-8.0) 7.3 % (0.0-8.0) Eosinophils (%) (Auto) 0.1 % (0.0-4.0) 3.7 % (0.0-4.0) 8.8 % (0.0-4.0) Basophils (%) (Auto) 0.2 % (0.0-2.0) 0.6 % (0.0-2.0) 1.1 % (0.0-2.0) Neutrophils # (Auto) 17.2 TH/MM3 (1.8-7.7) 10.1 TH/MM3 (1.8-7.7) 6.7 TH/MM3 (1.8-7.7) Lymphocytes # (Auto) 0.9 TH/MM3 (1.0-4.8) 1.1 TH/MM3 (1.0-4.8) 1.4 TH/MM3 (1.0-4.8) Monocytes # (Auto) 0.5 TH/MM3 (0-0.9) 0.7 TH/MM3 (0-0.9) 0.7 TH/MM3 (0-0.9) Eosinophils # (Auto) 0.0 TH/MM3 (0-0.4) 0.5 TH/MM3 (0-0.4) 0.9 TH/MM3 (0-0.4) Basophils # (Auto) 0.0 TH/MM3 (0-0.2) 0.1 TH/MM3 (0-0.2) 0.1 TH/MM3 (0-0.2) CBC Comment DIFF FINAL DIFF FINAL DIFF FINAL Differential Comment Blood Urea Nitrogen 7 MG/DL (7-18) 8 MG/DL (7-18) 7 MG/DL (7-18) Creatinine 0.61 MG/DL (0.60-1.30) 0.58 MG/DL (0.60-1.30) 0.49 MG/DL (0.60-1.30) Random Glucose 149 MG/DL (74-106) 88 MG/DL (74-106) 78 MG/DL (74-106) Calcium Level 8.0 MG/DL (8.5-10.1) 7.8 MG/DL (8.5-10.1) 7.6 MG/DL (8.5-10.1) Sodium Level 136 MEQ/L (136-145) 139 MEQ/L (136-145) 141 MEQ/L (136-145) Potassium Level 3.6 MEQ/L (3.5-5.1) 3.4 MEQ/L (3.5-5.1) 3.5 MEQ/L (3.5-5.1) Chloride Level 101 MEQ/L (98-107) 104 MEQ/L (98-107) 105 MEQ/L (98-107) Carbon Dioxide Level 26.0 MEQ/L (21.0-32.0) 27.1 MEQ/L (21.0-32.0) 29.3 MEQ/L (21.0-32.0) Anion Gap 9 MEQ/L (5-15) 8 MEQ/L (5-15) 7 MEQ/L (5-15) Estimat Glomerular Filtration Rate 133 ML/MIN (>89) 141 ML/MIN (>89) 171 ML/MIN (>89) Magnesium Level 2.3 MG/DL (1.5-2.5) Result Diagram: 08/17/17 0420 08/17/17 0420 Microbiology Microbiology Date/Time Source Procedure Growth Status 08/14/17 14:55 Fluid Pleural Fluid Fungal Smear - Final NO FUNGAL ELEMENTS SEEN. Resulted 08/14/17 14:55 Fluid Pleural Fluid Fungal Culture Pending Resulted 08/14/17 14:55 Fluid Pleural Fluid Acid Fast Stain - Final NO ACID FAST BACILLI SEEN Resulted 08/14/17 14:55 Fluid Pleural Fluid Mycobacterial Culture Pending Resulted 08/14/17 14:55 Fluid Pleural Fluid Gram Stain - Final Complete 08/14/17 14:55 Fluid Pleural Fluid Body Fluid Culture - Final NO GROWTH IN 72 HRS.--AEROBICALLY OR ... Complete 08/14/17 14:55 Fluid Pleural Fluid Fungal Smear - Final NO FUNGAL ELEMENTS SEEN. Resulted 08/14/17 14:55 Fluid Pleural Fluid Fungal Culture Pending Resulted 08/14/17 14:55 Fluid Pleural Fluid Acid Fast Stain - Final NO ACID FAST BACILLI SEEN Resulted 08/14/17 14:55 Fluid Pleural Fluid Mycobacterial Culture Pending Resulted 08/14/17 14:55 Fluid Prostatic Fluid Gram Stain - Final Complete 08/14/17 14:55 Fluid Prostatic Fluid Body Fluid Culture - Final NO GROWTH IN 72 HRS.--AEROBICALLY OR ... Complete Imaging Last Impressions Chest X-Ray 08/15/17 0500 Signed Impressions: CONCLUSION: No significant interval change. Small right pleural effusion and small right pn eumothorax. Right-sided chest tube remains in place. Thoracentesis Ultrasound 08/09/17 0000 Signed Impressions: CONCLUSION: Uncomplicated right thoracentesis. As described above, the pleural effusion is complex containing multiple septations preventing complete evacuation. Abdomen/Pelvis CT 08/09/17 0000 Signed Impressions: CONCLUSION: 1. Loculated pleural effusion and associated right lower lobe consolidation ar e unchanged from yesterday's exam. 2. Trace amount of free fluid within the pelvis. 3. No acute abnormality. Chest CT 08/08/17 0000 Signed Impressions: CONCLUSION: 1. Large right effusion and consolidation. 2. Granulomatous disease is noted as above. Procedures 08/14/17: VATS decortication with chest tube placement . Assessment and Plan Disease Oriented Problem List: (1) PTSD (post-traumatic stress disorder) (2) Hyperlipidemia (3) Coronary artery disease (4) Fibromyalgia (5) Hepatitis C (6) Leukocytosis (7) Pleural effusion (8) Community acquired bacterial pneumonia (9) Loculated empyema (10) Right thoracoscopic exploration, drainage of pleural effusion, decortication (11) Adjustment disorder with mixed anxiety and depressed mood Symptom Scale: (1) Depression 0-10 Scale: Unable to quantify (2) Pain 0-10 Scale: Unable to quantify Pertinent Non-Medical Issues Psychosocial: Patient is originally from [place] where he lived most of his life. He has been to his (Sindhu) for approximately 43 years. Together they have 2 daughters (Zita and Jennifer). The patient states he has always dreamed of moving to [place] and was finally able to move to [place] approximately 7 weeks ago. He currently reside with his and daughter (Jennifer) as well as his 17 year old grandson (Jameson). Patient is an [employer] , 100% service-connected, with a psychiatric history of depression and PTSD Spiritual: Pending further conversations Legal: Patient completed a health care surrogate designation form that designates his daughter, Zita Mcdaniel, as the [facility] decision maker. Ethical issues impacting care: No known ethical issues impacting care at this time. . Important Contacts zahra Granados/[facility]: [phone] (Patient does not want his daughter called unless it is absolutely necessary) Sindhu Mcdaniel, : [phone] . Prognosis Patient is a 66 year male with a complex medical history. He states he has had multiple hospitalizations in the past 2 years and reports a 60lb weight loss in the past 6 months. He is currently hospitalized sepsis and pneumonia s/p thorascopic exploration with decortication. Patient will require outpatient antibiotics for approximately 6 weeks. . Code Status: Full Code Plan * FULL CODE * Decision-making: I feel patient has capacity to make medical decisions. * Patient prefers to update his family on his medical condition at this time. * Goals: Pt's goals of care is to go home with IV antibiotics. Patient reaffirms he does not want to , and his goals are not comfort measures only. * Palliative care contact information provided to the patient. * Symptom management: == Pain: Multifactoral. Status post VATS decortication on 08/14/2017; right- sided chest tube remains in place. Additional factors may include sepsis, pneumonia, invasive lines, depression, chronic pain syndromes, fibromyalgia. His opiate dependecy from is chronic pain also plays a significant factor. He states as outpatient he takes suboxone 8 mg BID. He states he is compliant, and he does not take any other opiates. Managment of suboxone is beyond the scope of practice of palliative care. He gets suboxone at the [place]. He would need to follow up with his [place] physician. Patient is currently on LPN INSTRUCTOR pump for pain, and reviewing nurse documentation, pt has received about 35 mg IV morphine the past 24 hours. that is an equivilent of 105 mg of Oral morphine equivalent. If medical team needs to switch patient to oral opiate, may consider Morphine 15 mg po q 4 hours prn for pain. or. about oxycodone 7.5 mg po q 4 hours prn pain (taking into account of cross tolerance) However weaning patient of his opiates is beyond the scope of this practice. == Depression: Patient has a known history of depression and PTSD; one previous psychiatric hospitalization 20 years ago. Defer to psychiatry. * Palliative care will continue to follow patient throughout hospitalization. Attestation To help prompt me to consider important information that might be impacting today's encounter and assessment, information from prior notes written by myself or my colleagues may have been "brought forward" into today's note. My signature on this note, however, is an attestation that I personally performed the exam, history, and/or decision-making noted today, and, unless otherwise indicated, the interactions with patient, family, and staff as well as the review of records all occurred today. I also attest that the listed assessment and stated plan reflect my best clinical judgment today based on the combination of historical information, prior notes, and today's exam/ interactions. When time spent is documented, it refers only to time spent today by the signer, or if indicated, combined time spent today by collaborating physician/nurse practitioner. Shalom Sanchez MD Aug 17, 2017 14:13
--- NOTE | 2017-08-17 15:15 | PD.CAR.PN ---
CVT Progress Note Subjective/Hospital Course: A 66-year-old male with history of coronary artery disease, hepatitis C, also fibromyalgia, hyperlipidemia, who presented to the emergency room with progressive shortness of breath over about a month. He has also had some fevers and chills, weight loss of 20 pounds in about [address] a [address] scan, which showed a large right pleural effusion with loculation, evidence of some consolidation, single granulomatous disease in the spleen as well as some mediastinal adenopathy. He denies having any recent travel. No tuberculosis. He has been followed by the [place], Dr. Donis of the [facility] team. He underwent thoracentesis where they removed about 120 mL of cloudy yellow fluid. 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 We were consulted for right video-assisted thoracoscopy with decortication. PAST MEDICAL HISTORY: Hypertension, hyperlipidemia, hepatitis C, fibromyalgia, chronic pain, history of prior cardiac catheterization with stenting, lumbar disk surgery, cervical disk fusion. surgery: 08/14 Right thoracoscopic exploration, drainage of pleural effusion, decortication 08/15 pain controlled with vp design cytology and cultures pending consult PT/ OOB leave chest tube in 08/16 pt very depressed today / psych consulted no growth in recent pleural fluid from 08/14 prior fluid : Fusobacterium on antibiotics leave chest tube in / to wall suction 08/17 chest tube drained 160cc/ 12 hrs leave chest tube in , gentle diuresis / chest tube to water seal Objective: GENERAL: A&O x 3 SKIN: Warm and dry. HEAD: Normocephalic. EYES: No scleral icterus. No injection or drainage. NECK: Supple, trachea midline. No JVD or lymphadenopathy. CARDIOVASCULAR: Regular rate and rhythm without murmurs, gallops, or rubs. RESPIRATORY: Breath sounds equal bilaterally. No accessory muscle use. chest tube right chest wall / coarse breath sounds / no air leak GASTROINTESTINAL: Abdomen soft, non-tender, nondistended. MUSCULOSKELETAL: No cyanosis, or edema. BACK: Nontender without obvious deformity. No CVA tenderness. Vital Signs Date Time Temp Pulse Resp B/P (MAP) Pulse Ox O2 Delivery O2 Flow Rate FiO2 08/17/17 14:01 69 08/17/17 14:00 18 08/17/17 13:01 72 08/17/17 12:00 72 08/17/17 11:42 98.0 73 18 129/63 (85) 93 08/17/17 11:00 70 08/17/17 10:00 93 Nasal Cannula 21 08/17/17 10:00 60 08/17/17 09:00 68 08/17/17 08:30 97.9 70 18 162/74 (103) 95 08/17/17 08:00 66 08/17/17 07:00 58 08/17/17 06:37 59 08/17/17 06:00 16 08/17/17 05:00 54 08/17/17 04:00 56 08/17/17 04:00 97.9 56 16 128/75 (92) 94 08/17/17 03:00 62 08/17/17 02:00 56 08/17/17 01:00 56 08/17/17 00:00 56 08/17/17 00:00 97.8 56 16 125/63 (83) 93 08/16/17 23:00 55 08/16/17 22:18 16 08/16/17 22:00 54 08/16/17 22:00 16 08/16/17 21:00 54 08/16/17 20:00 50 08/16/17 20:00 97.8 57 16 150/71 (97) 95 08/16/17 19:00 65 08/16/17 18:00 53 08/16/17 17:00 64 08/16/17 16:00 51 08/16/17 15:30 98.0 58 17 141/65 (90) 94 Labs: Laboratory Tests Test 08/17/17 04:20 White Blood Count 9.7 TH/MM3 (4.0-11.0) Red Blood Count 3.03 MIL/MM3 (4.50-5.90) Hemoglobin 8.8 GM/DL (13.0-17.0) Hematocrit 26.1 % (39.0-51.0) Mean Corpuscular Volume 86.1 FL (80.0-100.0) Mean Corpuscular Hemoglobin 29.0 PG (27.0-34.0) Mean Corpuscular Hemoglobin Concent 33.7 % (32.0-36.0) Red Cell Distribution Width 15.2 % (11.6-17.2) Platelet Count 627 TH/MM3 (150-450) Mean Platelet Volume 7.2 FL (7.0-11.0) Neutrophils (%) (Auto) 68.6 % (16.0-70.0) Lymphocytes (%) (Auto) 14.2 % (9.0-44.0) Monocytes (%) (Auto) 7.3 % (0.0-8.0) Eosinophils (%) (Auto) 8.8 % (0.0-4.0) Basophils (%) (Auto) 1.1 % (0.0-2.0) Neutrophils # (Auto) 6.7 TH/MM3 (1.8-7.7) Lymphocytes # (Auto) 1.4 TH/MM3 (1.0-4.8) Monocytes # (Auto) 0.7 TH/MM3 (0-0.9) Eosinophils # (Auto) 0.9 TH/MM3 (0-0.4) Basophils # (Auto) 0.1 TH/MM3 (0-0.2) CBC Comment DIFF FINAL Differential Comment Blood Urea Nitrogen 7 MG/DL (7-18) Creatinine 0.49 MG/DL (0.60-1.30) Random Glucose 78 MG/DL (74-106) Calcium Level 7.6 MG/DL (8.5-10.1) Sodium Level 141 MEQ/L (136-145) Potassium Level 3.5 MEQ/L (3.5-5.1) Chloride Level 105 MEQ/L (98-107) Carbon Dioxide Level 29.3 MEQ/L (21.0-32.0) Anion Gap 7 MEQ/L (5-15) Estimat Glomerular Filtration Rate 171 ML/MIN (>89) Result Diagram: 08/17/17 0420 08/17/17 042 (1) Pleural effusion (2) Loculated empyema (3) Right thoracoscopic exploration, drainage of pleural effusion, decortication Plan: no growth to date in current cultures cytology neg for malignant cells ID following leave chest tube in / place to water seal OOB (4) Adjustment disorder with mixed anxiety and depressed mood Plan: psych following Tyra Shipman Aug 17, 2017 15:15
[2017-08-17] MEDS: LORazepam 0.5 MG TAB PO PRN (18:27)
[2017-08-17] MEDS: MIRTAZAPINE 15 MG TAB PO SCH (21:00)
[2017-08-17] MEDS: PANTOPRAZOLE SOD 40 MG DELAYED RELEASE TAB PO SCH (21:00)
[2017-08-18] VITALS (25 sets, daily range): BP systolic 119–132; BP diastolic 61–74; PULSE 49–72; RESP 16–22; TEMP 97.9–98.9; O2SAT 93–96
[2017-08-18] MEDS: RESP: ALBUTEROL 2.5 MG/3 ML NEB (SCH) NEB ×2 (02:51→08:10)
[2017-08-18] MEDS: ONDANSETRON ODT 4 MG TAB PO PRN (03:25)
[2017-08-18] MEDS: MORPHINE SULFATE 30 MG/30 ML PCA IV SCH (03:30)
[2017-08-18] MEDS: AMPICILLIN-SULBACTAM INJ 3 GM in SODIUM CHLORIDE 0.9% INJ 100 ML IV SCH ×3 (05:35→17:19)
[2017-08-18] MEDS: PCA - TOTAL MG MORPHINE DELIVERED PER SHIFT SCH ×2 (06:00→14:00)
[2017-08-18 07:16] LABS: BICARBONATE 28.3 MEQ/L (21.0-32.0); CALCIUM 7.9 MG/DL (8.5-10.1); CREATININE 0.47 MG/DL (0.60-1.30)
[2017-08-18] MEDS ORDERED: NALOXONE HCL 0.4 MG/ML AMP IV PUSH PRN (08:00)
[2017-08-18] MEDS ORDERED: POTASSIUM CHLORIDE 10 MEQ CONTROLLED RELEASE TAB PO ONE (08:00)
[2017-08-18] MEDS ORDERED: MORPHINE SULFATE 2 MG/ML SYRINGE IV PUSH PRN (08:00)
[2017-08-18] MEDS: POLYETHYLENE GLYCOL 17 GM PKG PO SCH (08:33)
[2017-08-18] MEDS: DOCUSATE SODIUM 100 MG CAP PO SCH ×2 (08:33→21:31)
[2017-08-18] MEDS: guaiFENesin E.R. 600 MG TAB PO SCH ×2 (08:33→21:29)
[2017-08-18] MEDS: SODIUM CHLORIDE 0.9% FLUSH 10 ML FLUSH IV FLUSH SCH ×2 (08:33→21:33)
--- NOTE | 2017-08-18 08:57 | RADRPT ---
EXAM DATE: 08/18/2017 8:42 AM EDT AGE/SEX: 66 years / Male INDICATIONS: Right sided chest pain. CLINICAL DATA: This is the patient's subsequent encounter. Patient reports that signs and symptoms h ave been present for 1 week and indicates a pain score of 3/10. MEDICAL/SURGICAL HISTORY: Chronic obstructive pulmonary disease. Cardiovascular disease. Hype rcholesterolemia. . Coronary artery stent. COMPARISON: [facility] – [place], CHEST SINGLE AP, 08/15/2017. . FINDINGS: Two right-sided chest tubes are again noted and unchanged in position. A small residual right-sided p neumothorax is noted and measures 15 mm at the right lung base. Right-sided PICC line is stable. Righ t basilar patchiness is unchanged. Left lung is clear. The heart is stable. Cervical fusion hardware is again noted and stable. CONCLUSION: 1. Small residual right-sided pneumothorax measuring 15 mm at the right lung base. 2. Right basilar patchiness is stable. Electronically signed by: Jorge Ma MD 08/18/2017 8:55 AM EDT
--- NOTE | 2017-08-18 09:40 | HHI.DS ---
Discharge Summary Admission Date Aug 08, 2017 at 20:10 Discharge Date: Aug 18, 2017 Admitting Diagnosis Sepsis; PNA (1) Pleural effusion on right ICD Code: J90 - Pleural effusion, not elsewhere classified (2) Community acquired bacterial pneumonia ICD Code: J15.9 - Unspecified bacterial pneumonia Procedures Thoracentesis s/p decortication right chest on 08/14/[address] Montez Brief History - From Admission 66-year-old male with a past medical history significant for hyperlipidemia, coronary artery disease, hepatitis C, fibromyalgia and chronic pain presents to the emergency department for evaluation of shortness of breath. The patient reports she has been short of breath 1 month. He reports he has had subjective fevers/chills and a productive cough for several weeks. He also complains of a 15-20 pound weight loss over the past month secondary to anorexia. He has a complicated past medical history involving a vagotomy and unknown stomach reconstruction/bypass. The patient is a poor historian and cannot tell me further details of his procedures or past medical history. He denies any chest pain. Reports anorexia and nausea. Denies abdominal pain/ diarrhea/vomiting. No lateralizing signs/symptoms. CBC/BMP: 08/17/17 0420 08/18/17 0520 Significant Findings Laboratory Tests Test 08/16/17 05:01 08/17/17 04:20 08/18/17 05:20 White Blood Count 12.5 TH/MM3 (4.0-11.0) Red Blood Count 2.92 MIL/MM3 (4.50-5.90) 3.03 MIL/MM3 (4.50-5.90) Hemoglobin 8.6 GM/DL (13.0-17.0) 8.8 GM/DL (13.0-17.0) Hematocrit 25.5 % (39.0-51.0) 26.1 % (39.0-51.0) Platelet Count 572 TH/MM3 (150-450) 627 TH/MM3 (150-450) Neutrophils (%) (Auto) 80.9 % (16.0-70.0) Neutrophils # (Auto) 10.1 TH/MM3 (1.8-7.7) Eosinophils # (Auto) 0.5 TH/MM3 (0-0.4) 0.9 TH/MM3 (0-0.4) Creatinine 0.58 MG/DL (0.60-1.30) 0.49 MG/DL (0.60-1.30) 0.47 MG/DL (0.60-1.30) Calcium Level 7.8 MG/DL (8.5-10.1) 7.6 MG/DL (8.5-10.1) 7.9 MG/DL (8.5-10.1) Potassium Level 3.4 MEQ/L (3.5-5.1) 3.4 MEQ/L (3.5-5.1) Eosinophils (%) (Auto) 8.8 % (0.0-4.0) Blood Urea Nitrogen 5 MG/DL (7-18) Imaging Last Impressions Chest X-Ray 08/18/17 Signed Impressions: CONCLUSION: 1. Small residual right-sided pneumothorax measuring 15 mm at the right lung b ase. 2. Right basilar patchiness is stable. Thoracentesis Ultrasound 08/09/17 Signed Impressions: CONCLUSION: Uncomplicated right thoracentesis. As described above, the pleural effusion is complex containing multiple septations preventing complete evacuation. Abdomen/Pelvis CT 08/09/17 Signed Impressions: CONCLUSION: 1. Loculated pleural effusion and associated right lower lobe consolidation ar e unchanged from yesterday's exam. 2. Trace amount of free fluid within the pelvis. 3. No acute abnormality. Chest CT 08/08/17 Signed Impressions: CONCLUSION: 1. Large right effusion and consolidation. 2. Granulomatous disease is noted as above. PE at Discharge GENERAL: 66 yo male appearing older than the stated age, cachectic, chronically ill appearing however not in apparent distress. He appears sad and frustrated. CARDIOVASCULAR: Regular rate and rhythm without murmurs, gallops, or rubs. RESPIRATORY: Right back mid lateral chest tube in place, draining serosanguineous fluid Breath sounds decrease mostly on the right. No accessory muscle use. GASTROINTESTINAL: Abdomen soft, non-tender, nondistended. MUSCULOSKELETAL: No cyanosis, or edema. BACK: Nontender without obvious deformity. No CVA tenderness. Hospital Course 66-year-old man with Community-acquired bacterial pneumonia CT chest noted with finding of consolidation Currently on azithromycin and Zosyn Pneumococcal and Legionella urinary antigens negative Sputum culture negative S/p thoracentesis Fluid growing Fusobacterium and anaerobic gram positive Maintain oxygen saturation above 88%, DuoNeb and Mucinex ID consulted, appreciate recs Large right pleural effusion Status post thoracentesis pending cytology report Appreciate input from pulmonary medicine , as pleural effusion has multiple septations therefore cannot be completely aspirated percutaneously Cardiothoracic surgery plan for VATS + decortication August 14, 2017 Received Zosyn, Vancomycin and vancomycin. ABX at DC: Unasyn 3 grams IV Q6H. Stop Treatment: Sep 20, 2017. Pleural fluid culture positive for anaerobic gram-positive cocci, Fusobacterium species Tumor markers negative Anorexia/weight loss Patient with complicated abdominal surgeries for unclear reasons as he is a poor historian, medical records requested from the [place] CT of the abdomen/pelvis noted Tumor markers including AFP, CA 19 9, CEA, LDH all negative Normochromic normocytic anemia H&H stable and continue to monitor Thrombocytosis Likely 2/2 current infectious process, continue to monitor Hyperlipidemia/coronary artery disease Continue home medications once reconciled Hepatitis C Follow-up as an outpatient Chronic pain On Suboxone at home Morphine for pain Depression /anxiety: Consult psychiatry. Start Ativan 0.5 mg po q8hrs prn. Went for VATS by Dr Montez 08/14/17 had chest tube placed. Consult palliative care for goals of care , patient is full code and wants everything done. Improved significantly. ABX at DC per ID recommendations. Cleared by consultants for DC.CM also consulted for DC plan. Patient is discharged home with home health in stable condition. . Pt Condition on Discharge: Stable Discharge Disposition: Disch w/ Home Health Serv Discharge Instructions DIET: Follow Instructions for: As Tolerated, No Restrictions Activities you can perform: Regular-No Restrictions Follow up Referrals: Infectious Disease - 1 Week with Melina Crocker MD PCP Follow-up - 2 Weeks Pulmonology - 4 Weeks with Kevin Myles MD Surgical - 2 Weeks with Magalys Montez MD New Medications: Docusate Sodium (Colace) 100 Mg Capsule 100 MG PO BID for Prevent Constipation, #60 CAP 0 Refills Hydrocodone-Acetaminophen ([place]) 5 Mg-325 Mg Tab 1 TAB PO Q6H PRN for PAIN, #20 TAB 0 Refills Mirtazapine (Mirtazapine) 15 Mg Tab 15 MG PO HS for Depression Control, #30 TAB 0 Refills Continued Medications: Buprenorphine-Naloxone Sublingual Film (Suboxone Sublingual Film) 8-2 Mg Film 1 FILM SL BID, FILM Unique ID number required: Omeprazole (Omeprazole) 20 Mg Cap 20 MG PO BID Jacinda Garza MD Aug 18, 2017 09:40
[2017-08-18] MEDS ORDERED: NORC5TAB PO (09:42)
[2017-08-18] MEDS ORDERED: COLA100C5 PO (09:42)
[2017-08-18] MEDS: HEPARIN SODIUM - SQ 10,000 UNITS/ML VIAL SQ SCH (11:48)
[2017-08-18] MEDS: LORazepam 0.5 MG TAB PO PRN ×2 (12:01→21:30)
--- NOTE | 2017-08-18 13:11 | HHI.PR ---
Subjective Remarks He is Post Op right Vats thoracotomy and decortication..On IV Unasyn Feels better today.Walks in halls. No fever.Chest tube has some drainage. Pleural fluid has Fusobacterium. Off O2. Objective Vital Signs Date Time Temp Pulse Resp B/P (MAP) Pulse Ox O2 Delivery O2 Flow Rate FiO2 08/18/17 12:00 56 08/18/17 11:00 56 08/18/17 10:00 64 08/18/17 09:00 64 08/18/17 08:13 94 21 08/18/17 08:00 72 08/18/17 07:00 52 08/18/17 06:00 55 08/18/17 06:00 22 08/18/17 05:00 54 08/18/17 04:00 56 08/18/17 03:35 22 08/18/17 03:30 22 08/18/17 03:00 98.8 57 22 132/62 (85) 95 08/18/17 03:00 57 08/18/17 02:54 94 08/18/17 02:00 68 08/18/17 01:00 60 08/18/17 00:00 66 08/17/17 23:00 100.2 66 22 157/77 (103) 95 08/17/17 23:00 66 08/17/17 22:00 64 08/17/17 22:00 22 08/17/17 21:00 66 08/17/17 20:00 62 08/17/17 19:00 70 08/17/17 19:00 99.3 70 22 130/61 (84) 96 08/17/17 18:01 66 08/17/17 17:01 62 08/17/17 16:20 95 21 08/17/17 16:00 58 08/17/17 15:01 97.9 59 18 121/58 (79) 96 08/17/17 15:00 83 08/17/17 14:01 69 08/17/17 14:00 18 I/O 08/17/17 08/17/17 08/17/17 08/18/17 08/18/17 08/18/17 07:00 15:00 23:00 07:00 15:00 23:00 Intake Total 240 ml 100 ml 822 ml 240 ml Output Total 1160 ml 1945 ml 1640 ml Balance -920 ml 100 ml -1123 ml -1400 ml Intake Oral 240 ml 822 ml 240 ml IV Total 100 ml Output Urine Total 1000 ml 1775 ml 1550 ml Stool Total 0 ml Chest Tube Drainage Total 160 ml 170 ml 90 ml # Voids 5 # Bowel Movements 0 Result Diagram: 08/17/17 0420 08/18/17 0520 Objective Remarks GENERAL: This is an averagely, elderly man who is in the bed, pale, in no acute distress. HEENT: Head is normocephalic. Pupils are reactive. Tongue is moist. Nasal mucosa edematous. Throat is clear. NECK: Supple, no bruits or thyroid enlargement. LUNGS: There are decreased breath sounds over the right mid and lower chest .No Crackles. HEART: The heart sounds are regular S1 and S2 with no murmur. No S3 gallop. ABDOMEN: Soft and nontender. No organomegaly. Bowel sounds are active. EXTREMITIES: No lesions, no edema. NEUROLOGIC: Reflexes are 1+ with no gross motor deficits. RECTAL: Deferred. SKIN: No lesions observed. Assessment and Plan Assessment and Plan ASSESSMENT: 1. Large loculated right pleural effusion, etiology undetermined, possible empyema and underlying pneumonia. 2. Chronic obstructive pulmonary disease. 3. Hyperlipidemia and coronary artery disease. 4. S/P Decortication right chest 5. History of hepatitis C. 6. Chronic back pain. Plan : 1. Continue antibiotics.per ID 2. D/C O2 3. Nebs tid , duoneb 4. IS Q2H. bedside 5. CXR ,BMP in am. 6. Symbicort 160/4.5 mcg , 2puffs BID 7. Chest tube to water seal . Kevin Myles MD Aug 18, 2017 13:11
--- NOTE | 2017-08-18 14:18 | HHI.FF ---
Face to Face Verification Diagnosis: (1) Right thoracoscopic exploration, drainage of pleural effusion, decortication (2) Loculated empyema (3) PTSD (post-traumatic stress disorder) (4) Pain (5) Hepatitis C (6) Hyperlipidemia (7) Fibromyalgia (8) Depression (9) Coronary artery disease (10) Adjustment disorder with mixed anxiety and depressed mood Home Health Nursing Order: Medical education Signs/symptoms of disease process CHF education Medication education-adverse effect Nursing assessment with vital signs IV medication administration Instructions: Instructions: Thoracic Surgery patients Mandatory frequency Assess and evaluation, 2-3 x a week for one week Initial visit 1. Review post chest surgery instructions chest precautions, Activity, Elastic hose, Incision care, Driving, Incentive spirometry, Smoking, [place] , Work and other) 2. Need Betadine to paint incision 3. Medication reconciliation 4. Importance of follow up care/ check on appointments 5. Make calendar record temperature daily 6. When to call Home nurse, review instructions, phone list 7. Incentive Spirometry, demonstration Visit 1- Begin discharge instruction for patient family and/ or caregiver using teach back method- 1. Signs and symptoms of infection 2. Disease characteristics 3. Medicines and side effects 4. Foods and nutrition/ appetite 5. Infection control/ hand washing/ hygiene Visit 2- Continue teaching 1. Discharge instructions- include additional information on smoking cessation , Visit 3- Continue teaching- 1. Cough and deep breathing, incision monitoring. For any questions please call : / [facility] [phone] Incentive spirometry Q1 hr x 10, while awake, also use acapella device hourly whole Chest wall precautions: NO pushing or pulling, ( pt must use chest pillow support chest with all activities and with coughing Daily incision care: ok to shower ( 48hrs after chest tube removed) and then daily, no tub bath. Wash all incisions with liquid dial soap, clean wash cloth to each site, rinse and pat dry. Observe for any signs of infection, such as drainage which is dark yellow, mccoy, green or foul smelling. Immediately report to the surgeon any drainage from the chest incision, or legs, and for any abnormal drainage from the chest tube sites. Notify surgeon if any temp > 101.5 degrees F. When specialty dressing removed/ or if you do not have one, continue to shower daily as above, then rinse and pat incision dry and paint with betadine daily x 5 days. Allow steri strips to fall off if you have any. Avoid lotions, creams, salves, oils, etc. for the first month For Dr. Montez patients , please obtain PA & Lat CXR in 2 weeks, results to Dr. Montez ( prescription will be given) ( ) (Tele: [phone]) , F/U appointment: as per [place] instructions: PCP in 2 weeks, CV surgeon 2 weeks, Adjustment Supervisor 3-4 weeks For any questions regarding incisions/ dressing / meds / post op care or above Symptoms, Monday 8am-5pm Heart & Vascular Surgery Office ( Dr. Ochoa & Dr. Montez), After Hours / Nights (5pm -8am) Weekends and Holidays Please call [facility] ([facility]) Charge Nurse I have seen patient Jameson Mcdaniel on 08/18/17. My clinical findings support the need for the requested home health care services because: Ltd mobility - disease progression Patient has SOB I certify that my clinical findings support that this patient is homebound because: Post-op weakness Jacinda Garza MD Aug 18, 2017 14:18
--- NOTE | 2017-08-18 14:27 | HHI.PR ---
Subjective Remarks Is ambulating in the room with the chest tube. Says pain is better controlled using less DROP FORGE OPERATOR pump. Switch to p.o. pain medications with breakthrough pain IV as needed. Morphine patient feels much better today. He is less depressed. Says he wants to get better. No fever or chills. No nausea or vomiting. No diarrhea or constipation. Objective Vitals Vital Signs Date Time Temp Pulse Resp B/P (MAP) Pulse Ox O2 Delivery O2 Flow Rate FiO2 08/18/17 12:07 50 08/18/17 12:00 98.5 56 20 132/66 (88) 96 08/18/17 12:00 56 08/18/17 11:00 56 08/18/17 10:00 64 08/18/17 09:00 64 08/18/17 08:13 94 21 08/18/17 08:00 97.9 65 20 128/61 (83) 95 08/18/17 08:00 72 08/18/17 07:04 68 08/18/17 07:00 52 08/18/17 06:00 55 08/18/17 06:00 22 08/18/17 05:00 54 08/18/17 04:00 56 08/18/17 03:35 22 08/18/17 03:30 22 08/18/17 03:00 98.8 57 22 132/62 (85) 95 08/18/17 03:00 57 08/18/17 02:54 94 08/18/17 02:00 68 08/18/17 01:00 60 08/18/17 00:00 66 08/17/17 23:00 100.2 66 22 157/77 (103) 95 08/17/17 23:00 66 08/17/17 22:00 64 08/17/17 22:00 22 08/17/17 21:00 66 08/17/17 20:00 62 08/17/17 19:00 70 08/17/17 19:00 99.3 70 22 130/61 (84) 96 08/17/17 18:01 66 08/17/17 17:01 62 08/17/17 16:20 95 21 08/17/17 16:00 58 08/17/17 15:01 97.9 59 18 121/58 (79) 96 6/14/18 15:00 83 I/O 08/17/17 08/17/17 08/17/17 08/18/17 08/18/17 08/18/17 07:00 15:00 23:00 07:00 15:00 23:00 Intake Total 240 ml 100 ml 822 ml 240 ml Output Total 1160 ml 1945 ml 1640 ml Balance -920 ml 100 ml -1123 ml -1400 ml Intake Oral 240 ml 822 ml 240 ml IV Total 100 ml Output Urine Total 1000 ml 1775 ml 1550 ml Stool Total 0 ml Chest Tube Drainage Total 160 ml 170 ml 90 ml # Voids 5 # Bowel Movements 0 Result Diagram: 08/17/17 0420 08/18/17 0520 Imaging Last Impressions Chest X-Ray 08/18/17 Signed Impressions: CONCLUSION: 1. Small residual right-sided pneumothorax measuring 15 mm at the right lung b ase. 2. Right basilar patchiness is stable. Thoracentesis Ultrasound 08/09/17 Signed Impressions: CONCLUSION: Uncomplicated right thoracentesis. As described above, the pleural effusion is complex containing multiple septations preventing complete evacuation. Abdomen/Pelvis CT 08/09/17 Signed Impressions: CONCLUSION: 1. Loculated pleural effusion and associated right lower lobe consolidation ar e unchanged from yesterday's exam. 2. Trace amount of free fluid within the pelvis. 3. No acute abnormality. Chest CT 08/08/17 Signed Impressions: CONCLUSION: 1. Large right effusion and consolidation. 2. Granulomatous disease is noted as above. Objective Remarks GENERAL: 66 yo male appearing older than the stated age, cachectic, chronically ill appearing however not in apparent distress. He appears sad and frustrated. CARDIOVASCULAR: Regular rate and rhythm without murmurs, gallops, or rubs. RESPIRATORY: Right back mid lateral chest tube in place, draining serosanguineous fluid Breath sounds decrease mostly on the right. No accessory muscle use. GASTROINTESTINAL: Abdomen soft, non-tender, nondistended. MUSCULOSKELETAL: No cyanosis, or edema. BACK: Nontender without obvious deformity. No CVA tenderness. Procedures Thoracentesis s/p decortication right chest on 08/14/[address] Montez A/P Problem List: (1) Pleural effusion on right ICD Code: J90 - Pleural effusion, not elsewhere classified (2) Community acquired bacterial pneumonia ICD Code: J15.9 - Unspecified bacterial pneumonia Assessment and Plan 66-year-old man with Community-acquired bacterial pneumonia CT chest noted with finding of consolidation Currently on azithromycin and Zosyn Pneumococcal and Legionella urinary antigens negative Sputum culture negative S/p thoracentesis Fluid growing Fusobacterium and anaerobic gram positive Maintain oxygen saturation above 88%, DuoNeb and Mucinex ID consulted, appreciate recs Large right pleural effusion Status post thoracentesis pending cytology report Appreciate input from pulmonary medicine , as pleural effusion has multiple septations therefore cannot be completely aspirated percutaneously Cardiothoracic surgery plan for VATS + decortication August 14, 2017 Received Zosyn, Vancomycin and vancomycin. ABX at DC: Unasyn 3 grams IV Q6H. Stop Treatment: Sep 20, 2017. Pleural fluid culture positive for anaerobic gram-positive cocci, Fusobacterium species Tumor markers negative Anorexia/weight loss Patient with complicated abdominal surgeries for unclear reasons as he is a poor historian, medical records requested from the [place] CT of the abdomen/pelvis noted Tumor markers including AFP, CA 19 9, CEA, LDH all negative Normochromic normocytic anemia H&H stable and continue to monitor Thrombocytosis Likely 2/2 current infectious process, continue to monitor Hyperlipidemia/coronary artery disease Continue home medications once reconciled Hepatitis C Follow-up as an outpatient Chronic pain On Suboxone at home Morphine for pain Depression /anxiety: Consult psychiatry. Start Ativan 0.5 mg po q8hrs prn. Went for VATS by Dr Montez 08/14/[address] with serosanguineous fluid Also consult palliative care for goals of care , patient is full code and wants everything done. DC when improved and cleared by consultants. Improved significantly. ABX at DC per ID recommendations. Poss DC when arrangements are done and after CT removed by surgery. Discussed with the patient, nurse. Jacinda Garza MD Aug 18, 2017 14:27
[2017-08-18] MEDS ORDERED: MIRTA15 PO (14:31)
--- NOTE | 2017-08-18 14:49 | PD.CAR.PN ---
CVT Progress Note CVT: POD #: 4 Subjective/Hospital Course: A 66-year-old male with history of coronary artery disease, hepatitis C, also fibromyalgia, hyperlipidemia, who presented to the emergency room with progressive shortness of breath over about a month. He has also had some fevers and chills, weight loss of 20 pounds in about [address] a [address] scan, which showed a large right pleural effusion with loculation, evidence of some consolidation, single granulomatous disease in the spleen as well as some mediastinal adenopathy. He denies having any recent travel. No tuberculosis. He has been followed by the [place], Dr. Donis of the [facility]. He underwent thoracentesis where they removed about 120 mL of cloudy yellow fluid. 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 We were consulted for right video-assisted thoracoscopy with decortication. PAST MEDICAL HISTORY: Hypertension, hyperlipidemia, hepatitis C, fibromyalgia, chronic pain, history of prior cardiac catheterization with stenting, lumbar disk surgery, cervical disk fusion. surgery: 08/14 Right thoracoscopic exploration, drainage of pleural effusion, decortication 08/15 pain controlled with biological photographer cytology and cultures pending consult PT/ OOB leave chest tube in 08/16 pt very depressed today / psych consulted no growth in recent pleural fluid from 08/14 prior fluid : Fusobacterium on antibiotics leave chest tube in / to wall suction 08/17 chest tube drained 160cc/ 12 hrs leave chest tube in , gentle diuresis / chest tube to water seal 08/18/17 c/o pain related to chest tubes. Objective: Vital Signs Date Time Temp Pulse Resp B/P (MAP) Pulse Ox O2 Delivery O2 Flow Rate FiO2 08/18/17 12:07 50 08/18/17 12:00 98.5 56 20 132/66 (88) 96 08/18/17 12:00 56 08/18/17 11:00 56 08/18/17 10:00 64 08/18/17 09:00 64 08/18/17 08:13 94 21 08/18/17 08:00 97.9 65 20 128/61 (83) 95 08/18/17 08:00 72 08/18/17 07:04 68 08/18/17 07:00 52 08/18/17 06:00 55 08/18/17 06:00 22 08/18/17 05:00 54 08/18/17 04:00 56 08/18/17 03:35 22 08/18/17 03:30 22 08/18/17 03:00 98.8 57 22 132/62 (85) 95 08/18/17 03:00 57 08/18/17 02:54 94 08/18/17 02:00 68 08/18/17 01:00 60 08/18/17 00:00 66 08/17/17 23:00 100.2 66 22 157/77 (103) 95 08/17/17 23:00 66 08/17/17 22:00 64 08/17/17 22:00 22 08/17/17 21:00 66 08/17/17 20:00 62 08/17/17 19:00 70 08/17/17 19:00 99.3 70 22 130/61 (84) 96 08/17/17 18:01 66 08/17/17 17:01 62 08/17/17 16:20 95 21 08/17/17 16:00 58 08/17/17 15:01 97.9 59 18 121/58 (79) 96 08/17/17 15:00 83 Labs: Laboratory Tests Test 08/18/17 05:20 Blood Urea Nitrogen 5 MG/DL (7-18) Creatinine 0.47 MG/DL (0.60-1.30) Random Glucose 87 MG/DL (74-106) Calcium Level 7.9 MG/DL (8.5-10.1) Sodium Level 137 MEQ/L (136-145) Potassium Level 3.4 MEQ/L (3.5-5.1) Chloride Level 98 MEQ/L (98-107) Carbon Dioxide Level 28.3 MEQ/L (21.0-32.0) Anion Gap 11 MEQ/L (5-15) Estimat Glomerular Filtration Rate 179 ML/MIN (>89) Result Diagram: 08/17/17 0420 08/18/17 0520 Imaging: Last 24 hours Impressions Chest X-Ray 08/18/17 0000 Signed Impressions: CONCLUSION: 1. Small residual right-sided pneumothorax measuring 15 mm at the right lung b ase. 2. Right basilar patchiness is stable. Cardiovascular: RRR Pulmonary: CTA GI/: NABS, NT Incision: dry and intact CT: ~80ml over the last 9 hrs Plan: Remove chest tubes D/C per primary service Follow-up appt with CXR in 2-3 weeks (1) Pleural effusion (2) Loculated empyema (3) Right thoracoscopic exploration, drainage of pleural effusion, decortication Plan: no growth to date in current cultures cytology neg for malignant cells ID following leave chest tube in / place to water seal OOB (4) Adjustment disorder with mixed anxiety and depressed mood Plan: psych following Magalys Montez MD Aug 18, 2017 14:49
[2017-08-18] MEDS: ACETAMINOPHEN/HYDROcodone 325 MG/10 MG TAB PO PRN ×2 (16:17→21:30)
[2017-08-18] MEDS: PANTOPRAZOLE SOD 40 MG DELAYED RELEASE TAB PO SCH (21:00)
[2017-08-18] MEDS: MIRTAZAPINE 15 MG TAB PO SCH (21:00)
[2017-08-19] VITALS (22 sets, daily range): BP systolic 115–165; BP diastolic 58–80; PULSE 44–68; RESP 14–18; TEMP 97.4–98.4; O2SAT 94–97
[2017-08-19] MEDS: HEPARIN SODIUM - SQ 10,000 UNITS/ML VIAL SQ SCH ×3 (00:04→23:36)
[2017-08-19] MEDS: AMPICILLIN-SULBACTAM INJ 3 GM in SODIUM CHLORIDE 0.9% INJ 100 ML IV SCH ×5 (00:04→23:38)
[2017-08-19] MEDS: MORPHINE SULFATE 4 MG/ML INJ IV PRN ×5 (00:14→20:42)
[2017-08-19] MEDS: ACETAMINOPHEN/HYDROcodone 325 MG/10 MG TAB PO PRN ×2 (03:41→14:56)
[2017-08-19] MEDS: ONDANSETRON ODT 4 MG TAB PO PRN ×2 (08:37→23:40)
[2017-08-19] MEDS: ACETAMINOPHEN/HYDROcodone 325 MG/5 MG TAB PO PRN ×3 (08:40→23:39)
[2017-08-19] MEDS: guaiFENesin E.R. 600 MG TAB PO SCH ×2 (08:42→20:40)
[2017-08-19] MEDS: DOCUSATE SODIUM 100 MG CAP PO SCH ×2 (08:42→20:40)
[2017-08-19] MEDS: POLYETHYLENE GLYCOL 17 GM PKG PO SCH (08:43)
[2017-08-19] MEDS: SODIUM CHLORIDE 0.9% FLUSH 10 ML FLUSH IV FLUSH SCH ×2 (08:44→20:40)
--- NOTE | 2017-08-19 09:25 | HHI.PR ---
Subjective Remarks Is in bed says he still has pain. No nausea vomiting no diarrhea constipation. Not coughing much. [facility]wait[facility] and [facility]. Objective Vitals Vital Signs Date Time Temp Pulse Resp B/P (MAP) Pulse Ox O2 Delivery O2 Flow Rate FiO2 08/19/17 08:19 94 21 08/19/17 03:00 97.4 50 14 151/68 (95) 97 08/19/17 03:00 44 08/18/17 23:00 49 08/18/17 23:00 98.3 54 16 131/67 (88) 96 08/18/17 19:57 94 21 08/18/17 19:00 56 08/18/17 19:00 98.0 61 16 119/69 (86) 95 08/18/17 18:00 66 08/18/17 17:17 20 08/18/17 17:00 56 08/18/17 16:04 56 08/18/17 15:00 54 08/18/17 15:00 98.9 60 20 132/74 (93) 93 08/18/17 14:00 66 08/18/17 14:00 18 08/18/17 12:07 50 08/18/17 12:00 98.5 56 20 132/66 (88) 96 08/18/17 12:00 56 08/18/17 11:00 56 08/18/17 10:00 64 I/O 08/18/17 08/18/17 08/18/17 08/19/17 08/19/17 08/19/17 07:00 15:00 23:00 07:00 15:00 23:00 Intake Total 240 ml 240 ml 240 ml Output Total 1640 ml 80 ml 420 ml Balance -1400 ml 160 ml -180 ml Intake Oral 240 ml 240 ml 240 ml Output Urine Total 1550 ml 420 ml Chest Tube Drainage Total 90 ml 80 ml # Voids 4 # Bowel Movements 1 0 Result Diagram: 08/17/17 0420 08/18/17 0520 Imaging Last Impressions Chest X-Ray 08/19/17 1308 Signed Impressions: CONCLUSION: Removal of right chest tube without significant pneumothorax. Small right effus ion remains. Basilar airspace disease similar to August 18. Thoracentesis Ultrasound 08/09/17 0000 Signed Impressions: CONCLUSION: Uncomplicated right thoracentesis. As described above, the pleural effusion is complex containing multiple septations preventing complete evacuation. Abdomen/Pelvis CT 08/09/17 0000 Signed Impressions: CONCLUSION: 1. Loculated pleural effusion and associated right lower lobe consolidation ar e unchanged from yesterday's exam. 2. Trace amount of free fluid within the pelvis. 3. No acute abnormality. Chest CT 08/08/17 0000 Signed Impressions: CONCLUSION: 1. Large right effusion and consolidation. 2. Granulomatous disease is noted as above. Objective Remarks GENERAL: 66 yo male appearing older than the stated age, cachectic, chronically ill appearing however not in apparent distress. He appears sad and frustrated. CARDIOVASCULAR: Regular rate and rhythm without murmurs, gallops, or rubs. RESPIRATORY: Right back mid lateral chest with dressing on c/d/i. Breath sounds decrease mostly on the right. No accessory muscle use. GASTROINTESTINAL: Abdomen soft, non-tender, nondistended. MUSCULOSKELETAL: No cyanosis, or edema. BACK: Nontender without obvious deformity. No CVA tenderness. Procedures Thoracentesis s/p decortication right chest on 08/14/[address] Montez A/P Problem List: (1) Pleural effusion on right ICD Code: J90 - Pleural effusion, not elsewhere classified (2) Community acquired bacterial pneumonia ICD Code: J15.9 - Unspecified bacterial pneumonia Assessment and Plan 66-year-old man with Community-acquired bacterial pneumonia CT chest noted with finding of consolidation Currently on azithromycin and Zosyn Pneumococcal and Legionella urinary antigens negative Sputum culture negative S/p thoracentesis Fluid growing Fusobacterium and anaerobic gram positive Maintain oxygen saturation above 88%, DuoNeb and Mucinex ID consulted, appreciate recs Large right pleural effusion Status post thoracentesis pending cytology report Appreciate input from pulmonary medicine , as pleural effusion has multiple septations therefore cannot be completely aspirated percutaneously Cardiothoracic surgery plan for VATS + decortication August 14, 2017 Received Zosyn, Vancomycin and vancomycin. ABX at DC: Unasyn 3 grams IV Q6H. Stop Treatment: Sep 20, 2017. Pleural fluid culture positive for anaerobic gram-positive cocci, Fusobacterium species Tumor markers negative Chest tube removed Anorexia/weight loss Patient with complicated abdominal surgeries for unclear reasons as he is a poor historian, medical records requested from the [place] CT of the abdomen/pelvis noted Tumor markers including AFP, CA 19 9, CEA, LDH all negative Normochromic normocytic anemia H&H stable and continue to monitor Thrombocytosis Likely 2/2 current infectious process, continue to monitor Hyperlipidemia/coronary artery disease Continue home medications once reconciled Hepatitis C Follow-up as an outpatient Chronic pain On Suboxone at home Morphine for pain Depression /anxiety: Consult psychiatry. Start Ativan 0.5 mg po q8hrs prn. Went for VATS by Dr Montez 08/14/[address] with serosanguineous fluid Also consult palliative care for goals of care , patient is full code and wants everything done. DC when improved and cleared by consultants. Improved significantly. ABX at DC per ID recommendations. DC when arrangements are done Discussed with the patient, nurse. Jacinda Garza MD Aug 19, 2017 09:25
[2017-08-19] MEDS ORDERED: BUPRENORPHINE NALOXONE SL SCH (10:30)
[2017-08-19] MEDS: LORazepam 0.5 MG TAB PO PRN ×2 (11:42→20:40)
--- NOTE | 2017-08-19 13:15 | HHI.PR ---
Subjective Remarks Patient is lying in bed in NAD. s/p CT removal yesterday. On room air oxygen. Objective Vital Signs Vital Signs Date Time Temp Pulse Resp B/P (MAP) Pulse Ox O2 Delivery O2 Flow Rate FiO2 08/19/17 12:00 57 08/19/17 11:00 56 08/19/17 11:00 98.4 68 18 165/80 (108) 96 08/19/17 10:00 61 08/19/17 09:00 58 08/19/17 08:19 94 21 08/19/17 08:00 66 08/19/17 07:00 97.9 52 16 152/71 (98) 96 08/19/17 07:00 46 08/19/17 03:00 97.4 50 14 151/68 (95) 97 08/19/17 03:00 44 08/18/17 23:00 49 08/18/17 23:00 98.3 54 16 131/67 (88) 96 08/18/17 19:57 94 21 08/18/17 19:00 56 08/18/17 19:00 98.0 61 16 119/69 (86) 95 08/18/17 18:00 66 08/18/17 17:17 20 08/18/17 17:00 56 08/18/17 16:04 56 08/18/17 15:00 54 08/18/17 15:00 98.9 60 20 132/74 (93) 93 08/18/17 14:00 66 08/18/17 14:00 18 I/O 08/18/17 08/18/17 08/18/17 08/19/17 08/19/17 08/19/17 07:00 15:00 23:00 07:00 15:00 23:00 Intake Total 240 ml 240 ml 240 ml Output Total 1640 ml 80 ml 420 ml Balance -1400 ml 160 ml -180 ml Intake Oral 240 ml 240 ml 240 ml Output Urine Total 1550 ml 420 ml Chest Tube Drainage Total 90 ml 80 ml # Voids 4 # Bowel Movements 1 0 Result Diagram: 08/17/17 0420 08/18/17 0520 Other Results Last Impressions Chest X-Ray 08/18/17 0000 Signed Impressions: CONCLUSION: 1. Small residual right-sided pneumothorax measuring 15 mm at the right lung b ase. 2. Right basilar patchiness is stable. Thoracentesis Ultrasound 08/09/17 Signed Impressions: CONCLUSION: Uncomplicated right thoracentesis. As described above, the pleural effusion is complex containing multiple septations preventing complete evacuation. Abdomen/Pelvis CT 08/09/17 Signed Impressions: CONCLUSION: 1. Loculated pleural effusion and associated right lower lobe consolidation ar e unchanged from yesterday's exam. 2. Trace amount of free fluid within the pelvis. 3. No acute abnormality. Chest CT 08/08/17 Signed Impressions: CONCLUSION: 1. Large right effusion and consolidation. 2. Granulomatous disease is noted as above. Objective Remarks GENERAL: Patient is 66 yo lying in bed in NAD SKIN: Warm and dry. HEAD: Normocephalic. EYES: No scleral icterus. No injection or drainage. NECK: Supple, trachea midline. No JVD or lymphadenopathy. CARDIOVASCULAR: Regular rate and rhythm without murmurs, gallops, or rubs. RESPIRATORY: Breath sounds equal bilaterally. No accessory muscle use. GASTROINTESTINAL: Abdomen soft, non-tender, nondistended. MUSCULOSKELETAL: No cyanosis, or edema. Neuro: Awake and alert A/P Assessment and Plan 1. Loculated pleural effusion 2 Emypyema 3 s/p Decortication 4. Chronic obstructive pulmonary disease. 5. Hyperlipidemia and coronary artery disease. 6. History of hepatitis C. 6. Chronic back pain. Plan : s/p CT removal yesterday. Check CR Bronchodilators. IS Abx per ID- On IV Unasyn- till September 20 per ID Fluid cx: Fusobacterium species Monitor for signs of infections ( fever, WBC) WBC is trending down. GI/DVT prophylaxis- on Heparin Sq If CXR today shows no residual PTX then ok for dc from pulmonary standpoint and follow up with Dr. Myles in 1 week . Penny Munoz MD Aug 19, 2017 13:15
--- NOTE | 2017-08-19 13:39 | RADRPT ---
EXAM DATE: 08/19/2017 1:35 PM EDT AGE/SEX: 66 years / Male INDICATIONS: s/p chest tube removal. Basilar airspace. CLINICAL DATA: This is the patient's subsequent encounter. Patient reports that signs and symptoms h ave been present for 1 week and indicates a pain score of 0/10. MEDICAL/SURGICAL HISTORY: . Chronic obstructive pulmonary disease. Cardiovascular disease. Hype rcholesterolemia . Coronary artery stent. [place] [facility] [place] . FINDINGS: Right PICC line in superior vena cava. Heart size within normal limits. Tortuous aorta. Bilateral eff usions, right greater than left basilar airspace disease. Previous right chest tube has been removed without significant pneumothorax. CONCLUSION: Removal of right chest tube without significant pneumothorax. Small right effusion remains. Basilar a irspace disease similar to August 18. Electronically signed by: Jameson Arora MD 08/19/2017 1:38 PM EDT
[2017-08-19] MEDS: PANTOPRAZOLE SOD 40 MG DELAYED RELEASE TAB PO SCH (20:40)
[2017-08-19] MEDS: MIRTAZAPINE 15 MG TAB PO SCH (21:00)
[2017-08-19] MEDS ORDERED: PATIENT OWN MEDICATION SL SCH (21:00)
[2017-08-20] VITALS (27 sets, daily range): BP systolic 109–160; BP diastolic 58–87; PULSE 45–68; RESP 17; TEMP 96.8–98; O2SAT 95–98
[2017-08-20] MEDS: AMPICILLIN-SULBACTAM INJ 3 GM in SODIUM CHLORIDE 0.9% INJ 100 ML IV SCH ×4 (05:46→23:44)
[2017-08-20] MEDS: ACETAMINOPHEN/HYDROcodone 325 MG/5 MG TAB PO PRN ×4 (05:47→21:47)
[2017-08-20] MEDS: guaiFENesin E.R. 600 MG TAB PO SCH ×2 (08:16→21:45)
[2017-08-20] MEDS: LORazepam 0.5 MG TAB PO PRN ×2 (08:16→21:46)
[2017-08-20] MEDS: SODIUM CHLORIDE 0.9% FLUSH 10 ML FLUSH IV FLUSH SCH ×2 (08:17→21:45)
[2017-08-20] MEDS: DOCUSATE SODIUM 100 MG CAP PO SCH ×2 (08:17→21:00)
[2017-08-20] MEDS: MORPHINE SULFATE 4 MG/ML INJ IV PRN ×2 (08:24→12:48)
[2017-08-20] MEDS: POLYETHYLENE GLYCOL 17 GM PKG PO SCH (09:00)
--- NOTE | 2017-08-20 09:26 | HHI.PR ---
Subjective Remarks He is in bed. Appears to not acute distress at this time. He is saturating well while on room air. No much chest pain. Sleeping well at night. No nausea vomiting diarrhea constipation. No fever overnight. No cough. Objective Vitals Vital Signs Date Time Temp Pulse Resp B/P (MAP) Pulse Ox O2 Delivery O2 Flow Rate FiO2 08/20/17 08:28 52 08/20/17 07:00 53 08/20/17 07:00 96.8 53 17 139/63 (88) 96 08/20/17 06:07 47 08/20/17 05:00 45 08/20/17 04:25 48 08/20/17 03:26 98.0 53 17 135/74 (94) 96 08/20/17 03:00 45 08/20/17 02:00 46 08/20/17 01:00 46 08/20/17 01:00 18 08/20/17 00:00 51 08/19/17 23:47 97.9 54 18 144/70 (94) 97 08/19/17 23:00 51 08/19/17 22:00 48 08/19/17 21:13 16 08/19/17 21:08 95 21 08/19/17 21:00 50 08/19/17 20:12 98.0 56 18 135/68 (90) 96 08/19/17 20:00 59 08/19/17 19:00 52 08/19/17 18:00 59 08/19/17 17:00 57 08/19/17 16:00 51 08/19/17 15:00 97.9 58 16 115/58 (77) 95 08/19/17 15:00 56 08/19/17 14:00 56 08/19/17 13:00 58 08/19/17 12:00 57 08/19/17 11:00 56 08/19/17 11:00 98.4 68 18 165/80 (108) 96 08/19/17 10:00 61 I/O 08/19/17 08/19/17 08/19/17 08/20/17 08/20/17 08/20/17 07:00 15:00 23:00 07:00 15:00 23:00 Intake Total 240 ml 480 ml 440 ml Output Total 420 ml 400 ml 350 ml Balance -180 ml 80 ml 90 ml Intake Oral 240 ml 480 ml 240 ml IV Total 200 ml Output Urine Total 420 ml 400 ml 350 ml # Bowel Movements 0 1 Result Diagram: 08/17/17 0420 08/18/17 0520 Objective Remarks GENERAL: 66 yo male appearing older than the stated age, cachectic, chronically ill appearing however not in apparent distress. He appears sad and frustrated. CARDIOVASCULAR: Regular rate and rhythm without murmurs, gallops, or rubs. RESPIRATORY: Right back mid lateral chest with dressing on c/d/i. Breath sounds decrease mostly on the right. No accessory muscle use. GASTROINTESTINAL: Abdomen soft, non-tender, nondistended. MUSCULOSKELETAL: No cyanosis, or edema. BACK: Nontender without obvious deformity. No CVA tenderness. Procedures Thoracentesis s/p decortication right chest on 08/14/[address] Montez A/P Problem List: (1) Pleural effusion on right ICD Code: J90 - Pleural effusion, not elsewhere classified (2) Community acquired bacterial pneumonia ICD Code: J15.9 - Unspecified bacterial pneumonia Assessment and Plan 66-year-old man with Community-acquired bacterial pneumonia CT chest noted with finding of consolidation Currently on azithromycin and Zosyn Pneumococcal and Legionella urinary antigens negative Sputum culture negative S/p thoracentesis Fluid growing Fusobacterium and anaerobic gram positive Maintain oxygen saturation above 88%, DuoNeb and Mucinex ID consulted, appreciate recs Large right pleural effusion Status post thoracentesis pending cytology report Appreciate input from pulmonary medicine , as pleural effusion has multiple septations therefore cannot be completely aspirated percutaneously Cardiothoracic surgery plan for VATS + decortication August 14, 2017 Received Zosyn, Vancomycin and vancomycin. ABX at DC: Unasyn 3 grams IV Q6H. Stop Treatment: Sep 20, 2017. Pleural fluid culture positive for anaerobic gram-positive cocci, Fusobacterium species Tumor markers negative Chest tube removed Anorexia/weight loss Patient with complicated abdominal surgeries for unclear reasons as he is a poor historian, [facility]/pelvis noted Tumor markers including AFP, CA 19 9, CEA, LDH all negative Normochromic normocytic anemia H&H stable and continue to monitor Thrombocytosis Likely 2/2 current infectious process, continue to monitor Hyperlipidemia/coronary artery disease Continue home medications once reconciled Hepatitis C Follow-up as an outpatient Chronic pain On Suboxone at home Morphine for pain Depression /anxiety: Consult psychiatry. Start Ativan 0.5 mg po q8hrs prn. Went for VATS by Dr Montez 08/14/[address] with serosanguineous fluid Also consult palliative care for goals of care , patient is full code and wants everything done. DC when improved and cleared by consultants. Improved significantly. ABX at DC per ID recommendations. DC when arrangements are done Discussed with the patient, nurse. Jacinda Garza MD Aug 20, 2017 09:26
--- NOTE | 2017-08-20 09:51 | HHI.PR ---
Subjective Remarks No events overnight. Patient is lying in bed in NAD. On room air oxygen. Objective Vital Signs Vital Signs Date Time Temp Pulse Resp B/P (MAP) Pulse Ox O2 Delivery O2 Flow Rate FiO2 08/20/17 08:28 52 08/20/17 07:00 53 08/20/17 07:00 96.8 53 17 139/63 (88) 96 08/20/17 06:07 47 08/20/17 05:00 45 08/20/17 04:25 48 08/20/17 03:26 98.0 53 17 135/74 (94) 96 08/20/17 03:00 45 08/20/17 02:00 46 08/20/17 01:00 46 08/20/17 01:00 18 08/20/17 00:00 51 08/19/17 23:47 97.9 54 18 144/70 (94) 97 08/19/17 23:00 51 08/19/17 22:00 48 08/19/17 21:13 16 08/19/17 21:08 95 21 08/19/17 21:00 50 08/19/17 20:12 98.0 56 18 135/68 (90) 96 08/19/17 20:00 59 08/19/17 19:00 52 08/19/17 18:00 59 08/19/17 17:00 57 08/19/17 16:00 51 08/19/17 15:00 97.9 58 16 115/58 (77) 95 08/19/17 15:00 56 08/19/17 14:00 56 08/19/17 13:00 58 08/19/17 12:00 57 08/19/17 11:00 56 08/19/17 11:00 98.4 68 18 165/80 (108) 96 08/19/17 10:00 61 I/O 08/19/17 08/19/17 08/19/17 08/20/17 08/20/17 08/20/17 07:00 15:00 23:00 07:00 15:00 23:00 Intake Total 240 ml 480 ml 440 ml Output Total 420 ml 400 ml 350 ml Balance -180 ml 80 ml 90 ml Intake Oral 240 ml 480 ml 240 ml IV Total 200 ml Output Urine Total 420 ml 400 ml 350 ml # Bowel Movements 0 1 Result Diagram: 08/17/17 0420 08/18/17 0520 Other Results Last Impressions Chest X-Ray 08/19/17 1308 Signed Impressions: CONCLUSION: Removal of right chest tube without significant pneumothorax. Small right effus ion remains. Basilar airspace disease similar to August 18. Thoracentesis Ultrasound 08/09/17 0000 Signed Impressions: CONCLUSION: Uncomplicated right thoracentesis. As described above, the pleural effusion is complex containing multiple septations preventing complete evacuation. Abdomen/Pelvis CT 08/09/17 0000 Signed Impressions: CONCLUSION: 1. Loculated pleural effusion and associated right lower lobe consolidation ar e unchanged from yesterday's exam. 2. Trace amount of free fluid within the pelvis. 3. No acute abnormality. Chest CT 08/08/17 Signed Impressions: CONCLUSION: 1. Large right effusion and consolidation. 2. Granulomatous disease is noted as above. Objective Remarks GENERAL: Patient is 66 yo lying in bed in NAD SKIN: Warm and dry. HEAD: Normocephalic. EYES: No scleral icterus. No injection or drainage. NECK: Supple, trachea midline. No JVD or lymphadenopathy. CARDIOVASCULAR: Regular rate and rhythm without murmurs, gallops, or rubs. RESPIRATORY: Breath sounds equal bilaterally. No accessory muscle use. GASTROINTESTINAL: Abdomen soft, non-tender, nondistended. MUSCULOSKELETAL: No cyanosis, or edema. Neuro: Awake and alert A/P Assessment and Plan 1. Loculated pleural effusion 2 Emypyema 3 s/p Decortication 4. Chronic obstructive pulmonary disease. 5. Hyperlipidemia and coronary artery disease. 6. History of hepatitis C. 6. Chronic back pain. Plan : Oxygen PRN keep sats >92% s/p CT removal 08/18 Bronchodilators. IS CXR yesterday : Removal of right chest tube without significant pneumothorax. Basilar airspace disease similar to August 18. Abx per ID- On IV Unasyn- till September 20 per ID Fluid cx: Fusobacterium species Monitor for signs of infections ( fever, WBC) WBC is trending down. GI/DVT prophylaxis- on Heparin Sq PICC line in place. Ok for dc from pulmonary standpoint and follow up with Dr. Myles in 1 week . Penny Munoz MD Aug 20, 2017 09:51
[2017-08-20] MEDS: HEPARIN SODIUM - SQ 10,000 UNITS/ML VIAL SQ SCH ×2 (12:47→21:46)
[2017-08-20] MEDS: ONDANSETRON ODT 4 MG TAB PO PRN (16:48)
[2017-08-20] MEDS: ACETAMINOPHEN/HYDROcodone 325 MG/10 MG TAB PO PRN ×2 (19:55→23:44)
[2017-08-20] MEDS: PANTOPRAZOLE SOD 40 MG DELAYED RELEASE TAB PO SCH (21:00)
[2017-08-20] MEDS: MIRTAZAPINE 15 MG TAB PO SCH (21:00)
[2017-08-21] VITALS (22 sets, daily range): BP systolic 38–149; BP diastolic 66–73; PULSE 41–74; RESP 19; TEMP 97.8–98.1; O2SAT 94–98
[2017-08-21] MEDS: ACETAMINOPHEN/HYDROcodone 325 MG/5 MG TAB PO PRN (02:21)
[2017-08-21] MEDS: ACETAMINOPHEN/HYDROcodone 325 MG/10 MG TAB PO PRN ×3 (05:16→13:24)
[2017-08-21] MEDS: AMPICILLIN-SULBACTAM INJ 3 GM in SODIUM CHLORIDE 0.9% INJ 100 ML IV SCH ×3 (05:16→16:24)
[2017-08-21] MEDS: DOCUSATE SODIUM 100 MG CAP PO SCH (09:14)
[2017-08-21] MEDS: guaiFENesin E.R. 600 MG TAB PO SCH (09:14)
[2017-08-21] MEDS: LORazepam 0.5 MG TAB PO PRN (09:14)
[2017-08-21] MEDS: SODIUM CHLORIDE 0.9% FLUSH 10 ML FLUSH IV FLUSH SCH (09:15)
[2017-08-21] MEDS: POLYETHYLENE GLYCOL 17 GM PKG PO SCH (09:18)
[2017-08-21] MEDS: HEPARIN SODIUM - SQ 10,000 UNITS/ML VIAL SQ SCH (11:05)
--- NOTE | 2017-08-21 13:08 | HHI.PR ---
Subjective Remarks He is Post Op right Vats thoracotomy and decortication..On IV Unasyn Wants to go home..Walks in halls. No fever.Chest tube is out. Objective Vital Signs Date Time Temp Pulse Resp B/P (MAP) Pulse Ox O2 Delivery O2 Flow Rate FiO2 08/21/17 12:01 52 08/21/17 11:30 97.8 62 19 38/67 (57) 97 08/21/17 11:00 65 08/21/17 10:03 63 08/21/17 09:00 58 08/21/17 08:23 97 21 08/21/17 08:00 58 08/21/17 07:31 98.0 59 19 149/73 (98) 98 08/21/17 07:00 48 08/21/17 06:35 16 08/21/17 06:12 41 08/21/17 05:08 47 08/21/17 04:30 97.8 53 145/71 (95) 96 08/21/17 04:09 48 08/21/17 03:40 47 08/21/17 02:23 46 08/21/17 01:16 48 08/21/17 00:27 53 08/20/17 23:51 98.0 55 109/58 (75) 98 08/20/17 23:15 56 08/20/17 22:56 16 08/20/17 21:44 53 08/20/17 20:18 52 08/20/17 19:03 96 08/20/17 19:00 98.0 57 139/77 (97) 95 08/20/17 19:00 57 08/20/17 18:00 50 08/20/17 17:00 50 08/20/17 16:00 49 08/20/17 15:00 49 08/20/17 15:00 97.0 68 17 137/74 (95) 96 08/20/17 14:00 62 I/O 08/20/17 08/20/17 08/20/17 08/21/17 08/21/17 08/21/17 06:59 14:59 22:59 06:59 14:59 22:59 Intake Total 440 ml 100 ml 820 ml 820 ml Output Total 350 ml Balance 90 ml 100 ml 820 ml 820 ml Intake Oral 240 ml 720 ml 720 ml IV Total 200 ml 100 ml 100 ml 100 ml Output Urine Total 350 ml # Voids 4 3 # Bowel Movements 2 Result Diagram: 08/17/17 0420 08/18/17 0520 Objective Remarks GENERAL: This is an averagely, elderly man who is in the bed, pale, in no acute distress. HEENT: Head is normocephalic. Pupils are reactive. Tongue is moist. Nasal mucosa clear. Throat is clear. NECK: Supple, no bruits or thyroid enlargement. LUNGS: There are decreased breath sounds over the right mid and lower chest . HEART: The heart sounds are regular S1 and S2 with no murmur. No S3 gallop. ABDOMEN: Soft and nontender. No organomegaly. Bowel sounds are active. EXTREMITIES: No lesions, no edema. NEUROLOGIC: Reflexes are 1+ with no gross motor deficits. RECTAL: Deferred. SKIN: No lesions observed. Assessment and Plan Assessment and Plan ASSESSMENT: 1. Large loculated right pleural effusion, etiology undetermined, possible empyema and underlying pneumonia. 2. Chronic obstructive pulmonary disease. 3. Hyperlipidemia and coronary artery disease. 4. S/P Decortication right chest 5. History of hepatitis C. 6. Chronic back pain. Plan : 1.Continue antibiotics.per ID 2. IV Meds at Home with Home health. 3. Nebs tid , duoneb 4. IS Q2H. bedside 5. D/C O2 6. Symbicort 160/4.5 mcg , 2puffs BID 7. Will see as OP in 3 weeks. Kevin Myles MD Aug 21, 2017 13:08
--- NOTE | 2017-08-21 13:25 | HHI.IDPN ---
Note Infectious Disease Note Patient is tearful and frustrated. He was hoping to be out of the hospital by now. Antibiotic outpatient arrangements not yet completed. Right chest tube has been removed. Denies chest pain and says he feels fine. Pleural fluid surgical culture repeat has no growth. White blood cell count is normal. Afebrile. 66-year-old white male who presented to the emergency department on 08/08/2017 with weakness and abnormal lab work. The patient had lab work at the [facility] and his white count was elevated at 29,000. He was complaining of worsening shortness of breath over the past 6 weeks. The patient was afebrile on admission. PAST MEDICAL HISTORY: 1. Coronary artery disease. 2. Hepatitis C. 3. Fibromyalgia. 4. History of neck fusion. 5. History of low back surgery. 6. Vagotomy. 7. History of cardiac catheterization with stent placement x 1. 8. Unspecified gastric surgery. 9. 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 ALLERGIES: BACLOFEN. MEDICATIONS: Current Medications Medications (Trade) Dose Ordered Sig/Alejandro Route PRN Reason Start Time Stop Time Status Last Admin Dose Admin Albuterol/ Ipratropium (Duoneb Neb) 1 ampule Q4HR NEB PRN NEB SOB/Wheezing 08/08/17 22:30 08/14/17 04:03 Acetaminophen (Tylenol) 650 mg Q4H PRN PO TEMP > 100.4 08/08/17 22:30 08/17/17 23:58 Ondansetron HCl (Zofran Odt) 4 mg Q6H PRN PO NAUSEA/VOMITING 08/08/17 22:45 08/20/17 16:48 Heparin Sodium (Porcine) (Heparin Inj) 5,000 units Q12H SQ 08/08/17 23:00 08/21/17 11:05 Naloxone HCl (Narcan Inj) 0.4 mg UNSCH PRN IV PUSH SEE LABEL COMMENTS 08/08/17 22:30 Bisacodyl (Dulcolax Supp) 10 mg DAILY PRN RECTAL SEVERE CONSITIPATION 08/08/17 22:30 Lactulose (Lactulose Liq) 30 ml DAILY PRN PO SEVERE CONSITIPATION 08/08/17 22:30 Guaifenesin (Mucinex Er) 600 mg BID PO 08/09/17 21:00 08/21/17 09:14 Albuterol Sulfate (Albuterol Neb) 2.5 mg Q2HR NEB PRN NEB WHEEZING 08/14/17 14:30 Sodium Chloride (NS Flush) 2 ml BID IV FLUSH 08/14/17 21:00 08/21/17 09:15 Sodium Chloride (NS Flush) 2 ml UNSCH PRN IV FLUSH FLUSH AFTER USING IV ACCESS 08/14/17 14:30 Pantoprazole Sodium (Protonix) 40 mg HS PO 08/14/17 21:00 08/14/17 21:25 Magnesium Hydroxide (Milk Of Magnbo Liq) 30 ml DAILY PRN PO MILD CONSTIPATION 08/14/17 14:30 08/16/17 10:52 Acetaminophen (Tylenol) 650 mg Q4H PRN PO TEMPERATURE > 101 F 08/14/17 14:30 Ampicillin Sodium/ Sulbactam Sodium 3 gm/Sodium Chloride 100 ml @ 200 mls/hr Q6H IV 08/15/17 12:00 08/21/17 11:05 Dextrose (D50w (Vial) Inj) 50 ml UNSCH PRN IV PUSH HYPOGLYCEMIA-SEE COMMENTS 08/16/17 10:15 Glucagon (Glucagon Inj) 1 mg UNSCH PRN OTHER HYPOGLYCEMIA-SEE COMMENTS 08/16/17 10:15 Docusate Sodium (Colace) 100 mg BID PO 08/16/17 10:30 08/21/17 09:14 Polyethylene Glycol (Miralax) 17 gm DAILY PO 08/16/17 10:30 Mirtazapine (Remeron) 15 mg HS PO 08/16/17 21:00 Lorazepam (Ativan) 0.5 mg Q8H PRN PO anxiety 08/16/17 13:45 08/21/17 09:14 Heparin Sodium (Porcine) (Heparin Central Flush) See Protocol DAILY IV FLUSH 08/18/17 09:00 08/21/17 09:14 Heparin Sodium (Porcine) (Heparin Central Flush) See Protocol UNSCH PRN IV FLUSH SEE PROTOCOL TABLE 08/17/17 15:00 08/19/17 20:45 Sodium Chloride (NS Flush) UNSCH PRN IV FLUSH SEE PROTOCOL TABLE 08/17/17 15:00 Acetaminophen/ Hydrocodone Bitart ([place] 5-325 Mg) 1 tab Q4H PRN PO PAIN SCALE 3 TO 5 08/18/17 08:00 08/21/17 02:21 Acetaminophen/ Hydrocodone Bitart ([place] 10-325 Mg) 1 tab Q4H PRN PO PAIN SCALE 6 TO 10 08/18/17 08:00 08/21/17 09:14 Naloxone HCl (Narcan Inj) 0.4 mg UNSCH PRN IV PUSH SEE LABEL COMMENTS 08/18/17 08:00 Morphine Sulfate (Morphine Inj) 4 mg Q4H PRN IV BREAKTHROUGH PAIN 08/18/17 17:45 08/20/17 12:48 SOCIAL HISTORY: The patient smokes a pack of cigarettes a day. Denies alcohol. Denies illicit drugs. He resides with his and grandson. OBJECTIVE: Vital Signs Date Time Temp Pulse Resp B/P (MAP) Pulse Ox O2 Delivery O2 Flow Rate FiO2 08/21/17 12:01 52 08/21/17 11:30 97.8 62 19 38/67 (57) 97 08/21/17 11:00 65 08/21/17 10:03 63 08/21/17 09:00 58 08/21/17 08:23 97 21 08/21/17 08:00 58 08/21/17 07:31 98.0 59 19 149/73 (98) 98 08/21/17 07:00 48 08/21/17 06:35 16 08/21/17 06:12 41 08/21/17 05:08 47 08/21/17 04:30 97.8 53 145/71 (95) 96 08/21/17 04:09 48 08/21/17 03:40 47 08/21/17 02:23 46 08/21/17 01:16 48 08/21/17 00:27 53 08/20/17 23:51 98.0 55 109/58 (75) 98 08/20/17 23:15 56 08/20/17 22:56 16 08/20/17 21:44 53 08/20/17 20:18 52 08/20/17 19:03 96 08/20/17 19:00 98.0 57 139/77 (97) 95 08/20/17 19:00 57 08/20/17 18:00 50 08/20/17 17:00 50 08/20/17 16:00 49 08/20/17 15:00 49 08/20/17 15:00 97.0 68 17 137/74 (95) 96 08/20/17 14:00 62 IMAGING: Chest X-Ray 08/19/17 1308 Signed Impressions: CONCLUSION: Removal of right chest tube without significant pneumothorax. Small right effus ion remains. Basilar airspace disease similar to August 18. Chest X-Ray 08/15/17 0500 Signed Impressions: CONCLUSION: No significant interval change. Small right pleural effusion and small right pn eumothorax. Right-sided chest tube remains in place. Thoracentesis Ultrasound 08/09/17 0000 Signed Impressions: CONCLUSION: Uncomplicated right thoracentesis. As described above, the pleural effusion is complex containing multiple septations preventing complete evacuation. Abdomen/Pelvis CT 08/09/17 0000 Signed Impressions: CONCLUSION: 1. Loculated pleural effusion and associated right lower lobe consolidation ar e unchanged from yesterday's exam. 2. Trace amount of free fluid within the pelvis. 3. No acute abnormality. Chest CT 08/08/17 0000 Signed Impressions: CONCLUSION: 1. Large right effusion and consolidation. 2. Granulomatous disease is noted as above. PHYSICAL EXAMINATION: GENERAL: No acute distress. HEENT: Head atraumatic. Pupils reactive to light without icterus. No conjunctival erythema. Oropharynx, moist mucosa. NECK: Supple without adenopathy. LUNGS: Coarse breath sounds at the right base.. HEART: Regular S1 and S2, with distant sounds. No audible murmur. ABDOMEN: Bowel sounds present, soft, no tenderness. EXTREMITIES: No clubbing, cyanosis or edema. SKIN: No diffuse rash. NEUROLOGIC: No gross focal finding. PSYCHIATRIC: Tearful and anxious. IV lines: PICC at right upper extremity is intact. IMPRESSION: 1. Empyema of the right lung. Previous culture on 08/09/2017 revealed Fusobacterium species and anaerobic gram-positive cocci. The patient is status post decortication by video-assisted thoracoscopy. Repeat pleural fluid culture from decortication procedure has no growth. 2. Leukocytosis. Improved. 3. Clinical symptoms improved. Patient is clinically stable. RECOMMENDATIONS: Continue Unasyn intravenous. Orders has been written for outpatient Unasyn until September 20. Patient does not have history of IV drug use and therefore I have no concern over him using the PICC line Inject IV drugs. I have spoken to case management regarding the arrangement of antibiotics. Case management is in the process of arranging outpatient treatment. Patient can be discharged from ID standpoint when arrangements for antibiotics are completed. He is very frustrated and hopefully this can be accomplished today. The Unasyn can probably be administered using a pump facilitate outpatient treatment. If it is not stable enough To be administered on a pump, the antibiotic can be switched to piperacillin/ tazobactam which is more stable and also can be administered on a pump. Ruddy Cast MD Aug 21, 2017 13:25
--- NOTE | 2017-08-21 14:28 | HHI.PR ---
Subjective Remarks Patient is seen medical biller/coder, he is in bed, he is very frustrated as he was not discharge yet. Awaiting for [facility] approval. Patient says he is feeling good he is saturating well while on room air. No nausea vomiting or diarrhea constipation. He is ambulating with any problem Objective Vitals Vital Signs Date Time Temp Pulse Resp B/P (MAP) Pulse Ox O2 Delivery O2 Flow Rate FiO2 08/21/17 13:00 58 08/21/17 12:01 52 08/21/17 11:30 97.8 62 19 38/67 (57) 97 08/21/17 11:00 65 08/21/17 10:03 63 08/21/17 09:00 58 08/21/17 08:23 97 21 08/21/17 08:00 58 08/21/17 07:31 98.0 59 19 149/73 (98) 98 08/21/17 07:00 48 08/21/17 06:35 16 08/21/17 06:12 41 08/21/17 05:08 47 08/21/17 04:30 97.8 53 145/71 (95) 96 08/21/17 04:09 48 08/21/17 03:40 47 08/21/17 02:23 46 08/21/17 01:16 48 08/21/17 00:27 53 08/20/17 23:51 98.0 55 109/58 (75) 98 08/20/17 23:15 56 08/20/17 22:56 16 08/20/17 21:44 53 08/20/17 20:18 52 08/20/17 19:03 96 08/20/17 19:00 98.0 57 139/77 (97) 95 08/20/17 19:00 57 08/20/17 18:00 50 08/20/17 17:00 50 08/20/17 16:00 49 08/20/17 15:00 49 08/20/17 15:00 97.0 68 17 137/74 (95) 96 I/O 08/20/1708/20/18 08/20/18 18 18 08/21/17 07:00 15:00 23:00 07:00 15:00 23:00 Intake Total 440 ml 100 ml 820 ml 820 ml Output Total 350 ml Balance 90 ml 100 ml 820 ml 820 ml Intake Oral 240 ml 720 ml 720 ml IV Total 200 ml 100 ml 100 ml 100 ml Output Urine Total 350 ml # Voids 4 3 # Bowel Movements 2 Result Diagram: 08/17/17 0420 08/18/17 0520 Imaging Last Impressions Chest X-Ray 08/19/17 1308 Signed Impressions: CONCLUSION: Removal of right chest tube without significant pneumothorax. Small right effus ion remains. Basilar airspace disease similar to August 18. Thoracentesis Ultrasound 08/09/17 0000 Signed Impressions: CONCLUSION: Uncomplicated right thoracentesis. As described above, the pleural effusion is complex containing multiple septations preventing complete evacuation. Abdomen/Pelvis CT 08/09/17 0000 Signed Impressions: CONCLUSION: 1. Loculated pleural effusion and associated right lower lobe consolidation ar e unchanged from yesterday's exam. 2. Trace amount of free fluid within the pelvis. 3. No acute abnormality. Chest CT 08/08/17 0000 Signed Impressions: CONCLUSION: 1. Large right effusion and consolidation. 2. Granulomatous disease is noted as above. Objective Remarks GENERAL: 66 yo male appearing older than the stated age, cachectic, chronically ill appearing however not in apparent distress. He appears sad and frustrated. CARDIOVASCULAR: Regular rate and rhythm without murmurs, gallops, or rubs. RESPIRATORY: Right back mid lateral chest with dressing on c/d/i. Breath sounds decrease mostly on the right. No accessory muscle use. GASTROINTESTINAL: Abdomen soft, non-tender, nondistended. MUSCULOSKELETAL: No cyanosis, or edema. BACK: Nontender without obvious deformity. No CVA tenderness. Procedures Thoracentesis s/p decortication right chest on 08/14/[address] Montez A/P Problem List: (1) Pleural effusion on right ICD Code: J90 - Pleural effusion, not elsewhere classified (2) Community acquired bacterial pneumonia ICD Code: J15.9 - Unspecified bacterial pneumonia Assessment and Plan 66-year-old man with Community-acquired bacterial pneumonia CT chest noted with finding of consolidation Currently on azithromycin and Zosyn Pneumococcal and Legionella urinary antigens negative Sputum culture negative S/p thoracentesis Fluid growing Fusobacterium and anaerobic gram positive Maintain oxygen saturation above 88%, DuoNeb and Mucinex ID consulted, appreciate recs Large right pleural effusion Status post thoracentesis pending cytology report Appreciate input from pulmonary medicine , as pleural effusion has multiple septations therefore cannot be completely aspirated percutaneously Cardiothoracic surgery plan for VATS + decortication August 14, 2017 Received Zosyn, Vancomycin and vancomycin. ABX at DC: Unasyn 3 grams IV Q6H. Stop Treatment: Sep 20, 2017. Pleural fluid culture positive for anaerobic gram-positive cocci, Fusobacterium species Tumor markers negative Chest tube removed Anorexia/weight loss Patient with complicated abdominal surgeries for unclear reasons as he is a poor historian, medical records requested from the [place] CT of the abdomen/pelvis noted Tumor markers including AFP, CA 19 9, CEA, LDH all negative Normochromic normocytic anemia H&H stable and continue to monitor Thrombocytosis Likely 2/2 current infectious process, continue to monitor Hyperlipidemia/coronary artery disease Continue home medications once reconciled Hepatitis C Follow-up as an outpatient Chronic pain On Suboxone at home Morphine for pain Depression /anxiety: Consult psychiatry. Start Ativan 0.5 mg po q8hrs prn. Went for VATS by Dr Montez 08/14/[address] with serosanguineous fluid Also consult palliative care for goals of care , patient is full code and wants everything done. DC when improved and cleared by consultants. Improved significantly. ABX at DC per ID recommendations. DC when arrangements are done Discussed with the patient, nurse. Jacinda Garza MD Aug 21, 2017 14:28
== END 2017-08-21 17:30 | disposition home health service (06) | DRG 163 ==
LOC: NEPC 16:45 → NEDA 20:10 → N04A 23:23 → HCPC 08-14 16:17
PROVIDERS: ADMIT Hospitalist; ATTEND Hospitalist
PROC: 0W993ZX Drainage of Right Pleural Cavity, Percutaneous Approach, Diagnostic (ICD-10-PCS; 2017-08-09)
PROC: 0W994ZX Drainage of Right Pleural Cavity, Percutaneous Endoscopic Approach, Diagnostic (ICD-10-PCS; 2017-08-14)
PROC: 0BNK4ZZ Release Right Lung, Percutaneous Endoscopic Approach (ICD-10-PCS; principal; 2017-08-14 12:52)
PROC: 02HV33Z Insertion of Infusion Device into Superior Vena Cava, Percutaneous Approach (ICD-10-PCS; 2017-08-17)
DX: J86.9 Pyothorax without fistula (principal); J15.8 Pneumonia due to other specified bacteria; J90 Pleural effusion, not elsewhere classified; E87.1 Hypo-osmolality and hyponatremia; J44.0 Chronic obstructive pulmonary disease with (acute) lower respiratory infection; I10 Essential (primary) hypertension; B19.20 Unspecified viral hepatitis C without hepatic coma; E78.5 Hyperlipidemia, unspecified; I25.10 Atherosclerotic heart disease of native coronary artery without angina pectoris; R63.4 Abnormal weight loss; G89.29 Other chronic pain; M79.7 Fibromyalgia; F17.210 Nicotine dependence, cigarettes, uncomplicated; R59.0 Localized enlarged lymph nodes; M54.9 Dorsalgia, unspecified; F43.10 Post-traumatic stress disorder, unspecified; F43.23 Adjustment disorder with mixed anxiety and depressed mood; B96.89 Other specified bacterial agents as the cause of diseases classified elsewhere; D64.9 Anemia, unspecified; R79.89 Other specified abnormal findings of blood chemistry; G47.00 Insomnia, unspecified; Z51.5 Encounter for palliative care; Z88.8 Allergy status to other drugs, medicaments and biological substances; Z98.1 Arthrodesis status; Z95.5 Presence of coronary angioplasty implant and graft; Z82.49 Family history of ischemic heart disease and other diseases of the circulatory system
CPT/HCPCS: 32555; 36569; 36600; 71045; 71046; 71260; 74177; 76937; 80048; 80053; 81001; 82105; 82378; 82805; 82945; 82948; 83605; 83615; 83735; 84157; 85025; 85610; 86301; 86403; 86850; 86900; 86901; 87015; 87040; 87070; 87102; 87116; 87185; 87205; 87206; 87449; 88112; 88305; 89051; 93005; 94150; 94640; 94664; 94667; 94668; 96365; 96367; C1729; C9290; J0295; J0456; J0696; J1100; J1642; J1644; J1940; J2270; J2405; J2543; J2710; J3010; J3370; J7030; J7040; J7050; J7120; J7613; Q9963; Q9967